=== PATIENT | male | born 1965 | race Caucasian/White ===

== ENCOUNTER 2021-04-30 12:29 | Inpatient (IN) | payer MEDICARE, SELFPAY ==
--- NOTE | 2021-04-30 | DI.ECHO.S_ITS ---
[facility]---------+ [facility] +---------+ : : [address] : [place] : : : : [id number] : : : : Phone: [phone]---------+ Echocardiogram Report + + :Name: JACKLYN BEARD Study Date: 05/01/2021 Height: 73 in : :[facility] ReadingLocation: Weight: 271 lb : : Gender: Male BSA: 2.4 m2 : :: 1965 Age: 55 yrs BP: 168/98 mmHg: :Reason For Study: CVA : : Performed By: James Betancourt : :Referring: DAMIEN LAW : + + Interpretation Summary The patient was in normal sinus rhythm during the exam. The left ventricle is normal in size. The ejection fraction is estimated to be 55-60%. No obvious LV thrombus seen. There appears to be hypokinesis of basal to mid inferior wall. The right ventricle is normal in size and function. No gross significant valvular abnormality seen. The atrial septum is aneurysmal. Injection of contrast documented no interatrial shunt. The IVC is of normal diameter and collapses greater than 50% with a sniff. This suggests a low right atrial pressure of 3 mm Hg. Procedure: A two-dimensional transthoracic echocardiogram with color flow and Doppler was performed. The study quality was technically difficult. There is no prior echocardiogram noted for this patient. The subcostal views were difficult to obtain and are suboptimal in quality. Aquisition of images difficult, patient very confused and unable to follow commands. The patient was in normal sinus rhythm during the exam. The patient had occasional PACs during the exam. Left Ventricle: The left ventricle is normal in size. Proximal septal thickening is noted. The echo findings are consistent with left ventricular outflow obstruction. There is no thrombus. The ejection fraction is estimated to be 55-60%. There appears to be hypokinesis of basal to mid inferior wall. Diastolic parameters suggest a relaxation abnormality of the left ventricle, consistent with probable normal filling pressures. Right Ventricle: The right ventricle is normal in size and function. Atria: Both atria are normal in size. Bubble study slide 57. No obvious shunting. The atrial septum is aneurysmal. Injection of contrast documented no interatrial shunt. The thickening of interatrial septum suggests lipomatous hypertrophy. Mitral Valve: The mitral valve is normal. There is no mitral regurgitation noted. Aortic Valve: The aortic valve is not well visualized. The aortic valve opens well. There is no aortic valve stenosis. No aortic regurgitation is present. Tricuspid Valve: The tricuspid valve is not well visualized, but is grossly normal. Pulmonary artery pressures cannot be estimated because of the lack of a measurable TR jet velocity but the IVC suggests a CVP of around 3 mmHg. There is trace tricuspid regurgitation. Pulmonic Valve: The pulmonic valve is not well visualized. Great Vessels: The aortic root is borderline dilated. The ascending aorta is normal in size. The aortic arch is normal in size. The IVC is of normal diameter and collapses greater than 50% with a sniff. This suggests a low right atrial pressure of 3 mm Hg. Pericardium/ Pleura There is no pericardial effusion. There is an anterior echo-free space consistent with a fat pad. There is no pleural effusion. MMode/2D Measurements & Calculations LVIDd: 4.8 cm LVOT diam: 2.1 cm LVIDs: 3.3 cm Ao root diam: 3.8 cm FS: 31.1 % asc Aorta Diam: 3.5 cm IVSd: 0.86 cm Ao Arch Diam (Prox Trans): 3.2 cm LVPWd: 1.5 cm LV engel. diameter/BSA (cm/m^2): 2.0 LV sys. diameter/BSA (cm/m^2): 1.4 LA A2 area: 23.2 cm2 RA long axis: 5.4 cm LA A4 area: 24.6 cm2 RA area: 16.3 cm2 LA length (vol): 7.2 cm RA vol: 42.1 ml LA vol: 67.1 ml RA : 17.2 ml/m2 LA vol index: 27.4 ml/m2 TAPSE: 2.0 cm Doppler Measurements & Calculations Ao V2 max: 119.5 cm/sec LVOT Max Willian: 81.6 cm/sec Ao V2 mean: 91.4 cm/sec LV V1 max P.7 mmHg Ao max P.7 mmHg LV V1 VTI: 15.8 cm Ao mean P.5 mmHg JENNIFER(I,D): 2.8 cm2 Ao V2 VTI: 19.8 cm JENNIFER(V,D): 2.4 cm2 sev ratio: 0.80 JENNIFER indexed to BSA (cm^2/m^2): 1.1 MV E max willian: 46.3 cm/sec PA V2 max: 79.2 cm/sec MV A max willian: 81.8 cm/sec PA V2 mean: 63.3 cm/sec MV E/A: 0.57 PA mean P.7 mmHg Med Peak E' Willian: 5.3 cm/sec PA pr(Accel): 19.1 mmHg E/E' med: 8.8 Lat Peak E' Willian: 6.5 cm/sec E/E' lat: 7.1 E/e' average: 8.0 MV dec time: 0.36 sec SV(LVOT): 54.8 ml Reading Physician:11:46 AM
[2021-04-30 13:13] VITALS: BP 218/118; PULSE 95; RESP 19; TEMP 36.9; O2SAT 100; BMI 37.1
--- NOTE | 2021-04-30 13:24 | DI.CT.S_ITS ---
PROCEDURE: CT HEAD/BRAIN WO CON INDICATIONS: r/o cva symptoms since Weds. TECHNIQUE: Noncontrast 4.5 mm thick angled axial sections acquired from the foramen magnum to the vertex, with coronal and sagittal reformats. For radiation dose reduction, the following was used: automated exposure control, adjustment of mA and/or kV according to patient size. COMPARISON: None. FINDINGS: Image quality: Excellent. CSF spaces: Basal cisterns are patent. No extra-axial fluid collections. Ventricles are normal in size and shape. Brain: There is a moderate to large hypodensity involving the left temporal lobe and occipital, suspicious for late subacute infarct. No mass effects or midline shift. No intracranial masses or hemorrhage. There is mild cerebral volume loss. Skull and face: Calvarium and visualized facial bones are intact, without suspicious lesions. Sinuses: Visualized sinuses and mastoids are clear. IMPRESSION: Moderate to large-sized hypodensity in the left temporal lobe and occipital, suspicious for late subacute infarct. Recommend MRI for follow-up evaluation. Dictated by: Jeanine Christian M.D. on 04/30/2021 at 13:47 Approved by: Jeanine Christian M.D. on 04/30/2021 at 13:52
--- NOTE | 2021-04-30 14:03 | DI.RAD.S_ITS ---
PROCEDURE: XR CHEST 1V INDICATIONS: Possible stroke TECHNIQUE: One view of the chest was acquired. COMPARISON: None. FINDINGS: Surgical changes and devices: None. Lungs and pleura: Lungs are clear. No pleural effusions or pneumothorax. Poor inspiratory effort does limit evaluation. Mediastinum: Mediastinal contours appear normal. Heart size is normal. Bones and chest wall: No suspicious bony lesions. Overlying soft tissues appear unremarkable. IMPRESSION: Normal chest, noting poor inspiratory effort. Dictated by: Monica Wray M.D. on 04/30/2021 at 14:29 Approved by: Monica Wray M.D. on 04/30/2021 at 14:29
--- NOTE | 2021-04-30 14:36 | DI.MRI.S_ITS ---
PROCEDURE: MR STROKE Pre- and post-contrast brain MRI, non-contrast brain MR angiogram, pre- and postcontrast neck MR angiogram INDICATIONS: stroke speech TECHNIQUE: Brain: Noncontrast axial T1 spin echo, axial T2 fast spin echo, sagittal and axial FLAIR, coronal T2 fast spin echo, axial gradient echo, axial diffusion and ADC through the brain. After the administration of contrast, axial 3D VIBE of the cranial vasculature and brain. Brain MRA: Non-contrast 3-D time of flight MR angiogram, with multiple lmudbzw-gvsyuzsnh-ciflwbyoqw (MIP) reformats performed. Neck MRA: Axial and sagittal TruFISP through the neck. Coronal dynamic MR angiogram during administration of contrast in the arterial and venous phases, with 3-dimenstional oqrhsus-flhqvlaco-wjjiatqimf (MIP) reformats constructed from subtraction images. COMPARISON: [facility], CR, XR CHEST 1V, 04/30/2021, 14:04. [facility], CT, CT HEAD/BRAIN WO CON, 04/30/2021, 13:36. FINDINGS: Image quality: Excellent. BRAIN: CSF spaces: Ventricles are normal in size and shape. Basal cisterns are patent. No extra-axial fluid collections. Brain: There is a moderate to large area of restricted diffusion involving the left temporal lobe including the insula cortex, as well as the left occipital lobe, consistent with acute or subacute infarct. There is cerebral edema. No mass effect. No intracranial bleed. Mild periventricular white matter chronic small vessel ischemic changes are present. Brainstem appears normal. Normal intravascular flow voids are present. No abnormal intracranial enhancement. Skull and face: Calvarial marrow signal is normal. Orbits appear normal. Sinuses: Sinuses and mastoids are clear. BRAIN MR ANGIOGRAM: Anterior circulation: Intracranial internal carotid arteries are normal in size and enhancement. The flow within the paired anterior cerebral arteries is normal and symmetric. There is diffuse irregularity of the M1 segment of the left vertebral artery. There is high-grade stenosis or possible occlusion of the inferior division of M2 of the left middle cerebral artery. A short segment cbuymaix-wz-jqme grade stenosis is seen in the proximal right M2 segment The anterior communicating artery is seen. Posterior circulation: Dominant left vertebral artery. The right terminal vertebral artery is hypoplastic and terminates at PICA. The left vertebral artery continues to a normal appearing basilar artery. origin of posterior cerebral arteries bilaterally. There is aplastic or hypoplasia of posterior communicating arteries bilaterally. The flow within the posterior cerebral arteries is normal and symmetric. No high-grade stenosis, occlusions, or aneurysms. NECK MR ANGIOGRAM: Carotids: Great vessels demonstrate a conventional anatomy as they arise from the aortic arch. The origins of the common carotid arteries appear patent. The calibers and courses of both common carotid arteries are normal. There is mild stenosis at the left carotid bifurcation (less than 20%). Right carotid bifurcation is normal. The internal carotid arteries demonstrate normal course and caliber. Posterior circulation: The origins of the vertebral arteries are suboptimally visualized. More superior portions of both vertebral arteries demonstrate normal course and caliber, and join to form a normal appearing basilar artery. Miscellaneous: Subclavian arteries appear patent. Pre-contrast images through the neck show no soft tissue abnormalities. IMPRESSION: BRAIN MRI: 1. Moderate to large area of acute or subacute infarct involving the left temporoparietal lobe. No mass effect or intracranial bleed. BRAIN MR ANGIOGRAM: 1. 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 There is also diffuse irregularity of the M1 segment of the left renal cerebral artery. 2. Short segment moderate to high-grade stenosis of the right M2 segment. 3. origin of posterior cerebral arteries bilaterally. 4. Dominant left vertebral artery which supplies the basilar artery. The right vertebral artery terminates at PICA. NECK MR ANGIOGRAM: No high-grade stenosis or occlusion in cervical carotid arteries or vertebral arteries. Dictated by: Jeanine Christian M.D. on 04/30/2021 at 15:45 Approved by: Jeanine Christian M.D. on 04/30/2021 at 16:24
--- NOTE | 2021-04-30 14:39 | ED_ITS ---
HPI - Neuro Symptoms/Deficit General Chief Complaint: Neuro Symptoms/Deficit Stated Complaint: Possible Stroke Monday Time Seen by Provider: 04/30/21 14:27 Source: patient and family Mode of arrival: Family Vehicle Limitations: no limitations History of Present Illness HPI Narrative: Patient is a 55-year-old male who presents with speech difficulty ongoing for the last 2 days. His mother noticed it 2 days ago. She did not see him yesterday but his speech continued to be bad today. He is unable to communicate and get the correct words out. He no weakness he does have some right-sided facial droop. No prior history of stroke or TIA. Patient is overall a poor historian because of symptoms. On Anticoagulants: No Related Data Home Medications Medication Instructions Recorded Confirmed No Known Home Medications 04/30/21 04/30/21 Allergies Allergy/AdvReac Type Severity Reaction Status Date / Time No Known Drug Allergies Allergy Verified 04/30/21 13:13 Review of Systems Review of Systems ROS Unobtainable: Unobtainable due to medical condition Hematologic/Lymphatic On Anticoagulants: No Patient History Social History household members: friend(s) Smoking Status: Current every day smoker alcohol intake: current Smoking Status: Current every day smoker tobacco type: cigarettes alcohol intake frequency: 3 or more drinks per day Alcohol type: hard liquor Substance Use Type: does not use Exam Initial Vital Signs Initial Vital Signs: Vital Signs Temperature 98.4 F 04/30/21 13:13 Pulse Rate 95 H 04/30/21 13:13 Respiratory Rate 19 04/30/21 13:13 Blood Pressure 218/118 H 04/30/21 13:13 Pulse Oximetry 100 04/30/21 13:13 GENERAL: Alert 55-year-old maleand in no acute distress. HEENT: Head atraumatic,EOMI, pupils reactive, face symmetric, moist] mucous membranes CARDIOVASCULAR: Regular rate and rhythm without murmurs, rubs or gallops. RESPIRATORY: Breath sounds equal bilaterally, no wheezes rales or rhonchi. ABDOMEN: Soft, nontender. Normoactive bowel sounds all 4 quadrants. No guarding or rebound. EXTREMITIES: Normal range of motion, no clubbing or edema. Neurovascularly intact NEUROLOGICAL: Alert and oriented x1. 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 SKIN: Warm, dry, no laceration, no petechiae, no rashes or lesions. Scores NIH Stroke Scale Level of Conciousness: Alert, keenly responsive Ask month/age: Answers neither question correctly, aphasic, stuporous, coma Open/close eyes, close hand: Performs both tasks correctly Best gaze horizontal: Normal Visual levin: No visual loss Facial palsy: Normal symetrical movement Left arm drift: No drift for full 10 sec Right arm drift: No drift for full 10 sec Left leg drift: No drift for full 5 sec Right leg drift: No drift for full 5 sec Limb ataxia: Absent Sensory on face/arms/legs: Normal, no sensory loss Best language: Severe aphasia, not much is understood, fragmented Dysarthria: Mild to mod,some slurring Extinction or inattention: No abnormality Total NIH Stroke scale score: 5 Course Orders Ordered: ED Orders 04/30/21 13:24 CT head/brain wo con Stat 04/30/21 14:03 XR chest 1V Stat Urine Drug Screen, Rapid Stat 04/30/21 14:36 MR stroke Stat 04/30/21 14:50 COVID19 - ADMIT (CARPET CUTTER swab/PCR) Stat Complete Blood Count AUTO DIFF Stat Comprehensive Metabolic Panel Stat Troponin & CK Cardiac Panel Stat 04/30/21 16:06 EKG-12 Lead Stat Acetaminophen (Acetaminophen 325 Mg Tablet) 650 mg PO Q6HR PRN PRN Reason: Fever/Mild Pain (1-3) Aspirin (Aspirin Ec 81 Mg Tablet) 81 mg PO DAILY ADRYAN Atorvastatin Calcium (Atorvastatin 20 Mg Tablet) 80 mg PO BEDTIME ADRYAN Clopidogrel Bisulfate (Clopidogrel 75 Mg Tablet) 75 mg PO DAILY ADRYAN Enoxaparin Sodium (Enoxaparin 40 Mg/0.4 Ml Syringe) 40 mg SUBCUT DAILY ADRYAN Naloxone HCl (Naloxone 0.4 Mg/Ml Vial) 0.2 mg IV Q2MIN PRN PRN Reason: Opiate Reversal Ondansetron HCl (Ondansetron 4 Mg/2 Ml Inj) 4 mg IV Q8HR PRN PRN Reason: Nausea And Vomiting Discontinued Medications Aspirin (Aspirin 81 Mg Chew Tab) 324 mg PO NOW ONE Stop: 04/30/21 17:31 Last Admin: 04/30/21 17:37 Dose: 324 mg Documented by: KYREE Clopidogrel Bisulfate (Clopidogrel 75 Mg Tablet) 75 mg PO NOW ONE Stop: 04/30/21 17:31 Last Admin: 04/30/21 17:37 Dose: 75 mg Documented by: YKREE Vital Signs Vital signs: Vital Signs - 8 hr 04/30/21 13:13 04/30/21 14:43 04/30/21 17:41 Temperature 98.4 F 98.7 F Pulse Rate 95 H 87 70 Respiratory Rate 19 16 Blood Pressure 218/118 H 184/105 H 167/105 H Pulse Oximetry 100 98 99 MDM - Neuro Symptoms/Deficit Lab Data Result diagrams: 04/30/21 14:50 04/30/21 14:50 Labs: Lab Results 04/30/21 04/30/21 04/30/21 Range/Units 14:50 14:50 14:50 WBC 10.2 (4.5-11.0) X10^3/uL RBC 4.90 (4.5-5.9) X10^6/uL Hgb 15.5 (13.5-17.5) g/dL Hct 44.3 (41-53) % MCV 90.6 (80-100) fL MCH 31.6 (26-34) PG MCHC 34.9 (30-36) % RDW 13.3 (11.6-14.8) % Plt Count 230 (150-400) X10^3/uL Neut % (Auto) 74.4 (50-75) % Lymph % (Auto) 17.6 L (25-40) % Bland % (Auto) 6.3 (3-14) % Eos % (Auto) 0.8 L (2-4) % Baso % (Auto) 0.9 (0-2) % Neut # (Auto) 7600 H (5384-2828) /uL Lymph # (Auto) 1800 (6467-6719) /uL Bland # (Auto) 600 (0-900) /uL Eos # (Auto) 100 (0-450) /uL Baso # (Auto) 100 (0-100) /uL Sodium 134 L (137-145) mmol/L Potassium 4.1 (3.4-5.1) mmol/L Chloride 99 (98-107) mmol/L Carbon Dioxide 22 (22-32) mmol/L BUN 15 (9-20) mg/dL Creatinine 0.70 (0.66-1.25) mg/dL Estimated GFR > 60.0 (>60) mL/min BUN/Creatinine Ratio 21.4 (6-22) Glucose 265 H (70-100) mg/dL Hemoglobin A1c (4.0-6.0) % Calcium 9.9 (8.4-10.2) mg/dL Total Bilirubin 0.9 (0.2-1.3) mg/dL AST 32 (17-59) IU/L ALT 35 (<50) IU/L Alkaline Phosphatase 79 (38-126) U/L Total Creatine Kinase 56 (55-170) U/L CK-MB (CK-2) TNP CK-MB (CK-2) Rel Index TNP Troponin I < 0.012 (0.01-0.034) ng/mL Total Protein 8.1 (6.3-8.2) g/dL Albumin 4.7 (3.5-5.0) g/dL Globulin 3.4 (1.7-4.1) g/dL Albumin/Globulin Ratio 1.4 (1.0-2.8) SARS-CoV-2 (PCR) Negative (Negative) 04/30/21 Range/Units 14:50 WBC (4.5-11.0) X10^3/uL RBC (4.5-5.9) X10^6/uL Hgb (13.5-17.5) g/dL Hct (41-53) % MCV (80-100) fL MCH (26-34) PG MCHC (30-36) % RDW (11.6-14.8) % Plt Count (150-400) X10^3/uL Neut % (Auto) (50-75) % Lymph % (Auto) (25-40) % Bland % (Auto) (3-14) % Eos % (Auto) (2-4) % Baso % (Auto) (0-2) % Neut # (Auto) (1687-0884) /uL Lymph # (Auto) (6806-6285) /uL Bland # (Auto) (0-900) /uL Eos # (Auto) (0-450) /uL Baso # (Auto) (0-100) /uL Sodium (137-145) mmol/L Potassium (3.4-5.1) mmol/L Chloride (98-107) mmol/L Carbon Dioxide (22-32) mmol/L BUN (9-20) mg/dL Creatinine (0.66-1.25) mg/dL Estimated GFR (>60) mL/min BUN/Creatinine Ratio (6-22) Glucose (70-100) mg/dL Hemoglobin A1c 10.4 H (4.0-6.0) % Calcium (8.4-10.2) mg/dL Total Bilirubin (0.2-1.3) mg/dL AST (17-59) IU/L ALT (<50) IU/L Alkaline Phosphatase (38-126) U/L Total Creatine Kinase (55-170) U/L CK-MB (CK-2) CK-MB (CK-2) Rel Index Troponin I (0.01-0.034) ng/mL Total Protein (6.3-8.2) g/dL Albumin (3.5-5.0) g/dL Globulin (1.7-4.1) g/dL Albumin/Globulin Ratio (1.0-2.8) SARS-CoV-2 (PCR) (Negative) Imaging Data CT scan - head: Radiologist's Impression: PROCEDURE:? CT HEAD/BRAIN WO CON ? INDICATIONS:? r/o cva symptoms since . ? TECHNIQUE:? Noncontrast 4.5 mm thick angled axial sections acquired from the foramen magnum to the vertex, with coronal and sagittal reformats.? For radiation dose reduction, the following was used:? automated exposure control, adjustment of mA and/or kV according to patient size.? ? COMPARISON:? None. ? FINDINGS:? Image quality:? Excellent.? ? CSF spaces:? Basal cisterns are patent.? No extra-axial fluid collections.? Vent ricles are normal in size and shape.? ? Brain:? There is a moderate to large hypodensity involving the left temporal lobe and occipital, suspicious for late subacute infarct.? No mass effects or midline shift.? No intracranial masses or hemorrhage.? There is mild cerebral volume loss.? ? Skull and face:? Calvarium and visualized facial bones are intact, without suspicious lesions.? ? Sinuses:? Visualized sinuses and mastoids are clear.? ? IMPRESSION:? Moderate to large-sized hypodensity in the left temporal lobe and occipital, suspicious for late subacute infarct.? Recommend MRI for follow-up evaluation. ? ? Dictated by: Jeanine Christian M.D. on 04/30/2021 at 13:47 ? ? Approved by: Jeanine Christian M.D. on 04/30/2021 at 13:52 MR brain: Radiologist's Impression: PROCEDURE:? MR STROKE Pre- and post-contrast brain MRI, non-contrast brain MR angiogram, pre- and postcontrast neck MR angiogram ? INDICATIONS:? stroke speech ? TECHNIQUE:? Brain:? Noncontrast axial T1 spin echo, axial T2 fast spin echo, sagittal and axial FLAIR, coronal T2 fast spin echo, axial gradient echo, axial diffusion and ADC through the brain.? After the administration of contrast, axial 3D VIBE of the cranial vasculature and brain.? Brain MRA:? Non-contrast 3-D time of flight MR angiogram, with multiple twpzzaq-egomczbzb-dfesinotia (MIP) reformats performed.? Neck MRA:? Axial and sagittal TruFISP through the neck.? Coronal dynamic MR angiogram during administration of contrast in the arterial and venous phases, with 3- dimenstional suzetzy-auwwjnprx-bbkvuibfvh (MIP) reformats constructed from subtraction images.? ? COMPARISON:? [facility], CR, XR CHEST 1V, 04/30/2021, 14:04.? [facility], CT, CT HEAD/BRAIN WO CON, 04/30/2021, 13:36. ? FINDINGS:? Image quality:? Excellent.? ? BRAIN:? CSF spaces:? Ventricles are normal in size and shape.? Basal cisterns are patent.? No extra-axial fluid collections.? Brain:? There is a moderate to large area of restricted diffusion involving the left temporal lobe including the insula cortex, as well as the left occipital lobe, consistent with acute or subacute infarct.? There is cerebral edema.? No mass effect.? No intracranial bleed.? Mild periventricular white matter chronic small vessel ischemic changes are present.? Brainstem appears normal.? Normal intravascular flow voids are present.? No abnormal intracranial enhancement.? Skull and face:? Calvarial marrow signal is normal.? Orbits appear normal.? Sinuses:? Sinuses and mastoids are clear.? ? BRAIN MR ANGIOGRAM:? Anterior circulation:? Intracranial internal carotid arteries are normal in size and enhancement.? The flow within the paired anterior cerebral arteries is normal and symmetric.? There is diffuse irregularity of the M1 segment of the left vertebral artery. ?There is high-grade stenosis or possible occlusion of the inferior division of M2 of the left middle cerebral artery.? A short segment brhdmopb-uf-kpff grade stenosis is seen in the proximal right M2 segment The anterior communicating artery is seen.? Posterior circulation:? Dominant left vertebral artery.? The right terminal vertebral artery is hypoplastic and terminates at PICA.? The left vertebral artery continues to a normal appearing basilar artery.? origin of posterior cerebral arteries bilaterally.? There is aplastic or hypoplasia of posterior communicating arteries bilaterally.? The flow within the posterior cerebral arteries is normal and sy mmetric.? No high-grade stenosis, occlusions, or aneurysms.? ? NECK MR ANGIOGRAM:? Carotids:? Great vessels demonstrate a conventional anatomy as they arise from the aortic arch.? The origins of the common carotid arteries appear patent.? The calibers and courses of both common carotid arteries are normal.? There is mild stenosis at the left carotid bifurcation (less than 20%).? Right carotid bifurcation is normal.? The internal carotid arteries demonstrate normal course and caliber.? Posterior circulation:? The origins of the vertebral arteries are suboptimally visualized.? More superior portions of both vertebral arteries demonstrate normal course and caliber, and join to form a normal appearing basilar artery.? Miscellaneous:? Subclavian arteries appear patent.? Pre-contrast images through the neck show no soft tissue abnormalities.? ? IMPRESSION:? ? BRAIN MRI:? ? 1. Moderate to large area of acute or subacute infarct involving the left temporoparietal lobe.? No mass effect or intracranial bleed.? ? BRAIN MR ANGIOGRAM:? ? 1. High-grade stenosis/occlusion of the inferior division of M2 segment of the left middle cerebral artery.? There is also diffuse irregularity of the M1 segment of the left renal cerebral artery. ? 2. Short segment moderate to high-grade stenosis of the right M2 segment.? ? 3. origin of posterior cerebral arteries bilaterally. ? 4. Dominant left vertebral artery which supplies the basilar artery.? The right vertebral artery terminates at PICA.? ? NECK MR ANGIOGRAM:? ? No high-grade stenosis or occlusion in cervical carotid arteries or vertebral a rteries. ? ? Dictated by: Jeanine Christian M.D. on 04/30/2021 at 15:45 ? ? Approved by: Jeanine Christian M.D. on 04/30/2021 at 16:24 ? ECG Data Interpretation: Normal sinus rhythm rate 86 [place] interval 142 QRS [address] changes T-wave inversion noted in lead 2 only spots of artifact appreciated MDM Narrative Medical decision making narrative: The patient's last known well was 2 days prior he is having obvious word finding issue both CT and MRI confirm large to moderate acute to subacute stroke. He is found to have high-grade stenosis of his him to. I discussed case with tele stroke recommend maximum medical therapy with aspirin 81 mg and Plavix 75 mg along with Lipitor 80 daily and to control all other chronic ongoing health issues. Discussed case with Dr. chapman who happily patient Discharge Plan Departure Patient Disposition: Admitted As Inpatient Clinical Impression: Cerebrovascular accident Admit Date/Time: 04/30/21 17:58 Admit Provider: Tiana Chapman
[2021-04-30 14:43] VITALS: BP 184/105; PULSE 87; TEMP 37.1; O2SAT 98
[2021-04-30 14:56] LABS: Add Manual Diff / Slide Review NO; Basophils Absolute Auto 100 /uL (0-100); Basophils Percent Auto 0.9 % (0-2); Eosinophils Absolute Auto 100 /uL (0-450); Eosinophils Percent Auto 0.8 % (2-4); Hematocrit 44.3 % (41-53); Hemoglobin 15.5 g/dL (13.5-17.5); Lymphocytes Absolute Auto 1800 /uL (1100-4500); Lymphocytes Percent Auto 17.6 % (25-40); Mean Corpuscular HGB Conc 34.9 % (30-36); Mean Corpuscular Hemoglobin 31.6 PG (26-34); Mean Corpuscular Volume 90.6 fL (80-100); Monocytes Absolute Auto 600 /uL (0-900); Monocytes Percent Auto 6.3 % (3-14); Neutrophils Absolute Auto 7600 /uL (1500-7000); Neutrophils Percent Auto 74.4 % (50-75); Platelet Count 230 X10^3/uL (150-400); Red Cell Distribution Width 13.3 % (11.6-14.8); White Blood Cell Count 10.2 X10^3/uL (4.5-11.0)
[2021-04-30 15:13] LABS: Alanine Aminotransferase 35 IU/L (<50); Albumin 4.7 g/dL (3.5-5.0); Albumin Globulin Ratio 1.4 (1.0-2.8); Alkaline Phosphatase 79 U/L (38-126); Aspartate Aminotransferase 32 IU/L (17-59); BUN Creatinine Ratio 21.4 (6-22); Bilirubin Total 0.9 mg/dL (0.2-1.3); Blood Urea Nitrogen 15 mg/dL (9-20); Calcium 9.9 mg/dL (8.4-10.2); Carbon Dioxide 22 mmol/L (22-32); Chloride 99 mmol/L (98-107); Creatine Kinase 56 U/L (55-170); Estimated Glomerular Filt Rate > 60.0 mL/min (>60); Globulin 3.4 g/dL (1.7-4.1); Glucose 265 mg/dL (70-100); HEMOLYSIS 17 (0-50); Potassium 4.1 mmol/L (3.4-5.1); Sodium 134 mmol/L (137-145); Total Protein 8.1 g/dL (6.3-8.2)
[2021-04-30 15:23] LABS: Troponin I < 0.012 ng/mL (0.01-0.034)
[2021-04-30 15:49] LABS: COVID19 - ADMIT (NP swab/PCR) Negative (Negative)
[2021-04-30] MEDS: CLOPIDOGREL 75 MG TABLET PO (17:37)
[2021-04-30] MEDS: ASPIRIN 81 MG CHEW TAB 324 MG PO (17:37)
[2021-04-30 17:41] VITALS: BP 167/105; PULSE 70; RESP 16; O2SAT 99
[2021-04-30 18:48] VITALS: BMI 35.7
[2021-04-30 19:03] VITALS: BP 168/98; PULSE 73; RESP 16; TEMP 37; O2SAT 100
--- NOTE | 2021-04-30 19:03 | PC.ADMIT ---
[id number] [facility] Admission Note: The patient,Alexander Sterling,55 y/o, was given written information regarding hospital policies, unit procedures and contact persons. Patient's smoking status: Current every day smoker. Pt arrvied from ED via w/c. Ambulated to bed. Difficulty finding words. Mom at bedside helping with admission assessment questions. VSS. RA. Denies pain. Noted Left eye erythema. Bed alarm on. C Vital Signs - 8 hr 04/30/21 13:13 04/30/21 14:43 04/30/21 17:41 Temperature 98.4 F 98.7 F Pulse Rate 95 H 87 70 Respiratory Rate 19 16 Blood Pressure 218/118 H 184/105 H 167/105 H Pulse Oximetry 100 98 99 04/30/21 19:03 Temperature 98.6 F Pulse Rate 73 Respiratory Rate 16 Blood Pressure 168/98 H Pulse Oximetry 100
[2021-04-30 20:06] LABS: Hemoglobin A1C% w Est Avg Glu 10.4 % (4.0-6.0)
[2021-04-30 20:51] LABS: Thyroid Stimulating Hormone 1.56 uIU/mL (0.47-4.68)
[2021-04-30] MEDS: chlordiazePOXIDE 10 MG CAPSULE PO (21:54)
[2021-04-30] MEDS: ATORVASTATIN 20 MG TABLET 80 MG PO (21:54)
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
[2021-05-01 00:17] VITALS: BP 162/68; PULSE 67; RESP 16; TEMP 36.3; O2SAT 98
[2021-05-01 04:54] VITALS: BP 137/93; PULSE 65; RESP 18; TEMP 37.1; O2SAT 100
[2021-05-01 06:07] LABS: UR Morphine/Opiate cutoff 300 Negative (Negative); Ur Creatinine 20 (Normal); Ur Specific Gravity 1.025 (Normal); Urine Amphetamines Negative (Negative); Urine Barbiturates Negative (Negative); Urine Benzodiazepines Negative (Negative); Urine Cocaine Negative (Negative); Urine MDMA Negative (Negative); Urine Methadone Negative (Negative); Urine Methamphetamines Negative (Negative); Urine Oxycodone Negative (Negative); Urine Phencyclidine Negative (Negative); Urine Tetrahydrocannabinol Negative (Negative); Urine Tricyclic Antidepressant Negative (Negative); Urine pH 5 (Normal)
[2021-05-01 07:20] LABS: Add Manual Diff / Slide Review NO; Basophils Absolute Auto 100 /uL (0-100); Basophils Percent Auto 0.9 % (0-2); Eosinophils Absolute Auto 200 /uL (0-450); Eosinophils Percent Auto 2.4 % (2-4); Hematocrit 41.8 % (41-53); Hemoglobin 14.9 g/dL (13.5-17.5); Lymphocytes Absolute Auto 2100 /uL (1100-4500); Lymphocytes Percent Auto 26.4 % (25-40); Mean Corpuscular HGB Conc 35.5 % (30-36); Monocytes Absolute Auto 700 /uL (0-900); Monocytes Percent Auto 8.5 % (3-14); Neutrophils Absolute Auto 4900 /uL (1500-7000); Neutrophils Percent Auto 61.8 % (50-75); Platelet Count 194 X10^3/uL (150-400); Red Blood Cell Count 4.65 X10^6/uL (4.5-5.9); Red Cell Distribution Width 13.7 % (11.6-14.8); White Blood Cell Count 7.9 X10^3/uL (4.5-11.0)
[2021-05-01 07:33] LABS: Cholesterol 212 mg/dL (140-199); HDL Cholesterol 41 mg/dL (40-60); LDL Cholesterol Calculated 126 mg/dL (<100); Triglycerides 223 mg/dL (35-150)
[2021-05-01 07:34] LABS: Alanine Aminotransferase 32 IU/L (<50); Albumin Globulin Ratio 1.3 (1.0-2.8); Alkaline Phosphatase 65 U/L (38-126); Aspartate Aminotransferase 31 IU/L (17-59); BUN Creatinine Ratio 21.2 (6-22); Bilirubin Total 0.9 mg/dL (0.2-1.3); Bilirubin Unconjugated 0.9 mg/dL (0.0-1.1); Blood Urea Nitrogen 14 mg/dL (9-20); Calcium 9.2 mg/dL (8.4-10.2); Carbon Dioxide 27 mmol/L (22-32); Chloride 101 mmol/L (98-107); Estimated Glomerular Filt Rate > 60.0 mL/min (>60); Glucose 249 mg/dL (70-100); HEMOLYSIS < 15 (0-50); Magnesium 1.9 mg/dL (1.6-2.3); Potassium 3.7 mmol/L (3.4-5.1); Sodium 136 mmol/L (137-145)
--- NOTE | 2021-05-01 08:00 | P.PN_ITS ---
Subjective Subjective Interval history: Patient having difficulty with word-finding and articulation this morning. This has understandably made him feel frustrated, and he was tearful during our conversation. However, he endorses having a good attitude about working with PT/OT, speech therapy, and his overall prognosis. Exam Vital Signs (past 8 hours): - 05/02/21 06:06 Temperature 97.1 F L Pulse Rate 76 Respiratory Rate 18 Blood Pressure 155/86 H Pulse Oximetry 97 Oxygen Delivery Method Room Air Oxygen Flow Rate 0 Const Other: Patient sitting up in bed comfortably upon my entering the room, eating breakfast, and in no apparent acute distress Eyes Other: No scleral icterus appreciated. Neck Other: No carotid bruits appreciated. Resp Other: Clear to auscultation bilaterally. Cardio Other: Regular rate and rhythm. S1 and S2 heart sounds auscultated, with no extra heart sounds or murmurs appreciated. GI Other: Soft, non-distended, non-tender, bowel sounds present. Neuro Other: CN II-XII intact, with no focal motor neurological deficits appreciated. Expressive aphasia appreciated. Objective Labs Result Diagrams: 05/02/21 05:55 05/02/21 05:55 Labs: Laboratory Results - last 24 hr 05/01/21 05/02/21 05/02/21 16:04 05:55 05:55 WBC 7.6 RBC 4.45 L Hgb 14.2 Hct 40.1 L MCV 90.1 MCH 32.0 MCHC 35.5 RDW 13.5 Plt Count 191 Neut % (Auto) 55.0 Lymph % (Auto) 31.7 Sebastian % (Auto) 9.9 Eos % (Auto) 2.9 Baso % (Auto) 0.5 Neut # (Auto) 4200 Lymph # (Auto) 2400 Sebastian # (Auto) 800 Eos # (Auto) 200 Baso # (Auto) 0 Sodium 138 Potassium 3.8 Chloride 102 Carbon Dioxide 30 BUN 11 Creatinine 0.66 Estimated GFR > 60.0 BUN/Creatinine Ratio 16.7 Glucose 196 H Calcium 9.4 Magnesium 2.1 Total Bilirubin 0.8 Conjugated Bilirubin 0.0 Unconjugated Bilirubin 0.7 AST 30 ALT 33 Alkaline Phosphatase 58 Total Protein 7.0 Albumin 3.9 Globulin 3.1 Albumin/Globulin Ratio 1.3 Urine Color Yellow Urine Appearance Clear Urine pH 6.5 Ur Specific [place] 1.010 Urine Protein Negative Urine Glucose (UA) 1+ H Urine Ketones 1+ H Urine Occult Blood Negative Urine Nitrate Negative Urine Bilirubin Negative Urine Urobilinogen 0.2 Ur Leukocyte Esterase Negative Urine RBC 1-5/hpf Urine WBC 0-1/hpf Urine Bacteria None seen Ur Culture Indicated? Cult not indicated [facility] Medical History (Updated 05/01/21 @ 00:01 by HAILY Love) Diabetes type 2, uncontrolled Surgical History (Updated 05/01/21 @ 00:01 by HAILY Love) No history of previous surgery Social History household members: friend(s) Smoking Status: Current every day smoker alcohol intake: current Assessment & Plan Assessment & Plan narrative: Alexander Sterling is admitted for an acute/subacute left parietal/temporal CVA. 1. Acute/subacute left parietal/temporal CVA * Cardiac telemetry * NIH score greater than 5 no. NIH scoring and neuro checks q 6 hours * Dual antiplatelet therapy:? Yes, initiate dual antiplatelet therapy with clopidogrel 75 mg p.o. daily and aspirin 81 mg p.o. daily * Complete Echo with bubble study? * PT/OT/ST evaluation 2. Hypertension, acute with an admission bp of 208/118, present on admission * Allow for permissive hypertension of 220/110 HR 60 to allow for brain per fusion * Allow for permissive hypertension for brain profusion of a systolic of 220 and a diastolic of 105 * IV labetolol if his systolic exceeds 220 or diastolic greater than 105 * Will start lisinopril 20 mg daily today 3. History of polysubstance abuse and alcohol dependence * [facility] protocol * Start oral thiamine, folic acid and a multivitamin * He is started on po librium * Seizure precautions 4. Diabetes type 2, uncontrolled and present on admission * A1c is greater than 10 * Glargine subQ 15 mg at bedtime and low dose correctional scale 5. Coronary artery diseaae * Atorvastatin 80 mg po at bedtime 6. Tobacco dependence * He is written for a Nicoderm patch 14 mcg daily VTE Prophylaxis: Enoxaparin 40 mg once daily Time Spent With Patient Critical Care time: I spent a total of [] minutes of critical care time on this patient's care today; this time is exclusive of procedural time. Quality Stroke Contraindication Not Initiating IV-Tpa: Contraindicated (Outside of window) Onset of Symptoms Date: 05/05/21 Symptom Onset Unknown: Yes Rehab Services Assessed: Stroke rehabilitation
[2021-05-01 08:14] VITALS: BP 160/79; PULSE 70; RESP 16; TEMP 36.8; O2SAT 99
[2021-05-01] MEDS: ENOXAPARIN 40 MG/0.4 ML SYRINGE SUBCUT (08:32)
[2021-05-01] MEDS: MULTIVITAMIN 1 TABLET 1 TAB PO (08:32)
[2021-05-01] MEDS: ASPIRIN EC 81 MG TABLET PO (08:32)
[2021-05-01] MEDS: NICOTINE 14 PATCH 14 MG TOP (08:32)
[2021-05-01] MEDS: chlordiazePOXIDE 10 MG CAPSULE PO ×3 (08:32→20:52)
[2021-05-01] MEDS: FOLIC ACID 1 MG TABLET PO (08:32)
[2021-05-01] MEDS: THIAMINE 100 MG TABLET PO (08:40)
[2021-05-01] MEDS: INSULIN LISPRO 100 UNIT/ML 3ML VIAL SUBCUT ×4 (09:25→20:53)
--- NOTE | 2021-05-01 11:25 | OT.IP.EVAL ---
Current Diagnoses Cerebral infarction, unspecified (04/30/21) Past Medical History (Last Updated 05/01/21 @ 00:01 by HAILY Love) Diabetes type 2, uncontrolled No history of previous surgery Surgical History (Last Updated 05/01/21 @ 00:01 by HAILY Love) No history of previous surgery Occupational Therapy Inpatient Evaluation/Re-Eval M2 OT-IP Current Condition Start: 05/01/21 12:21 Freq: Status: Active Protocol: Document 05/01/21 12:23 [facility] (Rec: 05/01/21 12:36 [facility] [id number]) Occupational Therapy Current Condition Current Condition Evaluation Date 05/01/21 Treatment Diagnosis Left parietal/temporal CVA Diagnosis Onset Date 04/30/21 M3 OT- IP Subjective and Pain Start: 05/01/21 12:21 Freq: Status: Active Protocol: Document 05/01/21 12:23 [facility] (Rec: 05/01/21 12:36 [facility] [id number]) OT- Subjective Occupational Therapy Visit Type Type Initial Evaluation Visit Start Time 10:25 Visit Stop Time 11:25 Total Visit Minutes 60 Occupational Therapy Visit Comments Patient Comments Pt agreed to work with OT. Patient/Caregiver Goals Pt not able to state due to severe expressive aphasia at this time. M4 OT- IP ADL's Start: 05/01/21 12:21 Freq: Status: Active Protocol: Document 05/01/21 12:23 [facility] (Rec: 05/01/21 12:36 [facility] [id number]) OT ADL-Grooming General Evaluation Grooming Ability Standby Assistance Areas Needing Assistance Retrieving/Set-up of Grooming Items Comments OT Grooming Comments Pt able to stand at sink for grooming needs. OT ADL-Oral Care General Eval Oral Care Ability Independent OT ADL-Dressing General Eval Lower Body Dressing Ability Independent OT ADL-Toileting Comments OT Toileting Comments Pt did not have to use the toilet at the time. OT ADL-Bathing Comments OT Bathing Comments NOt performed. M5 OT- IP IADL's Start: 05/01/21 12:21 Freq: Status: Active Protocol: Document 05/01/21 12:23 [facility] (Rec: 05/01/21 12:36 [facility] [id number]) OT-Instrumental Activities of Daily Living Home Safety Awareness Home Safety Comments Due to expressive >>receptive aphasia pt not able to get the words out to answer questions and would perseverate on words at times, ...turn, turn , w,w,w,w, etc... M6 OT- IP Functional Cognition Start: 05/01/21 12:21 Freq: Status: Active Protocol: Document 05/01/21 12:23 [facility] (Rec: 05/01/21 12:36 [facility] [id number]) Cognitive Factors Limiting Selfcare Function Cognitive Ability Level of Alertness Alert Ability to Follow Commands Able to Follow One Step Commands Cognitive Comments Cognitive Assessment Comments Hard to fully assess. Pt able to follow commands for ADL needs. Pt able to follow multiple directions with cues for [place] Making part B and scored 7 minutes with ZULAY vc which implies severe impairment for visual attention, task switching, speed of processing, mental flexibility and executive functioning. When suggested pt not drive at this time pt understood and got tearful. At times pt able to automatically get the words out, turn off the light, doctor. Pt not able to spell or read the alphabet. Pt able to read the word doctor. Pt given communication pictures to use to help him try to communicate his needs. OT- Vision and Hearing OT- Vision Assessment Vision Assessment Comments Pt able to scan numbers and letter on the paper, but hard to fully assess due to pt's expressive aphasia. M7 OT- IP Mobility and Balance Start: 05/01/21 12:21 Freq: Status: Active Protocol: Document 05/01/21 12:23 [facility] (Rec: 05/01/21 12:36 [facility] [id number]) OT- Bed Mobility Assessment Rolling Level of Assistance Independent Supine to Sit Supine to Sit Assist Independent Sit to Supine Sit to Supine Assist Independent Scooting Scooting to Edge of Bed Independent,Minimal Assistance OT-Transfer Assessment Sit to and From Stand Sit to and from Stand Independent Transfers Transfer Ability Independent Technique Transfer Destination Bed,Chair Devices Transfer Assistive Devices Gait Belt Comments Mobility Comments Pt able to independently walk in the room on his own with good safety. OT- Balance Assessment Sitting Balance and Reactions Static Sitting Balance Ability Normal Dynamic Sitting Balance Ability Normal Standing Balance and Reactions Static Standing Balance Ability Normal Dynamic Standing Balance Ability Good M8 OT- IP Objective Assessments Start: 05/01/21 12:21 Freq: Status: Active Protocol: Document 05/01/21 12:23 [facility] (Rec: 05/01/21 12:36 [facility] [id number]) OT Gross Range of Motion Upper Extremity Range of Motion Assessment Within Functional Limits OT Strength Upper Extremity Strength Assessment Within Functional Limits OT- Coordination Assessment Upper Extremity Finger to Nose Test Within Functional Limits Comments Coordination Comments TO further assess. OT-Muscle Tone Assessment Muscle Tone WNL Yes OT Sensation Assessment Comments Summary Comments Intact for light touch. M9 OT- IP Assessment and Plan Start: 05/01/21 12:21 Freq: Status: Active Protocol: Document 05/01/21 12:23 [facility] (Rec: 05/01/21 12:36 [facility] [id number]) OT Summary Assessment and Plan Potential Rehabilitation Potential Good Analytic Complexity at Evaluation Moderate Summary OT Impairments Coordination,Functional Cognition,Bathing Progress Towards Goals Slow Progress due to Cognition Assessment Summary Pt MOD complexity and main barrier is his expressive aphasia and impairment for executive functioning and problem solving skills. Pt would benefit from outpt [facility] and OT at this time. Goals Dressing Goal Independent Toileting Goal Independent Bathing Goal Independent Toilet Transfer Goal Independent Shower Transfer Goal Independent Days to Meet Goals 5 Frequency of Treatment Frequency Of Treatment Once a Day Treatment Plan OT Treatment Plan ADL Training,Functional Cognition Training,Patient/ Family Education,Discharge Planning Other Treatment Recommendations and Next shower Treatment Focus Discharge Recommendations OT Discharge Recommendations Home with 24/ Assist Available Other Discharge Recommendations outpt [facility]/OT Transportation Needs at Discharge Private Vehicle
--- NOTE | 2021-05-01 11:25 | PT.IIE ---
Current Diagnoses Cerebral infarction, unspecified (04/30/21) Medical History (Last Updated 05/01/21 @ 00:01 by HAILY Love) Diabetes type 2, uncontrolled Physical Therapy Inpatient Evaluation/Re-Eval M1 PT/OT-IP Prior Functional Status Start: 05/01/21 12:26 Freq: NEEDED Status: Active Protocol: Document 05/01/21 11:25 AB (Rec: 05/01/21 12:36 AB [id number]) Medical Review Prior Functional Status Medical History Reviewed Yes Communication pt with difficulty comprehending and with word finding but able to follow instructions Mobility and Gait per nurse: pt lives with a roommate and is independent with mobility Social History Household Members friend(s) Living Arrangements House Additional Social History Comment unable to obtain home set up with pt due to comprehension and expressive issues M2 PT-IP Current Condition Start: 05/01/21 12:26 Freq: NEEDED Status: Active Protocol: Document 05/01/21 11:25 AB (Rec: 05/01/21 12:36 AB [id number]) Physical Therapy Current Condition Current Condition Evaluation Date 05/01/21 Treatment Diagnosis L CVA; difficulty in walking Onset Date 04/30/21 M3 PT-IP Subjective Start: 05/01/21 12:26 Freq: NEEDED Status: Active Protocol: Document 05/01/21 11:25 AB (Rec: 05/01/21 12:36 AB [id number]) Subjective Physical Therapy Visit Type Type Initial Evaluation Visit Start Time 11:25 Visit Stop Time 12:00 Total Visit Minutes 35 Number of ADDRESSOGRAPH OPERATOR Visits 0 M4 PT-IP Mobility and Gait Start: 05/01/21 12:26 Freq: NEEDED Status: Active Protocol: Document 05/01/21 11:25 AB (Rec: 05/01/21 12:36 AB [id number]) PT-Bed Mobility Assessment Supine to Sit Supine to Sit Independent Sit to Supine Sit to Supine Independent PT-Transfer Assessment Sit to and From Stand Sit to and from Stand Independent Equipment Transfer Assistive Device None,Gait Belt Orthotic/Prosthetic Devices or Brace: No Transfers Transfer Destination Bed,Chair Transfer Technique Stand Step Pivot Transfer Ability Level of Assist Independent Comments Mobility Comments attempted to obtain PLOF and home set up but pt unable to comprehend questions despite strategies applied. pt agreed to move with PT. ambulated in room without AD SBA. antalgi gait but without LOB. completed bed mobility independent. pt agreed to walk in the hallway and completed ~ 150 ft without AD SBA. completed up/down stairs using B rails SBA and then repeated again without rails SBA. pt ambulated back to his room SBA without AD. sat on chair. positioned. call light and table placed within reach. Gait Assessment Gait Gait Assistance Required: Standby Assistance Distance (Feet) 250 Able to Maintain Weight Bearing Status Yes During Gait Assistive Devices Assistive Device None,Gait Belt Orthotic/Prosthetic Devices or Brace: No Gait Deviations General Gait Pattern Antalgic Stair Climbing Assessment Evaluation Level of Assist On Stairs Standby Assistance Devices Stair Climbing Assistive Devices None,Left Railing,Right Railing Technique/Endurance Stair Climbing Direction Ascend and Descend Stair Climbing Technique Step to Step Number of Steps Climbed 3 Query Text: Stair Climbing Set # Repetitions (reps) 1 Comments Stair Climbing Comments pls refer to mobility section for details PT-Balance Assessment Sitting Balance and Reactions Static Sitting Balance Ability Normal Dynamic Sitting Balance Ability Normal Standing Balance and Reactions Static Standing Balance Ability Good Dynamic Standing Balance Ability Good Device Used without AD M5 PT-IP Objective Assessments Start: 05/01/21 12:26 Freq: NEEDED Status: Active Protocol: Document 05/01/21 11:25 AB (Rec: 05/01/21 12:36 AB [id number]) Orientation Orientation/Cognition Level of Alertness Alert Orientation Name Language Function Ability Expressive Aphasia,Receptive Aphasia,Word Finding Difficulties Gross Range of Motion Lower Extremity ROM Assessment Within Functional Limits Strength Lower Extremity Strength Assessment Within Functional Limits Coordination Assessment Gross Coordination Gross Coordination WNL Sensation Assessment Sensation Gross Sensation WNL Muscle Tone Muscle Tone WNL Yes M6 PT-IP Treatment Start: 05/01/21 12:26 Freq: NEEDED Status: Active Protocol: Document 05/01/21 11:25 AB (Rec: 05/01/21 12:36 AB [id number]) Physical Therapy Treatment Education Education Provided Safety M7 PT-IP Assessment and Plan Start: 05/01/21 12:26 Freq: NEEDED Status: Active Protocol: Document 05/01/21 11:25 AB (Rec: 05/01/21 12:36 AB [id number]) PT Summary Assessment and Plan Potential Rehabilitation Potential Good Status of Condition at Evaluation Stable Summary Impairments Pain,ROM,Strength,Balance, Coordination,Sensation,Tone, Cognition,Bed Mobility, Transfers,Gait,Activity Tolerance Assessment Summary PT eval completed. Pt is independent with bed mobility, SBA for transfers, ambulation and stair climbing without AD for safety . No further PT interventions indicated at this time. Pt has difficulty with comprehending and expressing words and will OT and MAKE UP OPERATOR to address issues. informed nurse that no further PT needs indicated at this time. Frequency of Treatment Frequency Of Treatment Discharge Recommendations To Nursing Amount of Assist Needed Standby Assistance Discharge Recommendations PT Discharge Recommendations Home with Assistance Transportation Needs at Discharge Private Vehicle
--- NOTE | 2021-05-01 11:43 | CM.DANOTE ---
Addendum entered by Yoko Carpenter R.N. 05/01/21 15:54: All disciplines completed with therapy, P.T, O.T, and Speech (who highly recommends inpatient rehab). Went ahead and faxed over to [facility], as well as Inpatient rehab at [facility]. Addendum entered by Yoko Carpenter R.N. 05/01/21 14:53: Spoke to patient, and mother, Helen was in the room. Speech Therapy is recommending inpatient acute rehab secondary to his cognition, and aphasia. Will be sending over [facility] and [facility] all of the therapy notes. Patient's mother has POA paperwork that she will be filling out with patient, but will need to get this notarized. Patient's mother indicated, he can't stay by himself, his friends work. Asked her if she can stay with patient, and she did not state that she could. Let her and patient know that other alternative is fdc, and patient's mother indicated, I won't let him go there, they'll just keep him. Attempted to explain to her that this would just be for rehab. Encouraged mother to come up with an alternative plan, should inpatient rehabs not accept patient, and if she does not want patient to go to a fdc facility, for explained that once patient is medically stable, he does not meet the criteria to stay in the hospital. Also, mentioned that patient will need transportation to [facility], for family is not allowed to transport. Patient's mother indicated, we don't have the money for that. [facility] does allow family members to transport. Will send information to Nirmala at [facility] as well as [facility] as well, as soon as speech notes are in. Original Note: DCP: Case received, EMR reviewed and met with patient. Introduced self and role. With patient's permission, was also able to obtain further information from his mother, Helen Aldana, regarding his baseline health and activity level prior to hospitalization. DCP assessment completed with information currently available. Patient is a 55 year old male who admitted yesterday afternoon to the care of the hospitalist team. PCP: Dr. Cuevas. Payer: confirmed: [facility] Medicare. Patient came to the hospital via private vehicle secondary to having difficulty speaking, and communicating. According to notes, symptoms had started Monday, and patient's mother, Helen, had encouraged patient to come to the hospital. Patient holds current diagnosis of large acute CVA. Met with patient in his room. He was sitting up in bed eating breakfast. He was able to answer some questions, briefly. This master planner had to ask questions a couple of times for patient to understand. He did give permission to contact his mother with further questions. Patient lives in [place] with room mates, and he is independent at his baseline. He does consume alcohol, according to notes, a few drinks a night, and is a smoker. He is on CIWA protocol. Discussed patient in team rounds, and hospitalist agrees that patient may benefit with acute inpatient rehab. He has not yet worked with the therapy team. [facility] Shar[facility], and she confirmed that they do have beds available, but want referral sent after all therapy notes are in. Let her know that [facility], so auth would need to be obtained. Will also send to [facility] as well. Spoke to Shant at [facility], and he indicated, they will have beds by Monday. Their fax number is: [phone]. As soon as therapy notes are in, will fax. P: DCP to continue to work on getting patient into inpatient rehab, [facility] and [facility], as soon as therapy notes. Yoko Carpenter RN/Sap Ppm Consultant Discharge Planning/Care Management CM Discharge Assessment Start: 05/01/21 11:41 Freq: Status: Active Protocol: Document 05/01/21 11:42 (Rec: 05/01/21 11:43 [id number]) Discharge Planning Assessment Assigned Carousel Operator Yoko Carpenter RN/Sap Ppm Consultant Advance Directives? No History Provided By Patient,Family Member,Medical Record Prior Living Arrangements House Household Members friend(s) Type of transporation used prior to Drives own vehicle admit Independent with ADL's Yes Is patient alert and oriented? Yes Caregiver for Another No Discharge Plan [facility] Facility Transportation Arrangement It depends upon if patient goes to skilled versus inpatient rehab. Referrals Initiated Other Additional Comment Will initiate [facility] and [facility] as soon as therapy notes are in. Whiteboard Updated in Patient Room with Yes name and ext. # of Carousel Operator Review Status In Process Next Review Type Continued Stay Review
[2021-05-01 12:00] VITALS: BP 142/82; PULSE 89; RESP 16; TEMP 36.6; O2SAT 99
--- NOTE | 2021-05-01 15:34 | ST.IPIE ---
Visit Care Team Role Provider Type Blayne Cuevas MD Primary Care Provider Non-Staff Specialty: Internal Medicine Address: [address] [place] [address], [id number] Email: Jessica Harrison DO Emergency Provider Physician Referring Provider Specialty: Emergency Medicine Address: [address] [place] [address], [address] Email: [email or web address] Duque MD Admit Provider Physician Attending Provider Specialty: Internal Medicine Address: [address] [place] [address], [address] Email: [email or web address] Current Diagnoses Cerebral infarction, unspecified (04/30/21) Past Medical History (Last Updated 05/01/21 @ 00:01 by HAILY Love) Diabetes type 2, uncontrolled (Medical) No history of previous surgery (Medical) ST IP Initial Evaluation Report MARKET RESEARCH COORDINATOR Adult Cognitive Linguistic Eval Start: 05/01/21 14:46 Freq: Status: Active Protocol: Document 05/01/21 14:47 LNK (Rec: 05/01/21 15:33 LNK [id number]) Adult Cognitive Linguistic Evaluation Session Time Visit Start Time 13:30 Visit Stop Time 14:30 Total Visit Minutes 60 Visit Information Visit Number [address] Bermeo Reason for Referral CVA Setting Assessment Location Acute Care Visit Type Note Type Initial evaluation Next Note Type Next Note Type Re-Evaluation Patient Information Identification Type Name,ID Card Medical History PER H&P: Alexander Sterling is a 55- year-old male who presented to the emergency department with his mother, Betty Joshi. Patient is unable to give me history due to having significant speech impairments . In the emergency department he was found to have a large left-sided parietal CVA. Per his mother she notice that he was not acting his normal self and did not seem to be making sense while speaking. The patient's mother has had a series of TIAs and was aware of what to look for in a person with a possible stroke. Head CT ordered in the emergency department indicated a moderate to large size hypodensity in the left temporal lobe and occipital lobe suspicious for late subacute infarct. MRI/MRA indicated moderate to large area of acute or subacute infarct involving the left temporoparietal lobe. Did not indicate any evidence of a bleed. 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 Pt smokes regularly and is reported to have 3-4 alcoholic drinks per day. Hearing Auditory History Pt appeared to hear within WFL in a quiet room Subjective Mental Status Alert,Responsive,Cooperative Assessment Oral Motor Examination Completed Yes Results Informal assessment indicated speech production WFL. No s/sx of dysarthria or apraxia. Pt is missing teeth. Mild asymmetry of the facial features observed on the left side with an eye droop. Informal Assessment Receptive Language Normal No: Inconsistent. Appears to understand, but unknown for sure Receptive Language Impairment(s) Following 1-step commands, Following 2-step commands, Reading comprehension Expressive Language Normal No Expressive Language Impairment(s) Imitation,Sentence closure/ completion,Confrontation naming,Divergent naming, Expression of basic wants/ needs,Expression of complex thoughts/ideas,Written expression Pragmatic Language Normal Yes Speech Normal Yes: speech sound production WNL Cognition Normal Unknown Findings/Results Language Function Moderately-severely impaired Cognitive Function Mildly impaired Findings Pt presented with moderate to severe receptive-expressive aphasia. Pt produced a fluent jargon speech pattern with perseveration of words and phrases unrelated to task/ activity. Intonation was appropriate. Pt unable to follow single step directives with verbal cues, but could imitate visual actions (i.e., clapping hands, touching nose) . He was unable to name items in the room or items in pictures. He could not describe pictures (Cookie Theft Picture). Pt was unable to verbally imitate words or phrases and was unable to answer yes/no questions. However, he appeared to follow a conversation between this MARKET RESEARCH COORDINATOR and his mother. He was able to look at an item and identify it by pointing to the correct written word out of a choice of 3 words @ 5/5x. At one point he was able to converse with this MARKET RESEARCH COORDINATOR in a relatively normal conversation , albeit with some circumlocution and paraphasias , for 3-4 minutes. His communicative intent was clear . He demonstrated awareness of his difficulty and would get upset and frustrated. He could identify his errors (that's not right), but he was unable to repair the errors. Cognitive Communication Deficits Self-awareness of Cognitive- Situational awareness ( Communication Deficits recognition of problem in context;in real time) Impact on Functioning Activity Limits/Particip.Rest. Mild: General Tasks and Demands Household Tasks Sev: Interpersonal Interactions Community Safety Risks Mod: Being Left Alone at Home Managing Medication Sev: Reacting to Emergency Traveling Alone in Community Prognosis Prognosis Good Based on Cognitive status,Family support,Time since onset Plan of Care Speech-Language Treatment Yes Frequency 1-2x/day while inpatient Patient/Caregiver Education Described results of evaluation,Patient expressed understanding of evaluation, Patient expressed agreement with goals and treatment plans ,Family/caregivers expressed understanding of evaluation, Family/caregivers expressed agreement with goals and treatment plan Short Term Goals Pt will be able to state his name and age 2/3 opportunites Pt will identify and name 3 common objects in his room Pt and family education re: communication after a stroke Discharge Recommendations half-way facility, Inpatient rehab facility,Home with Home Health,Outpatient therapy
[2021-05-01 17:37] LABS: Appearance Urine UA CLEAR; Bilirubin Urine UA NEGATIVE (NEGATIVE); Color Urine UA YELLOW; Glucose Urine UA 1+ g/dL (Negative); Ketones Urine UA 1+ (NEGATIVE); Leukocyte Esterase Urine UA NEGATIVE (NEGATIVE); Nitrite Urine UA NEGATIVE (Negative); Occult Blood Urine UA NEGATIVE (Negative); Protein Urine UA NEGATIVE (Negative); Urobilinogen Urine UA 0.2 E.U./dL (0.2); pH Urine UA 6.5 (4.5-8.0)
[2021-05-01 17:50] LABS: Bacteria Urine None Seen; Culture Indicated Urine Cult Not Indicated; RBC Urine 1-5/HPF (0-5/HPF); WBC Urine 0-1/HPF (0-5/HPF)
[2021-05-01 20:38] VITALS: BP 180/97; PULSE 75; RESP 18; TEMP 36.3; O2SAT 100
[2021-05-01] MEDS: ATORVASTATIN 20 MG TABLET 80 MG PO (20:52)
[2021-05-01] MEDS: INSULIN GLARGINE 100 UNIT/ML 3ML PEN 15 UNIT SUBCUT (20:53)
[2021-05-01 23:50] VITALS: BP 174/95; PULSE 81; RESP 17; TEMP 36.2; O2SAT 100
--- NOTE | 2021-05-02 05:33 | PC.NURSE ---
Pt has been in and out of bed multiple times tonight. He even slept in the recliner for like 1 hour. NIH of 10, pt still having word salad and incoherent speech. Not answering questions appropriately. pt does follow command. Bed alarm in place for safety precautions. [place] 1 and seizure precautions maintained.
[2021-05-02 06:06] VITALS: BP 155/86; PULSE 76; RESP 18; TEMP 36.2; O2SAT 97
[2021-05-02 06:29] LABS: Add Manual Diff / Slide Review NO; Basophils Absolute Auto 0 /uL (0-100); Basophils Percent Auto 0.5 % (0-2); Eosinophils Absolute Auto 200 /uL (0-450); Eosinophils Percent Auto 2.9 % (2-4); Hematocrit 40.1 % (41-53); Hemoglobin 14.2 g/dL (13.5-17.5); Lymphocytes Absolute Auto 2400 /uL (1100-4500); Lymphocytes Percent Auto 31.7 % (25-40); Mean Corpuscular HGB Conc 35.5 % (30-36); Mean Corpuscular Volume 90.1 fL (80-100); Monocytes Absolute Auto 800 /uL (0-900); Monocytes Percent Auto 9.9 % (3-14); Neutrophils Absolute Auto 4200 /uL (1500-7000); Platelet Count 191 X10^3/uL (150-400); Red Blood Cell Count 4.45 X10^6/uL (4.5-5.9); Red Cell Distribution Width 13.5 % (11.6-14.8); White Blood Cell Count 7.6 X10^3/uL (4.5-11.0)
[2021-05-02 06:32] LABS: Alanine Aminotransferase 33 IU/L (<50); Albumin 3.9 g/dL (3.5-5.0); Albumin Globulin Ratio 1.3 (1.0-2.8); Alkaline Phosphatase 58 U/L (38-126); Aspartate Aminotransferase 30 IU/L (17-59); BUN Creatinine Ratio 16.7 (6-22); Bilirubin Total 0.8 mg/dL (0.2-1.3); Bilirubin Unconjugated 0.7 mg/dL (0.0-1.1); Blood Urea Nitrogen 11 mg/dL (9-20); Calcium 9.4 mg/dL (8.4-10.2); Carbon Dioxide 30 mmol/L (22-32); Chloride 102 mmol/L (98-107); Estimated Glomerular Filt Rate > 60.0 mL/min (>60); Globulin 3.1 g/dL (1.7-4.1); Glucose 196 mg/dL (70-100); HEMOLYSIS < 15 (0-50); Magnesium 2.1 mg/dL (1.6-2.3); Potassium 3.8 mmol/L (3.4-5.1); Sodium 138 mmol/L (137-145)
[2021-05-02] MEDS: INSULIN LISPRO 100 UNIT/ML 3ML VIAL SUBCUT ×4 (07:54→20:26)
[2021-05-02] MEDS: ENOXAPARIN 40 MG/0.4 ML SYRINGE SUBCUT (08:00)
[2021-05-02] MEDS: chlordiazePOXIDE 10 MG CAPSULE PO ×3 (08:00→20:29)
[2021-05-02] MEDS: ASPIRIN EC 81 MG TABLET PO (08:00)
[2021-05-02] MEDS: NICOTINE 14 PATCH 14 MG TOP (08:01)
[2021-05-02] MEDS: THIAMINE 100 MG TABLET PO (08:01)
[2021-05-02] MEDS: FOLIC ACID 1 MG TABLET PO (08:01)
[2021-05-02] MEDS: MULTIVITAMIN 1 TABLET 1 TAB PO (08:01)
--- NOTE | 2021-05-02 08:07 | P.PN_ITS ---
Subjective Subjective Interval history: Patient reports feeling well this morning. He denies acute complaints. He states that he worked well with PT/OT and speech yesterday. Exam Vital Signs (past 8 hours): - 05/02/21 06:06 Temperature 97.1 F L Pulse Rate 76 Respiratory Rate 18 Blood Pressure 155/86 H Pulse Oximetry 97 Oxygen Delivery Method Room Air Oxygen Flow Rate 0 Narrative Exam Narrative: Const Other: Patient sitting up in bed comfortably upon my entering the room, eating breakfast, and in no apparent acute distress Eyes Other: No scleral icterus appreciated. Neck Other: No carotid bruits appreciated. Resp Other: Clear to auscultation bilaterally. Cardio Other: Regular rate and rhythm. S1 and S2 heart sounds auscultated, with no extra heart sounds or murmurs appreciated. GI Other: Soft, non-distended, non-tender, bowel sounds present. Neuro Other: CN II-XII intact, with no focal motor neurological deficits appreciated. Expressive aphasia appreciated. Objective Labs Result Diagrams: 05/02/21 05:55 05/02/21 05:55 Labs: Laboratory Results - last 24 hr 05/01/21 05/02/21 05/02/21 16:04 05:55 05:55 WBC 7.6 RBC 4.45 L Hgb 14.2 Hct 40.1 L MCV 90.1 MCH 32.0 MCHC 35.5 RDW 13.5 Plt Count 191 Neut % (Auto) 55.0 Lymph % (Auto) 31.7 [place] % (Auto) 9.9 Eos % (Auto) 2.9 Baso % (Auto) 0.5 Neut # (Auto) 4200 Lymph # (Auto) 2400 [place] # (Auto) 800 Eos # (Auto) 200 Baso # (Auto) 0 Sodium 138 Potassium 3.8 Chloride 102 Carbon Dioxide 30 BUN 11 Creatinine 0.66 Estimated GFR > 60.0 BUN/Creatinine Ratio 16.7 Glucose 196 H Calcium 9.4 Magnesium 2.1 Total Bilirubin 0.8 Conjugated Bilirubin 0.0 Unconjugated Bilirubin 0.7 AST 30 ALT 33 Alkaline Phosphatase 58 Total Protein 7.0 Albumin 3.9 Globulin 3.1 Albumin/Globulin Ratio 1.3 Urine Color Yellow Urine Appearance Clear Urine pH 6.5 Ur Specific [place] 1.010 Urine Protein Negative Urine Glucose (UA) 1+ H Urine Ketones 1+ H Urine Occult Blood Negative Urine Nitrate Negative Urine Bilirubin Negative Urine Urobilinogen 0.2 Ur Leukocyte Esterase Negative Urine RBC 1-5/hpf Urine WBC 0-1/hpf Urine Bacteria None seen Ur Culture Indicated? Cult not indicated [facility] Medical History (Updated 05/01/21 @ 00:01 by HAILY Love) Diabetes type 2, uncontrolled Surgical History (Updated 05/01/21 @ 00:01 by HAILY Love) No history of previous surgery Social History household members: friend(s) Smoking Status: Current every day smoker alcohol intake: current Assessment & Plan Assessment & Plan narrative: Alexander Sterling is admitted for an acute/subacute left parietal/temporal CVA. 1. Acute/subacute left parietal/temporal CVA * Cardiac telemetry * NIH score greater than 5 no. NIH scoring and neuro checks q 6 hours * Will start dual antiplatelet therapy with clopidogrel 75 mg p.o. daily and aspirin 81 mg p.o. daily * Complete Echo with bubble study? * PT/OT/ST evaluation, and recommend inpatient rehab 2. Hypertension, acute with an admission bp of 208/118, present on admission * Allow for permissive hypertension of 220/110 HR 60 to allow for brain perfu wale * Allow for permissive hypertension for brain profusion of a systolic of 220 and a diastolic of 105 * IV labetolol if his systolic exceeds 220 or diastolic greater than 105 * Will start lisinopril 20 mg daily today 3. History of polysubstance abuse and alcohol dependence * [facility] protocol * Start oral thiamine, folic acid and a multivitamin * He is started on po librium * Seizure precautions 4. Diabetes type 2, uncontrolled and present on admission * A1c is greater than 10 * Glargine subQ 15 mg at bedtime and low dose correctional scale 5. Coronary artery diseaae * Atorvastatin 80 mg po at bedtime 6. Tobacco dependence * He is written for a Nicoderm patch 14 mcg daily VTE Prophylaxis: Enoxaparin 40 mg once daily Time Spent With Patient Critical Care time: I spent a total of [] minutes of critical care time on this patient's care today; this time is exclusive of procedural time. Quality Stroke Contraindication Not Initiating IV-Tpa: Contraindicated (Outside of window) Onset of Symptoms Date: 05/05/21 Symptom Onset Unknown: Yes Rehab Services Assessed: Stroke rehabilitation
--- NOTE | 2021-05-02 09:29 | CM.DPC ---
Addendum entered by Yoko Carpenter R.N. 05/02/21 12:14: [facility] and stated, they don't think they can accept patient, does not have enough therapy needs. She indicated in the message, not sure if the insurance would auth him. [facility] is reviewing, and will need to follow up with Mj in the am. If not accepted, patient will most likely need to go home with either home health or outpatient therapy. According to hospitalist, patient's cognition is improving today. P: D[facility] to [facility] to see if they may be able to accept him. Other option is outpatient speech therapy. Yoko Carpenter RN/[employer] Terrain [employer] Racer Original Note: DCP Cont: Spoke to Nirmala at [facility], and stated that they did receive the paperwork, Dr. Gray is reviewing. She indicated that if they accept, she will work on insurance auth, which may not be until Monday. She will call back with an update. Spoke to Shant at [facility] and he indicated that he did receive the referral, he will be turning it over to Mj tomorrow, and will get in touch with this DC Loft Rigger. P: DCP to continue working on getting patient to Inpatient Rehab. He has an insurance that will need authorization before acceptance. [facility] is considering, as well as [facility]. The issue with [facility], is that family is not able to transport, will need to set up transportation. Yoko Carpenter RN/[employer]
[2021-05-02] MEDS: CLOPIDOGREL 75 MG TABLET PO (09:48)
[2021-05-02] MEDS: lisinopriL 20 MG TABLET PO (09:48)
[2021-05-02 11:08] VITALS: BP 142/86; PULSE 80; RESP 14; TEMP 36.6; O2SAT 99
[2021-05-02 16:46] VITALS: BP 144/82; PULSE 82; RESP 16; TEMP 36; O2SAT 97
[2021-05-02 20:00] VITALS: BP 141/78; PULSE 66; RESP 18; TEMP 36.3; O2SAT 99
[2021-05-02] MEDS: INSULIN GLARGINE 100 UNIT/ML 3ML PEN 26 UNIT SUBCUT (20:25)
[2021-05-02] MEDS: ATORVASTATIN 20 MG TABLET 80 MG PO (20:29)
[2021-05-02 23:29] VITALS: BP 106/64; PULSE 68; RESP 18; TEMP 36.1; O2SAT 96
[2021-05-03 04:30] VITALS: BP 130/67; PULSE 63; RESP 18; TEMP 36.6; O2SAT 97
[2021-05-03 05:03] LABS: Add Manual Diff / Slide Review NO; Basophils Absolute Auto 100 /uL (0-100); Basophils Percent Auto 0.7 % (0-2); Eosinophils Absolute Auto 200 /uL (0-450); Eosinophils Percent Auto 2.6 % (2-4); Hematocrit 40.3 % (41-53); Hemoglobin 14.1 g/dL (13.5-17.5); Lymphocytes Absolute Auto 2900 /uL (1100-4500); Lymphocytes Percent Auto 34.8 % (25-40); Mean Corpuscular HGB Conc 34.9 % (30-36); Mean Corpuscular Hemoglobin 31.7 PG (26-34); Mean Corpuscular Volume 90.7 fL (80-100); Monocytes Absolute Auto 800 /uL (0-900); Monocytes Percent Auto 9.7 % (3-14); Neutrophils Absolute Auto 4300 /uL (1500-7000); Neutrophils Percent Auto 52.2 % (50-75); Platelet Count 192 X10^3/uL (150-400); Red Blood Cell Count 4.44 X10^6/uL (4.5-5.9); Red Cell Distribution Width 13.4 % (11.6-14.8); White Blood Cell Count 8.2 X10^3/uL (4.5-11.0)
[2021-05-03 05:14] LABS: Alanine Aminotransferase 35 IU/L (<50); Albumin 3.9 g/dL (3.5-5.0); Albumin Globulin Ratio 1.3 (1.0-2.8); Alkaline Phosphatase 58 U/L (38-126); Aspartate Aminotransferase 26 IU/L (17-59); BUN Creatinine Ratio 17.6 (6-22); Bilirubin Total 0.8 mg/dL (0.2-1.3); Bilirubin Unconjugated 0.8 mg/dL (0.0-1.1); Blood Urea Nitrogen 13 mg/dL (9-20); Calcium 9.5 mg/dL (8.4-10.2); Carbon Dioxide 30 mmol/L (22-32); Chloride 104 mmol/L (98-107); Estimated Glomerular Filt Rate > 60.0 mL/min (>60); Glucose 173 mg/dL (70-100); HEMOLYSIS < 15 (0-50); Magnesium 2.1 mg/dL (1.6-2.3); Potassium 3.7 mmol/L (3.4-5.1); Sodium 138 mmol/L (137-145); Total Protein 6.9 g/dL (6.3-8.2)
[2021-05-03] MEDS: INSULIN LISPRO 100 UNIT/ML 3ML VIAL SUBCUT ×4 (09:14→22:03)
[2021-05-03] MEDS: CLOPIDOGREL 75 MG TABLET PO (09:22)
[2021-05-03] MEDS: ENOXAPARIN 40 MG/0.4 ML SYRINGE SUBCUT (09:22)
[2021-05-03] MEDS: FOLIC ACID 1 MG TABLET PO (09:22)
[2021-05-03] MEDS: MULTIVITAMIN 1 TABLET 1 TAB PO (09:22)
[2021-05-03] MEDS: ASPIRIN EC 81 MG TABLET PO (09:22)
[2021-05-03] MEDS: NICOTINE 14 PATCH 14 MG TOP (09:23)
[2021-05-03] MEDS: THIAMINE 100 MG TABLET PO (09:23)
[2021-05-03 10:20] VITALS: BP 117/85; PULSE 64; RESP 18; TEMP 36.3; O2SAT 100
[2021-05-03] MEDS: chlordiazePOXIDE 10 MG CAPSULE PO ×3 (10:53→21:58)
[2021-05-03 12:24] VITALS: BP 132/72; PULSE 70; RESP 18; TEMP 36.4; O2SAT 96
--- NOTE | 2021-05-03 12:48 | CM.DPC ---
DCP Discharge Home Per MD, pt medically stable to d/c home today with ongoing need for ST and ST recommendation is outpt ST rather than HH. SW called pt's mother as pt has aphasia and difficult to communicate with due to CVA and mother will be bedside around lunchtime. Per [facility] yesterday and also Prov [facility] admissions [facility] today, pt only meets criteria for one discipline and therefore insurance will not cover and pt does not meet their criteria. Pt also more cognitive/speech/retirement and would not meet criteria for SNF auth through insurance. SW met bedside with pt and mother and had lengthy discussion with them regarding medically stable to d/c today and not meeting criteria for SNF or inpt rehab. mother acknowledges understanding and discussed plan of mother to assist and roommate available at night for assist and outpt ST. SW provided local outpt ST options and also provided [employer] and [facility] for their TSOA program and contact to see if other resources available to assist pt in the community. Mother appreciative. PAULA updated MD and RN. Plan: Patient to d/c home today via mother POV and outpt ST resources and [employer] packet. CRISTINA Mera
--- NOTE | 2021-05-03 13:14 | ST.IPTN ---
Visit Care Team Role Provider Type Blayne Cuevas MD Primary Care Provider Non-Staff Address: [address] [place] [address], [address] Jessica Harrison DO Emergency Provider Physician Referring Provider Address: [address] [place] [address], [address] Tiana Duque MD Admit Provider Physician Attending Provider Address: [address] [place] [address], [id number] REGRINDER Treatment Note REGRINDER Treatment Note Start: 05/01/21 14:46 Freq: Status: Active Protocol: Document 05/03/21 12:45 LNK (Rec: 05/03/21 13:08 LNK [id number]) Speech Pathology Treatment Note Session Time Visit Start Time 09:00 Visit Stop Time 09:25 Total Visit Minutes 25 Setting Treatment Setting Acute Care Visit Type Note Type Treatment Note General Information General Information PER H&P: Alexander Sterling is a 55- year-old male who presented to the emergency department with his mother, Betty Joshi. Patient is unable to give me history due to having significant speech impairments . In the emergency department he was found to have a large left-sided parietal CVA. Per his mother she notice that he was not acting his normal self and did not seem to be making sense while speaking. The patient's mother has had a series of TIAs and was aware of what to look for in a person with a possible stroke. Head CT ordered in the emergency department indicated a moderate to large size hypodensity in the left temporal lobe and occipital lobe suspicious for late subacute infarct. MRI/MRA indicated moderate to large area of acute or subacute infarct involving the left temporoparietal lobe. Did not indicate any evidence of a bleed. 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 Pt smokes regularly and is reported to have 3-4 alcoholic drinks per day. [ E Subjective Identification Type Name,ID Wristband Observations/Patient Presentation Pt was up in bedside chair eating breakfast. Chief Complaint(s) Speech,Language,Cognitive Patient Knowledge/Awareness of REGRINDER Role Fair in Treatment Parent/Caretake Knowledge/Awareness of Good REGRINDER Role in Treatment Objective Short Term Goals Pt will be able to state his name and age 2/3 opportunites Pt will identify and name 3 common objects in his room Pt and family education re: communication after a stroke Pt will follow 1 -2 step commands without gesture or eye point cues. Treatment Activities Pt agreed to therapy. Pt appears to have some automatic speech (i.e., Hi, I dont't know, How are you?, etc) These are well-established sentences in the pt's motor memory and with common phrases, etc. Trial direction -following with verbal cues ( no gesture or eye point) to point up, or touch your nose . Pt was unable to comply (0 /4 attempts. Added gesture cues and the pt was able to follow directions at at 4/4. Question pt's receptive language in that when he is spoken to, he responds with jargon language in question intonation, followed by Is that right? (automatic speech )as if asking me did you say that?. Pt unable to locate the clock, locate his phone or the tv. He was unable to expressively produce his name, count 1-5 name items in the room. Expressively he uses jargon language with appropriate intonation. He perseverates the same phrase or words when attempting to communicate. He is unable to identify pictures of common items. Assessment Patient Response to Treatment Poor Rehab Potential Good Impairments Identified Cognitive-Linguistic Skills, Expressive Language,Receptive Language Additional Impairments Identified Question pre-event cognition secondary to alcohol abuse. Patient/Caregiver Understanding Poor Plan Comment 1-2x/day while inpatient Therapy Recommendations Continue with Current Program
[2021-05-03 17:12] VITALS: BP 133/77; PULSE 62; RESP 18; TEMP 36.4; O2SAT 96
--- NOTE | 2021-05-03 17:37 | P.PN_ITS ---
Subjective Subjective Interval history: Patient continues to have difficulty with receptive and expressive aphasia. He does not appear to have any motor deficits, ambulating freely, with no difficulty in fine motor tasks either. Unfortunately, patient is not qualified for inpatient rehab given that he has no physical debility. Case management is working with the patient's mother to arrange for outpatient speech rehab. The patient's mother is also asking if home health aides can be arranged. Exam Vital Signs (past 8 hours): - 05/03/21 10:20 05/03/21 12:24 05/03/21 17:12 Temperature 97.3 F L 97.5 F L 97.5 F L Pulse Rate 64 70 62 Respiratory Rate 18 18 18 Blood Pressure 117/85 132/72 133/77 Pulse Oximetry 100 96 96 Oxygen Delivery Method Room Air Oxygen Flow Rate 0 Narrative Exam Narrative: Const Other: Patient sitting up in bed comfortably upon my entering the room, eating breakfast, and in no apparent acute distress Eyes Other: No scleral icterus appreciated. Neck Other: No carotid bruits appreciated. Resp Other: Clear to auscultation bilaterally. Cardio Other: Regular rate and rhythm. S1 and S2 heart sounds auscultated, with no extra heart sounds or murmurs appreciated. GI Other: Soft, non-distended, non-tender, bowel sounds present. Neuro Other: No focal motor neurological deficits appreciated. Expressive and receptive aphasia appreciated. Objective Labs Result Diagrams: 05/03/21 04:25 05/03/21 04:25 Labs: Laboratory Results - last 24 hr 05/03/21 05/03/21 04:25 04:25 WBC 8.2 RBC 4.44 L Hgb 14.1 Hct 40.3 L MCV 90.7 MCH 31.7 MCHC 34.9 RDW 13.4 Plt Count 192 Neut % (Auto) 52.2 Lymph % (Auto) 34.8 [place] % (Auto) 9.7 Eos % (Auto) 2.6 Baso % (Auto) 0.7 Neut # (Auto) 4300 Lymph # (Auto) 2900 [place] # (Auto) 800 Eos # (Auto) 200 Baso # (Auto) 100 Sodium 138 Potassium 3.7 Chloride 104 Carbon Dioxide 30 BUN 13 Creatinine 0.74 Estimated GFR > 60.0 BUN/Creatinine Ratio 17.6 Glucose 173 H Calcium 9.5 Magnesium 2.1 Total Bilirubin 0.8 Conjugated Bilirubin 0.0 Unconjugated Bilirubin 0.8 AST 26 ALT 35 Alkaline Phosphatase 58 Total Protein 6.9 Albumin 3.9 Globulin 3.0 Albumin/Globulin Ratio 1.3 [facility] Medical History (Updated 05/01/21 @ 00:01 by HAILY Love) Diabetes type 2, uncontrolled Surgical History (Updated 05/01/21 @ 00:01 by HAILY Love) No history of previous surgery Social History household members: friend(s) Smoking Status: Current every day smoker alcohol intake: current Assessment & Plan Assessment & Plan narrative: Alexander Sterling is admitted for an acute/subacute left parietal/temporal CVA. 1. Acute/subacute left parietal/temporal CVA * Cardiac telemetry * NIH score greater than 5 no. NIH scoring and neuro checks q 6 hours * Will start dual antiplatelet therapy with clopidogrel 75 mg p.o. daily and aspirin 81 mg p.o. daily * Complete Echo with bubble study unremarkable * PT/OT/ST evaluation, and recommend inpatient rehab, but patient unfortunately denied due to lack of physical impairment * Case management is attempting to secure outpatient speech therapy options with the patient's mother 2. Hypertension, acute with an admission bp of 208/118, present on admission * Allow for permissive hypertension of 220/110 HR 60 to allow for brain perfusion * Allow for permissive hypertension for brain profusion of a systolic of 220 and a diastolic of 105 * IV labetolol if his systolic exceeds 220 or diastolic greater than 105 * Will start lisinopril 20 mg daily and uptitrate as necessary 3. History of polysubstance abuse and alcohol dependence * [facility] protocol * Start oral thiamine, folic acid and a multivitamin * He is started on po librium * Seizure precautions 4. Diabetes type 2, uncontrolled and present on admission * A1c is greater than 10 * Glargine subQ 15 mg at bedtime and low dose correctional scale 5. Coronary artery diseaae * Atorvastatin 80 mg po at bedtime 6. Tobacco dependence * He is written for a Nicoderm patch 14 mcg daily VTE Prophylaxis: Enoxaparin 40 mg once daily Time Spent With Patient Critical Care time: I spent a total of [] minutes of critical care time on this patient's care today; this time is exclusive of procedural time. Quality Stroke Contraindication Not Initiating IV-Tpa: Contraindicated (Outside of window) Onset of Symptoms Date: 05/05/21 Symptom Onset Unknown: Yes Rehab Services Assessed: Stroke rehabilitation
[2021-05-03 21:50] VITALS: BP 140/74; PULSE 105; RESP 12; TEMP 36.8; O2SAT 100
[2021-05-03] MEDS: ATORVASTATIN 20 MG TABLET 80 MG PO (21:58)
[2021-05-03] MEDS: INSULIN GLARGINE 100 UNIT/ML 3ML PEN 26 UNIT SUBCUT (21:59)
[2021-05-04 05:15] VITALS: BP 126/63; PULSE 62; RESP 16; TEMP 36.3; O2SAT 97
[2021-05-04 08:00] VITALS: BP 126/79; PULSE 63; RESP 16; TEMP 36.2; O2SAT 99
[2021-05-04] MEDS: INSULIN LISPRO 100 UNIT/ML 3ML VIAL SUBCUT ×2 (08:22→12:23)
[2021-05-04 08:31] VITALS: BP 126/79
[2021-05-04] MEDS: lisinopriL 20 MG TABLET PO (08:31)
[2021-05-04] MEDS: chlordiazePOXIDE 10 MG CAPSULE PO (08:31)
[2021-05-04] MEDS: ASPIRIN EC 81 MG TABLET PO (08:31)
[2021-05-04] MEDS: MULTIVITAMIN 1 TABLET 1 TAB PO (08:31)
[2021-05-04] MEDS: CLOPIDOGREL 75 MG TABLET PO (08:31)
[2021-05-04] MEDS: ENOXAPARIN 40 MG/0.4 ML SYRINGE SUBCUT (08:32)
[2021-05-04] MEDS: THIAMINE 100 MG TABLET PO (08:32)
[2021-05-04] MEDS: FOLIC ACID 1 MG TABLET PO (08:32)
[2021-05-04] MEDS: SODIUM CHLORIDE 0.9% FLUSH 10 ML IV (09:00)
--- NOTE | 2021-05-04 10:26 | P.PN_ITS ---
Subjective Subjective Interval history: The patient continues to struggle with receptive/expressive aphasia, making subjective history acquisition difficult. However, he is eating and drinking OK, is ambulating normally to go to the bathroom, shower, etc., and appears to be in good spirits. Case management is working on securing home health care for the patient. Exam Vital Signs (past 8 hours): - 05/04/21 05:15 05/04/21 08:00 05/04/21 08:31 Temperature 97.4 F L 97.2 F L Pulse Rate 62 63 Respiratory Rate 16 16 Blood Pressure 126/63 126/79 126/79 Pulse Oximetry 97 99 Oxygen Delivery Method Room Air Oxygen Flow Rate 0 Narrative Exam Narrative: Const Other: Patient sitting up in bed comfortably upon my entering the room, eating breakfast, and in no apparent acute distress Eyes Other: No scleral icterus appreciated Neck Other: No carotid bruits appreciated Resp Other: Clear to auscultation bilaterally Cardio Other: Regular rate and rhythm. S1 and S2 heart sounds auscultated, with no extra heart sounds or murmurs appreciated GI Other: Soft, non-distended, non-tender, bowel sounds present Neuro Other: No focal motor neurological deficits appreciated, with expressive and receptive aphasia appreciated Objective Labs Result Diagrams: 05/03/21 04:25 05/03/21 04:25 [facility] Medical History (Updated 05/01/21 @ 00:01 by HAILY Love) Diabetes type 2, uncontrolled Surgical History (Updated 05/01/21 @ 00:01 by HAILY Love) No history of previous surgery Social History household members: friend(s) Smoking Status: Current every day smoker alcohol intake: current Assessment & Plan Assessment & Plan narrative: Alexander Sterling is admitted for an acute/subacute left parietal/temporal CVA. 1. Acute/subacute left parietal/temporal CVA * Cardiac telemetry * NIH score greater than 5 no. NIH scoring and neuro checks q 6 hours * Will start dual antiplatelet therapy with clopidogrel 75 mg p.o. daily and aspirin 81 mg p.o. daily * Complete Echo with bubble study unremarkable * PT/OT/ST evaluation, and recommend inpatient rehab, but patient unfortunately denied due to lack of physical impairment * Case management is attempting to secure outpatient speech therapy options with the patient's mother, along with home health aid 2. Hypertension, acute with an admission bp of 208/118, present on admission * IV labetolol if his systolic exceeds 220 or diastolic greater than 105 * Will start lisinopril 20 mg daily and uptitrate as necessary 3. History of polysubstance abuse and alcohol dependence * [facility] protocol * Start oral thiamine, folic acid and a multivitamin * He is started on po librium * Seizure precautions 4. Diabetes type 2, uncontrolled and present on admission * A1c is greater than 10 * Glargine subQ 15 mg at bedtime and low dose correctional scale 5. Coronary artery diseaae * Atorvastatin 80 mg po at bedtime 6. Tobacco dependence * He is written for a Nicoderm patch 14 mcg daily VTE Prophylaxis: Lovenox 40 mg once daily Time Spent With Patient Critical Care time: I spent a total of [] minutes of critical care time on this patient's care today; this time is exclusive of procedural time. Quality Stroke Contraindication Not Initiating IV-Tpa: Contraindicated (Outside of window) Onset of Symptoms Date: 05/05/21 Symptom Onset Unknown: Yes Rehab Services Assessed: Stroke rehabilitation
--- NOTE | 2021-05-04 11:13 | ST.IPTN ---
Visit Care Team Role Provider Type Blayne Cuevas MD Primary Care Provider Non-Staff Address: [address] [place] [address], [id number] Jessica Harrison DO Emergency Provider Physician Referring Provider Address: [address] [place] [address], [id number] Tiana Duque MD Admit Provider Physician Attending Provider Address: [address] [place] [address], [id number] [employer] Treatment Note [employer] Treatment Note Start: 05/01/21 14:46 Freq: Status: Active Protocol: Document 05/04/21 10:31 LNK (Rec: 05/04/21 11:09 [id number]) Speech Pathology Treatment Note Session Time Visit Start Time 09:30 Visit Stop Time 10:00 Total Visit Minutes 30 Setting Treatment Setting Acute Care Visit Type Note Type Re-Evaluation General Information General Information PER H&P: Alexander Sterling is a 55- year-old male who presented to the emergency department with his mother, Betty Joshi. Patient is unable to give me history due to having significant speech impairments . In the emergency department he was found to have a large left-sided parietal CVA. Per his mother she notice that he was not acting his normal self and did not seem to be making sense while speaking. The patient's mother has had a series of TIAs and was aware of what to look for in a person with a possible stroke. Head CT ordered in the emergency department indicated a moderate to large size hypodensity in the left temporal lobe and occipital lobe suspicious for late subacute infarct. MRI/MRA indicated moderate to large area of acute or subacute infarct involving the left temporoparietal lobe. Did not indicate any evidence of a bleed. 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 Pt smokes regularly and is reported to have 3-4 alcoholic drinks per day. [ E Subjective Identification Type Name,ID Wristband Observations/Patient Presentation Pt was up in bedside chair Chief Complaint(s) Speech,Language,Cognitive Patient Knowledge/Awareness of [employer]KER Role Fair in Treatment Parent/Caretake Knowledge/Awareness of Good [employer]KER Role in Treatment Objective Short Term Goals Pt will be able to state his name and age 2/3 opportunities Pt will identify and name 3 common objects in his room Pt and family education re: communication after a stroke Pt will follow 1 -2 step commands without gesture or eye point cues. Treatment Activities Pt greeted this BASS MECHANISM MAKER and another BASS MECHANISM MAKER and we entered the room. Trial with single step directive. Alexander was able to touch his nose x1 with a directive and no gestural cue. When asked to touch his ear, he pointed to his nose. Pt was unable to state his name or recognize it in written form. He was not able to point to 3 common items in his room and could not identify the picture of the toilet or the words yes/no. Added gesture cues and hand over hand assistance, but he was unable to perform task. Throughout the session, Alexander continued to produce perseverative phrases not related to environment or tasks. His language consists of jargon with automatic speech segments. Pt is unable to understand most of what is said to him. He is unable to recognize own errors when speaking. Assessment Patient Response to Treatment Poor Rehab Potential Good Impairments Identified Cognitive-Linguistic Skills, Expressive Language,Receptive Language Additional Impairments Identified Question pre-event cognition secondary to alcohol abuse. Assessment of Improvement There appears to be minimal changes in Alexander's communication skills. Patient/Caregiver Understanding Poor Plan Comment 1-2x/day while inpatient Therapy Recommendations Continue with Current Program
[2021-05-04 12:00] VITALS: BP 121/75; PULSE 68; RESP 17; TEMP 36.4; O2SAT 99
--- NOTE | 2021-05-04 12:00 | OT.IP.TRT ---
Current Diagnoses Cerebral infarction, unspecified (04/30/21) Occupational Therapy Treatment Note M2 OT-IP Current Condition Start: 05/01/21 12:21 Freq: Status: Active Protocol: Document 05/01/21 12:23 [facility] (Rec: 05/01/21 12:36 [facility] [id number]) Occupational Therapy Current Condition Current Condition Evaluation Date 05/01/21 Treatment Diagnosis Left parietal/temporal CVA Diagnosis Onset Date 04/30/21 M3 OT- IP Subjective and Pain Start: 05/01/21 12:21 Freq: Status: Active Protocol: Document 05/04/21 13:59 [facility] (Rec: 05/04/21 14:09 [facility] [id number]) OT- Subjective Occupational Therapy Visit Type Type Treatment Note Visit Start Time 10:15 Visit Stop Time 12:00 Total Visit Minutes 69 Notes Seen for split treatment and able to talk to his mother for the second part. Occupational Therapy Visit Comments Patient Comments Pt able to get some automatic speech out but for the most part unable to get the words out. Patient/Caregiver Goals Pt able to gesture that he wants to go home. OT Pain Assessment Pain When Pain Assessed At Rest Pain Present Pain Present Denied Pain M4 OT- IP ADL's Start: 05/01/21 12:21 Freq: Status: Active Protocol: Document 05/04/21 13:59 [facility] (Rec: 05/04/21 14:09 [facility] [id number]) OT ADL-Grooming General Evaluation Grooming Ability Independent . M6 OT- IP Functional Cognition Start: 05/01/21 12:21 Freq: Status: Active Protocol: Document 05/04/21 13:59 [facility] (Rec: 05/04/21 14:09 [facility] [id number]) Cognitive Factors Limiting Selfcare Function Cognitive Comments Cognitive Assessment Comments Pt scored 10 min and 30 seconds with MODA vc today for [place] making Part b and having more difficulty today . Pt's score continues to imply that pt has severe impairments for visual attention, task switching, speed of processing , mental flexibility and executive functioning. Today when stated in front on his mother, pt should not drive, pt agreed. M7 OT- IP Mobility and Balance Start: 05/01/21 12:21 Freq: Status: Active Protocol: Document 05/04/21 13:59 [facility] (Rec: 05/04/21 14:09 [facility] [id number]) OT-Transfer Assessment Sit to and From Stand Sit to and from Stand Independent Transfers Transfer Ability Independent Comments Mobility Comments Independent for mobility needs . OT- Balance Assessment Sitting Balance and Reactions Static Sitting Balance Ability Normal Dynamic Sitting Balance Ability Normal Standing Balance and Reactions Static Standing Balance Ability Normal Dynamic Standing Balance Ability Good M8 OT- IP Objective Assessments Start: 05/01/21 12:21 Freq: Status: Active Protocol: Document 05/01/21 12:23 [facility] (Rec: 05/01/21 12:36 [facility] [id number]) OT Gross Range of Motion Upper Extremity Range of Motion Assessment Within Functional Limits OT Strength Upper Extremity Strength Assessment Within Functional Limits OT- Coordination Assessment Upper Extremity Finger to Nose Test Within Functional Limits Comments Coordination Comments TO further assess. OT-Muscle Tone Assessment Muscle Tone WNL Yes OT Sensation Assessment Comments Summary Comments Intact for light touch. M9 OT- IP Assessment and Plan Start: 05/01/21 12:21 Freq: Status: Active Protocol: Document 05/04/21 13:59 [facility] (Rec: 05/04/21 14:09 [facility] [id number]) OT Summary Assessment and Plan Potential Rehabilitation Potential Good Analytic Complexity at Evaluation Moderate Summary OT Impairments Coordination,Functional Cognition,Bathing Progress Towards Goals Slow Progress due to Cognition Assessment Summary Pt continues to have receptive and expressive aphasia. Pt trying to use the air freshener on his armpits. After giving pt the anti deodorant, pt did not initially know how to use it and just squeezed it and had to be shown what to do. Pt also having issues in trying to use his phone. Pt would strongly benefit from 24/7 assist and home health to be able to do ADL and IADL needs in the home to see if hr is safe or capable to care for himself in his routine environment. Goals Dressing Goal Independent Toileting Goal Independent Bathing Goal Independent Toilet Transfer Goal Independent Shower Transfer Goal Independent Days to Meet Goals 4 Frequency of Treatment Frequency Of Treatment Once a Day Treatment Plan OT Treatment Plan ADL Training,Functional Cognition Training,Patient/ Family Education,Discharge Planning Discharge Recommendations OT Discharge Recommendations Home with 24/7 Assist Available,Home Health Other Discharge Recommendations home health OT and PHYSICIAN RELATIONS MANAGER Transportation Needs at Discharge Private Vehicle
--- NOTE | 2021-05-04 13:18 | P.DS_ITS ---
History of Present Illness History of Present Illness Chief complaint: Possible Stroke Monday Discharge Providers Provider Date of admission: 04/30/21 17:58 Discharge Date: 05/04/21 Primary care physician: Blayne Cuevas MD Consults: 04/30/21 19:32 Consult to Discharge Planning Routine Comment: Consult to Occupational Therapy Evaluate & Treat Comment: Physician Instructions: Evaluate and treat Consult to Physical Therapy Evaluate & Treat Comment: Physician Instructions: Evaluate and Treat Consult to Speech Therapy Evaluate & Treat Comment: Physician Instructions: Evaluate and treat 05/01/21 10:00 Consult to Dietitian, Adult Routine Comment: Reason For Exam: diabetic dietary teaching Discharge provider: Herlinda Giraldo MD Summary Hospital Course Discharge Diagnosis: 1. Acute/subacute left parietal/temporal CVA 2. Hypertension 3. History of polysubstance abuse and alcohol dependence 4. Diabetes type 2, uncontrolled and present on admission 5. Coronary artery diseaae 6. Tobacco dependence Hospital Course: 55yo male with a hx of extensive EtOH use, uncontrolled insulin-dependent DM II and hypertension that presented with an acute/subactue left temporal/parietal ischemic infarct that was outside of intervention window. Patient was maintained on aspirin, Plavix, atorvastatin, lisinopril and tolerated all medications well. As a result of his CVA, he now has global aphasia as a residual deficit. Due to not having any physical deficits, patient did not qualify for inpatient rehab. T herefore, arrangements were made to have home health visit the patient, to have outpatient speech therapy, etc. The patient's mother is involved in his care, and understands the plan, especially regarding dual antiplatelet therapy duration, and all questions were answered to her apparent satisfaction. Exam Vital Signs (past 8 hours): - 05/04/21 08:00 05/04/21 08:31 05/04/21 12:00 Temperature 97.2 F L 97.6 F Pulse Rate 63 68 Respiratory Rate 16 17 Blood Pressure 126/79 126/79 121/75 Pulse Oximetry 99 99 Oxygen Delivery Method Room Air Oxygen Flow Rate 0 Narrative Exam Narrative: Const Other: Patient sitting up in bed comfortably upon my entering the room, eating breakfast, and in no apparent acute distress Eyes Other: No scleral icterus appreciated Neck Other: No carotid bruits appreciated Resp Other: Clear to auscultation bilaterally Cardio Other: Regular rate and rhythm. S1 and S2 heart sounds auscultated, with no extra heart sounds or murmurs appreciated GI Other: Soft, non-distended, non-tender, bowel sounds present Neuro Other: No focal motor neurological deficits appreciated, with expressive and receptive aphasia appreciated Objective Labs Result Diagrams: 05/03/21 04:25 05/03/21 04:25 [facility] Medical History (Updated 05/01/21 @ 00:01 by HAILY Love) Diabetes type 2, uncontrolled Surgical History (Updated 05/01/21 @ 00:01 by HAILY Love) No history of previous surgery Social History household members: friend(s) Smoking Status: Current every day smoker alcohol intake: current Discharge Assessment & Plan Assessment and Plan Assessment: Alexander Sterling is admitted for an acute/subacute left parietal/temporal ischemic CVA with residual global aphasia 1. Acute/subacute left parietal/temporal CVA * Will start dual antiplatelet therapy with clopidogrel 75 mg p.o. daily and aspirin 81 mg p.o. daily * Patient's mother was informed to continue patient on aspirin 81 mg daily indefinitely, and to stop Plavix 75 mg daily after 86 days (to complete 90 days of dual-antiplatelet therapy) * PT/OT/ST evaluation, and recommend inpatient rehab, but patient unfortunately denied due to lack of physical impairment * Home health aid arrangments being made for patient 2. Hypertension * Will start lisinopril 20 mg daily and uptitrate as necessary 3. History of polysubstance abuse and alcohol dependence * No evidence of EtOH withdrawal inpatient * Counseling provided 4. Diabetes type 2, uncontrolled and present on admission * A1c is greater than 10 * Lantus 26 units at bedtime to continue 5. Coronary artery diseaae * Atorvastatin 80 mg po at bedtime 6. Tobacco dependence * Counseling provided Discharge Plan Discharge Plan Patient Disposition: Home Discharge orders & Medications Prescriptions: New atorvastatin [Lipitor] 20 mg Tablet 80 mg PO BEDTIME 90 Days Qty: 90 4RF lisinopril 20 mg Tablet 20 mg PO DAILY 90 Days Qty: 90 0RF clopidogrel 75 mg Tablet 75 mg PO DAILY 86 Days Qty: 86 0RF Rx Instructions: Dual antiplatelet therapy for only 90 days. After 90 days, can STOP Plavix, and continue ONLY on aspirin 81 mg daily. aspirin 81 mg Tablet,Delayed Release (Dr/Ec) 81 mg PO DAILY 90 Days Qty: 90 4RF Lantus Solostar U-100 Insulin 100 unit/mL (3 mL) Insulin Pen 26 unit SUBCUT 2100 90 Days Qty: 23.4 4RF Follow up/Referrals: Blayne Cuevas MD [Primary Care Provider] - Visit Report/Discharge Packet Instructions: Clopidogrel (Alternative Therapy), Insulin (Alternative Therapy), DI for Stroke-Ischemic, How to Use an Insulin Pen Discharge Data Primary Care Provider: Blayne Cuevas Quality Stroke Contraindication Not Initiating IV-Tpa: Contraindicated (Outside of window) Onset of Symptoms Date: 05/05/21 Symptom Onset Unknown: Yes Rehab Services Assessed: Stroke rehabilitation
--- NOTE | 2021-05-04 14:06 | CM.DPC ---
DCP Cont: Discussed patient during team rounds, as he was not discharged yesterday. Hospitalist had asked if care management was setting up outpatient speech therapy. Let him know that patient's mother was given several resources to his mother, such as senior center, and outpatient speech, but none available in [place]. Due to patient's decreased cognition and not being able to drive, decided to order home health. Had hospitalist sign face to face. Met with patient and his mother, Helen. Went over home health, brought in two brochures, [facility]. Patient and mother have no preferences upon agencies, since he has never had this service before. Patient was noting some frustration while speaking to his mother due to his having difficulty verbalizing with what he is trying to say. Mother lives in subsidized housing in [place]. She stated that she has an extra bed for patient to stay with her, but he wants to stay in his own apartment. Mother is working on POA paperwork. They will need to take to a notary for signature, since one is not available here at the hospital. Mother stated that she can check on patient daily. Terry Mackey.T, was also in the room with some concerns of patient being by himself at times. Patient does have a room mate that gets off work at about 5:30, according to patient's mother. Patient is mobile, can use commode, but has difficulty with speaking, and needs some cueing. It is noted that [facility] is on the calender for this week. Called Sharon at [facility]. Confirmed that she is pretty sure that they take his [facility] insurance. She stated, she may be able to have P.T. out to the home by tomorrow. Gave her a history on patient, and that patient's mother, Helen, will be primary contact, which is on face sheet. Faxed over face sheet, face to face (signed by hospitalist). orders, H&P, P.T, Speech, and O.T. notes, and today's progress note (no DC Summary available as of yet), over to [facility]. Gave patient's mother, Helen, the [facility] Brochure letting her know that [facility] should be contacting her for possible visit tomorrow for patient.She was concerned if insurance covers this, and let her know that home health works on obtaining authorization. P: Patient is discharging home with [facility] services. Ordered P.T., O.T, and speech therapy. Yoko Carpenter RN/Recovery Assistant
--- NOTE | 2021-05-04 14:19 | OT.IPNOTE ---
Able to talk to nursing as pt just left and unable to talk to the pt and his mother. Nursing able to leave a message on his mother's cell phone regarding having pt carry a piece of paper to indicated and let people know that he has had a stroke and has difficulty to communicate at this time.
--- NOTE | 2021-05-04 14:26 | PC.NURSE ---
Patient very eager for discharge. Discharge instructions and home care handouts reviewed with patient and his mother Helen. His mother plans to assist him with his medications and insulin, prescriptions given to his mother. Patient (and patient's mother)instructed to check his blood sugars and monitor for signs of low blood sugar while taking insulin. Patient instructed and encouraged to stop smoking and stop drinking. Attempted to assist patient in scheduling a follow up appointment with his PCP but the office's center receptionist not answering, voicemail left for them to schedule, and patient's mother will follow up. Recommended having patient in this week for follow up. IV dc'd intact, and patient escorted out via wheelchair by [employer] with all his belonings. Prescriptions given to Helen.
== END 2021-05-04 14:05 | disposition home health service (06) | DRG 66 ==
LOC: ED 17:46 → AC 17:58
PROVIDERS: Nurse Practitioner Family; Psychiatry & Neurology Child & Adolescent Psychiatry; Admitting Provider Internal Medicine; Emergency Provider Emergency Medicine; PCP Internal Medicine; Referring Provider Emergency Medicine; Visit Provider Internal Medicine
DX: I63.512 Cerebral infarction due to unspecified occlusion or stenosis of left middle cerebral artery (principal); R47.01 Aphasia; E11.65 Type 2 diabetes mellitus with hyperglycemia; I25.10 Atherosclerotic heart disease of native coronary artery without angina pectoris; I10 Essential (primary) hypertension; F10.21 Alcohol dependence, in remission; F17.210 Nicotine dependence, cigarettes, uncomplicated; R29.705 NIHSS score 5; R29.710 NIHSS score 10; Z20.822 Contact with and (suspected) exposure to COVID-19
CPT/HCPCS: 36415; 70450; 70548; 70553; 71045; 80053; 80061; 80076; 80305; 81001; 82550; 82962; 83036; 83735; 84443; 84484; 85025; 87635; 92507; 93005; 93010; 93306; 96105; 97161; 97166; 97530; 97535; 99285; C9803; A9579; J1650; J1815

== ENCOUNTER 2021-10-05 14:00 | Emergency (ER) | payer MEDICARE, SELFPAY ==
[2021-10-05 14:12] VITALS: BP 112/63; PULSE 98; RESP 17; TEMP 36.6; O2SAT 99; BMI 28.1
--- NOTE | 2021-10-05 15:18 | DI.RAD.S_ITS ---
PROCEDURE: XR TOE RT MIN 2V INDICATIONS: redness/blister popped TECHNIQUE: 2 views of the left 1st toe(s) acquired. COMPARISON: None. FINDINGS: Bones: No fractures or dislocations. No suspicious bony lesions. Soft tissues: There is a soft tissue defect in the medial aspect of the 1st toe IMPRESSION: A soft tissue defect in the medial aspect of the 1st toe. No acute osseous abnormalities. Dictated by: Jeanine Christian M.D. on 10/05/2021 at 15:33 Approved by: Jeanine Christian M.D. on 10/05/2021 at 15:34
[2021-10-05] MEDS: CIPROFLOXACIN 250 MG TABLET 500 MG PO (18:34)
[2021-10-05] MEDS: DOXYCYCLINE HYCLATE 100 MG TABLET PO (18:34)
[2021-10-05 18:38] VITALS: BP 123/81; PULSE 90; RESP 18; O2SAT 99
--- NOTE | 2021-10-05 19:40 | ED.WOUNDLAC ---
HPI - Wound/Laceration <HAILY Crow - Last Filed: 10/05/21 19:46> General Chief Complaint: Wound/Laceration Stated Complaint: Infection in left big toe Time Seen by Provider: 10/05/21 18:12 Source: patient Mode of arrival: Ambulatory History of Present Illness HPI narrative: This is a 55-year-old male who presents to the emergency department with toe wound which patient states has been there for the last 3 days. He states it was a blister, there is no longer a blister, he states there was some purulence material which drain out of his toe. He has been using Epsom salts, he is a insulin-dependent diabetic, history of CVA, hypertension, and denies having a greenhouse or nursery transplanter or ever having 1. Patient has a history of diabetic ulcer on his foot in the past, states it took a long time to heal. Patient denies any fevers, fatigue, weakness, higher blood sugars than usual, nausea, vomiting, chills, or other symptom currently. Related Data Previous Rx's Medication Instructions Recorded aspirin 81 mg tablet,delayed 81 mg PO DAILY 90 Days #90 tab 05/04/21 release atorvastatin 20 mg tablet (Lipitor) 80 mg PO BEDTIME 90 Days #90 tab 05/04/21 insulin glargine 100 unit/mL (3 26 unit (0.26 mL) SUBCUT 2100 90 05/04/21 mL) subcutaneous pen (Lantus Days #23.4 ml Solostar U-100 Insulin) ciprofloxacin HCl 500 mg tablet 500 mg PO BID 7 Days #14 tab 10/05/21 doxycycline hyclate 100 mg capsule 100 mg PO BID 7 Days #14 cap 10/05/21 Allergies Allergy/AdvReac Type Severity Reaction Status Date / Time No Known Drug Allergies Allergy Verified 10/05/21 14:15 Review of Systems <HAILY Crow - Last Filed: 10/05/21 19:46> Review of Systems Narrative: General: denies fever, chills, malaise, sweats, fatigue Head/Neck: denies headache, neck pain, dizziness Eyes: denies visual changes, eye pain Cardio: denies chest pain, palpitations, edema Respiratory: denies dyspnea, cough, orthopnea GI: denies abdominal pain, nausea, vomiting, or diarrhea : denies dysuria, hematuria, urinary retention, frequency or incontinence MSK: denies joint pain, muscle weakness Skin: denies rash, itching, patient's right great toe has a open wound, he states it was a blister, the top covering of the blister is gone, he states is infected and is painful Neuro: denies numbness, tingling Patient History <HAILY Crow - Last Filed: 10/05/21 19:46> Medical History Diabetes type 2, uncontrolled Surgical History No history of previous surgery Social History household members: friend(s) Smoking Status: Current every day smoker alcohol intake: current Smoking Status: Current every day smoker tobacco type: cigarettes alcohol intake frequency: 3 or more drinks per day Alcohol type: hard liquor Substance Use Type: does not use Exam <HAILY Crow - Last Filed: 10/05/21 19:46> Narrative Exam Narrative: Independently reviewed vitals signs and nursing notes. General: cooperative, comfortable, in no acute distress, well developed and well groomed Head: atraumatic, symmetrical facial expressions Neck: supple, atraumatic, without lymphadenopathy. Eyes: pupils equal round and reactive, EOMI, conjunctiva normal Nose: nares patent, no rhinorrhea Mouth/Throat: uvula midline, moist mucus membranes Cardiovascular: regular rate and rhythm, no peripheral edema, warm extremities Respiratory: normal effort, able to speak in complete sentences, no audible wheezing, stridor, or rales. No retractions or tachypnea. GI: abdomen soft, nontender to palpation, nondistended, no masses, no exquisite tenderness with exam, without guarding or rebound. MSK: moves all extremities, ambulatory w/steady gait, neurovascularly intact, no weakness Skin: brisk capillary refill, no rash, right great toe has a 0.5 cm wound which appears like a diabetic ulcer, it is on the medial aspect of his toe, surrounding erythema, no streaking or erythema/edema in his foot, PT and DP pulses and his great foot are 2+, sensation is poor at baseline, he has good sensation along the lateral aspect of his great toe but not much sensation along the medial aspect, wound was cultured Neuro: normal speech and cognition, A&O x3, normal tone Psych: mental status is grossly normal, congruent mood, normal affect, pleasant and cooperative Initial Vital Signs Initial Vital Signs: Vital Signs Temperature 98 F 10/05/21 14:12 Pulse Rate 98 H 10/05/21 14:12 Respiratory Rate 17 10/05/21 14:12 Blood Pressure 112/63 10/05/21 14:12 Pulse Oximetry 99 10/05/21 14:12 <Jessica Harrison DO - Last Filed: 10/06/21 07:23> Initial Vital Signs Initial Vital Signs: Vital Signs Temperature 98 F 10/05/21 14:12 Pulse Rate 98 H 10/05/21 14:12 Respiratory Rate 17 10/05/21 14:12 Blood Pressure 112/63 10/05/21 14:12 Pulse Oximetry 99 10/05/21 14:12 Course <HAILY Crow - Last Filed: 10/05/21 19:46> Orders Ordered: Discontinued Medications Ciprofloxacin (Ciprofloxacin 250 Mg Tablet) 500 mg PO NOW ONE Stop: 10/05/21 18:27 Last Admin: 10/05/21 18:34 Dose: 500 mg Documented by: [email or web address] Doxycycline Hyclate (Doxycycline Hyclate 100 Mg Tablet) 100 mg PO NOW ONE Stop: 10/05/21 18:27 Last Admin: 10/05/21 18:34 Dose: 100 mg Documented by: [email or web address] Trimethoprim/Sulfamethoxazole (Trimeth/Sulfa 160/800 (Ds) Tablet) 1 tab PO NOW ONE Stop: 10/05/21 18:14 Last Admin: 10/05/21 18:31 Dose: Not Given Documented by: [email or web address] Vital Signs Vital signs: Vital Signs - 8 hr 10/05/21 14:12 10/05/21 18:38 Temperature 98 F Pulse Rate 98 H 90 Respiratory Rate 17 18 Blood Pressure 112/63 123/81 Pulse Oximetry 99 99 <Jessica Harrison DO - Last Filed: 10/06/21 07:23> Orders Ordered: Discontinued Medications Ciprofloxacin (Ciprofloxacin 250 Mg Tablet) 500 mg PO NOW ONE Stop: 10/05/21 18:27 Last Admin: 10/05/21 18:34 Dose: 500 mg Documented by: [email or web address] Doxycycline Hyclate (Doxycycline Hyclate 100 Mg Tablet) 100 mg PO NOW ONE Stop: 10/05/21 18:27 Last Admin: 10/05/21 18:34 Dose: 100 mg Documented by: [email or web address] Trimethoprim/Sulfamethoxazole (Trimeth/Sulfa 160/800 (Ds) Tablet) 1 tab PO NOW ONE Stop: 10/05/21 18:14 Last Admin: 10/05/21 18:31 Dose: Not Given Documented by: [email or web address] Vital Signs Vital signs: Vital Signs - 8 hr 10/05/21 14:12 10/05/21 18:38 Temperature 98 F Pulse Rate 98 H 90 Respiratory Rate 17 18 Blood Pressure 112/63 123/81 Pulse Oximetry 99 99 MDM - Wound/Laceration <Alise Gusman, [facility] - Last Filed: 10/05/21 19:46> Imaging Data Extremity x-ray #1: Radiologist's Impression: PROCEDURE:? XR TOE RT MIN 2V ? INDICATIONS:? redness/blister popped ? TECHNIQUE:? 2 views of the left 1st toe(s) acquired.? ? COMPARISON:? None. ? FINDINGS:? ? Bones:? No fractures or dislocations.? No suspicious bony lesions.? ? Soft tissues:? There is a soft tissue defect in the medial aspect of the 1st toe ? IMPRESSION:? A soft tissue defect in the medial aspect of the 1st toe.? No acute osseous abnormalities. ? ? Dictated by: Jeanine Christian M.D. on 10/05/2021 at 15:33 ? ? Approved by: Jeanine Christian M.D. on 10/05/2021 at 15:34 ? [facility] Narrative Medical decision making narrative: This is a 55-year-old insulin diabetic male with history of CVA, hypertension who presents to the emergency department with a diabetic ulcer to his right great toe on the medial aspect approximately 0.5 cm with surrounding erythema. Wound was cultured, this is pending, patient has not seen a greenhouse or nursery transplanter in the past, he states that he had a blister on this toe for approximately 3 days, it popped, purulent drainage came out, it feels better now but is open. Patient was given contact information for Rhianna Santana from Podiatry for follow-up. X-ray shows a soft tissue defect in the medial aspect of his 1st toe of his right foot, no acute osseous abnormalities. He was treated with coverage for MRSA and Pseudomonas with doxycycline and ciprofloxacin x7 days. He is encouraged to follow-up with his greenhouse or nursery transplanter or primary care provider within the next week to evaluate if he needs an extension of these antibiotics. Wound culture is pending, patient was given strict return precautions, encouraged to monitor his to the emergency department for any worsening of his condition. Patient is appropriate and amenable to discharge home. Vital signs are stable on repeat examination is unremarkable. Patient has been informed of results. Patient has been given strict return to ER precautions for any new or worsening symptoms. Patient understands to follow up closely with outpatient providers as instructed. Patient understands plan and agrees to discharge home. All questions and concerns answered at this time. Discharge Plan Departure Patient Disposition: Home Clinical Impression: Open toe wound Qualifiers: Encounter type: initial encounter Qualified Code(s): S91.109A - Unspecified open wound of unspecified toe(s) without damage to nail, initial encounter Diabetic toe ulcer Qualifiers: Diabetes mellitus type: type 2 Laterality: right Non-pressure ulcer stage: limited to breakdown of skin Qualified Code(s): E11.621 - Type 2 diabetes mellitus with foot ulcer Instructions: Diabetic Foot Ulcer Activity Restrictions/Additional Instructions: *You have been diagnosed with a diabetic foot ulcer. Please start taking ciprofloxacin and doxycycline twice a day for the next 7 days. Please take these medications at least 30 minutes apart with food and water to prevent stomach upset. Please take your insulin medications as normal and watch your blood sugars closely. Please call and make an appointment with Dr. Santana for Podiatry. Please follow-up with Dr. Maldonado if you are not able to get in with Dr. Santana. Please make an appointment to have your feet evaluated as soon as possible, please avoid any contact sports or strenuous activity while taking ciprofloxacin for the risk of tendon rupture. Thank you for trusting us with your care, please return for any fever, worsening of your symptoms, extremely high blood sugars, nausea vomiting, or worsening symptom. *What to do: *Please continue to take your regular medications as directed. [X ] New medication prescriptions sent to your pharmacy: [ [facility]] [ ] New medication written as a paper prescription [ ] No new medications given *Please follow up with your primary care provider in 2-3 days, call for an appointment. Let them know you were seen in the Emergency Department and that we asked that you be seen for follow-up. We will electronically transmit a record of today's note if your PCP is in our system *If you do not have a primary care provider please contact [phone] to establish care with one of the [facility] primary care providers. *Return to Emergency Department if you should have any new, worsening or concerning symptoms, such as [fever greater than 101F, chills, worsening pain, persistent vomiting or other bothersome symptoms] Prescriptions: New doxycycline hyclate 100 mg capsule 100 mg PO BID 7 Days Qty: 14 0RF ciprofloxacin HCl 500 mg tablet 500 mg PO BID 7 Days Qty: 14 0RF No Action atorvastatin [Lipitor] 20 mg Tablet 80 mg PO BEDTIME 90 Days Qty: 90 4RF aspirin 81 mg Tablet,Delayed Release (Dr/Ec) 81 mg PO DAILY 90 Days Qty: 90 4RF Lantus Solostar U-100 Insulin 100 unit/mL (3 mL) Insulin Pen 26 unit SUBCUT 2100 90 Days Qty: 23.4 4RF Referrals: Rhianna Santana DPM [Physician] - Casey Maldonado DO [Primary Care Provider] - <Jessica Harrison DO - Last Filed: 10/06/21 07:23> Cosign ED Attending Padmini Attestation: I was immediately available in the department for consultation. Documentation has been reviewed. I agree with assessment and plan.
== END 2021-10-05 18:39 | disposition home or self-care (01) ==
PROVIDERS: Emergency Provider Nurse Practitioner Critical Care Medicine; PCP Family Medicine
DX: S91.101A Unspecified open wound of right great toe without damage to nail, initial encounter (principal); E11.621 Type 2 diabetes mellitus with foot ulcer
CPT/HCPCS: 73660; 87070; 87075; 87077; 87147; 87186; 87205; 99283

== ENCOUNTER → 2021-11-26 10:24 | Outpatient (CLI) | payer MEDICARE, MEDICAID, SELFPAY | PROVIDERS: PCP Family Medicine; Referring Provider Podiatrist; Visit Provider Nurse Practitioner Family | DX: E11.621 Type 2 diabetes mellitus with foot ulcer (principal); L97.522 Non-pressure chronic ulcer of other part of left foot with fat layer exposed; L84 Corns and callosities; L73.9 Follicular disorder, unspecified; E11.40 Type 2 diabetes mellitus with diabetic neuropathy, unspecified; I69.320 Aphasia following cerebral infarction; Z72.0 Tobacco use; Z79.4 Long term (current) use of insulin | CPT/HCPCS: 11042; 99204; 99214 ==

== ENCOUNTER → 2021-12-03 14:09 | Outpatient (CLI) | payer MEDICARE, MEDICAID, SELFPAY | PROVIDERS: PCP Family Medicine; Referring Provider Family Medicine; Visit Provider Family Medicine | DX: E11.621 Type 2 diabetes mellitus with foot ulcer (principal); L97.522 Non-pressure chronic ulcer of other part of left foot with fat layer exposed; L84 Corns and callosities; L73.9 Follicular disorder, unspecified; E11.40 Type 2 diabetes mellitus with diabetic neuropathy, unspecified; I69.320 Aphasia following cerebral infarction | CPT/HCPCS: 97597 ==

== ENCOUNTER → 2021-12-10 13:37 | Outpatient (CLI) | payer MEDICARE, MEDICAID, SELFPAY | PROVIDERS: PCP Family Medicine; Referring Provider Family Medicine; Visit Provider Family Medicine | DX: E11.621 Type 2 diabetes mellitus with foot ulcer (principal); L97.522 Non-pressure chronic ulcer of other part of left foot with fat layer exposed; L84 Corns and callosities | CPT/HCPCS: 99213 ==

== ENCOUNTER → 2021-12-17 13:29 | Outpatient (CLI) | payer MEDICARE, MEDICAID, SELFPAY | PROVIDERS: PCP Family Medicine; Referring Provider Family Medicine; Visit Provider Family Medicine | DX: E11.621 Type 2 diabetes mellitus with foot ulcer (principal); L97.522 Non-pressure chronic ulcer of other part of left foot with fat layer exposed | CPT/HCPCS: 99213 ==

== ENCOUNTER → 2021-12-31 12:06 | Outpatient (CLI) | payer MEDICARE, MEDICAID, SELFPAY | PROVIDERS: PCP Family Medicine; Referring Provider Podiatrist; Visit Provider Family Medicine | DX: E11.621 Type 2 diabetes mellitus with foot ulcer (principal); L97.522 Non-pressure chronic ulcer of other part of left foot with fat layer exposed | CPT/HCPCS: 99213 ==

== ENCOUNTER → 2022-01-07 11:43 | Outpatient (CLI) | payer MEDICARE, MEDICAID, SELFPAY | PROVIDERS: PCP Pediatrics; Referring Provider Pediatrics; Visit Provider Nurse Practitioner Family | DX: E11.621 Type 2 diabetes mellitus with foot ulcer (principal); L97.522 Non-pressure chronic ulcer of other part of left foot with fat layer exposed; E11.40 Type 2 diabetes mellitus with diabetic neuropathy, unspecified; L73.9 Follicular disorder, unspecified | CPT/HCPCS: 11042; 99213 ==

== ENCOUNTER → 2022-01-14 15:03 | Outpatient (CLI) | payer MEDICARE, MEDICAID, SELFPAY | PROVIDERS: PCP Pediatrics; Referring Provider Podiatrist; Visit Provider Family Medicine | DX: L97.522 Non-pressure chronic ulcer of other part of left foot with fat layer exposed (principal); E11.42 Type 2 diabetes mellitus with diabetic polyneuropathy; F80.1 Expressive language disorder; I67.9 Cerebrovascular disease, unspecified | CPT/HCPCS: 11042; 99212 ==

== ENCOUNTER → 2022-01-21 12:43 | Outpatient (CLI) | payer MEDICARE, MEDICAID, SELFPAY | PROVIDERS: PCP Pediatrics; Referring Provider Podiatrist; Visit Provider Family Medicine | DX: E11.621 Type 2 diabetes mellitus with foot ulcer (principal); L97.522 Non-pressure chronic ulcer of other part of left foot with fat layer exposed | CPT/HCPCS: 99213 ==

== ENCOUNTER → 2022-01-28 14:13 | Outpatient (CLI) | payer MEDICARE, MEDICAID, SELFPAY | PROVIDERS: PCP Pediatrics; Referring Provider Pediatrics; Visit Provider Nurse Practitioner Family | DX: E11.621 Type 2 diabetes mellitus with foot ulcer (principal); L97.522 Non-pressure chronic ulcer of other part of left foot with fat layer exposed; E11.42 Type 2 diabetes mellitus with diabetic polyneuropathy; F80.1 Expressive language disorder; Z86.73 Personal history of transient ischemic attack (TIA), and cerebral infarction without residual deficits | CPT/HCPCS: 11042 ==

== ENCOUNTER → 2022-02-11 11:13 | Outpatient (CLI) | payer MEDICARE, MEDICAID, SELFPAY | PROVIDERS: PCP Pediatrics; Referring Provider Pediatrics; Visit Provider Nurse Practitioner Family | DX: E11.621 Type 2 diabetes mellitus with foot ulcer (principal); L97.522 Non-pressure chronic ulcer of other part of left foot with fat layer exposed; E11.40 Type 2 diabetes mellitus with diabetic neuropathy, unspecified | CPT/HCPCS: 11042; 99213 ==

== ENCOUNTER → 2022-02-18 12:59 | Outpatient (CLI) | payer MEDICARE, MEDICAID, SELFPAY | PROVIDERS: PCP Pediatrics; Visit Provider Nurse Practitioner Family | DX: L98.9 Disorder of the skin and subcutaneous tissue, unspecified (principal) | CPT/HCPCS: 87070; 87075; 87205 ==

== ENCOUNTER → 2022-02-25 11:44 | Outpatient (CLI) | payer MEDICARE, MEDICAID, SELFPAY | PROVIDERS: PCP Pediatrics; Referring Provider Pediatrics; Visit Provider Family Medicine | DX: E11.621 Type 2 diabetes mellitus with foot ulcer (principal); L97.522 Non-pressure chronic ulcer of other part of left foot with fat layer exposed; I10 Essential (primary) hypertension; E11.40 Type 2 diabetes mellitus with diabetic neuropathy, unspecified; Z86.73 Personal history of transient ischemic attack (TIA), and cerebral infarction without residual deficits; E11.65 Type 2 diabetes mellitus with hyperglycemia; M79.89 Other specified soft tissue disorders | CPT/HCPCS: 11042; 36415; 73660; 85025; 85651; 86140; 99213 ==

== ENCOUNTER → 2022-02-25 12:41 | Outpatient (CLI) | payer MEDICARE, MEDICAID, SELFPAY ==
--- NOTE | 2022-02-25 12:44 | DI.RAD.S_ITS ---
PROCEDURE: XR TOE LT MIN 2V INDICATIONS: Non-healing wound TECHNIQUE: 3 views of the left great toe(s) acquired. COMPARISON: None. FINDINGS: Bones: No acute fractures or dislocations. No suspicious bony lesions. No osseous erosions identified. No periosteal reaction. Soft tissues: No suspicious soft tissue densities. Soft tissue swelling of the left great toe. No evidence for soft tissue gas. No radiopaque soft tissue foreign bodies. IMPRESSION: Soft tissue swelling the left great toe without underlying osseous abnormalities. If there is clinical concern for osteomyelitis, consider further evaluation with contrast enhanced MRI. Dictated by: Margarito Ulrich M.D. on 02/25/2022 at 17:07 Approved by: Margarito Ulrich M.D. on 02/25/2022 at 17:09
[2022-02-25 14:17] LABS: Add Manual Diff / Slide Review NO; Basophils Absolute Auto 100 /uL (0-100); Basophils Percent Auto 0.6 % (0-2); Eosinophils Absolute Auto 300 /uL (0-450); Eosinophils Percent Auto 2.8 % (2-4); Hematocrit 44.1 % (41-53); Hemoglobin 14.9 g/dL (13.5-17.5); Lymphocytes Absolute Auto 2900 /uL (1100-4500); Lymphocytes Percent Auto 26.4 % (25-40); Mean Corpuscular HGB Conc 33.9 % (30-36); Mean Corpuscular Hemoglobin 30.2 PG (26-34); Monocytes Absolute Auto 800 /uL (0-900); Monocytes Percent Auto 7.1 % (3-14); Neutrophils Absolute Auto 6900 /uL (1500-7000); Neutrophils Percent Auto 63.1 % (50-75); Platelet Count 313 X10^3/uL (150-400); Red Blood Cell Count 4.95 X10^6/uL (4.5-5.9); Red Cell Distribution Width 14.3 % (11.6-14.8); White Blood Cell Count 10.9 X10^3/uL (4.5-11.0)
[2022-02-25 14:46] LABS: C-Reactive Protein Quant 0.7 mg/dL (<1.0)
[2022-02-25 14:55] LABS: Erythrocyte Sedimentation Rate 19 MM/HR (0-15)
== END ==
PROVIDERS: PCP Pediatrics; Referring Provider Nurse Practitioner Family; Visit Provider Nurse Practitioner Family
DX: E11.65 Type 2 diabetes mellitus with hyperglycemia (principal); M79.89 Other specified soft tissue disorders
CPT/HCPCS: 36415; 73660; 85025; 85651; 86140

== ENCOUNTER → 2022-03-04 11:04 | Outpatient (CLI) | payer MEDICARE, MEDICAID, SELFPAY | PROVIDERS: PCP Pediatrics; Referring Provider Podiatrist; Visit Provider Nurse Practitioner Family | DX: E11.621 Type 2 diabetes mellitus with foot ulcer (principal); L97.522 Non-pressure chronic ulcer of other part of left foot with fat layer exposed; E11.42 Type 2 diabetes mellitus with diabetic polyneuropathy; L53.9 Erythematous condition, unspecified; F80.1 Expressive language disorder; I67.9 Cerebrovascular disease, unspecified; I10 Essential (primary) hypertension | CPT/HCPCS: 11042; 99213 ==

== ENCOUNTER → 2022-03-08 14:11 | Outpatient (CLI) | payer MEDICARE, MEDICAID, SELFPAY | PROVIDERS: PCP Pediatrics; Referring Provider Podiatrist; Visit Provider Family Medicine | DX: E11.621 Type 2 diabetes mellitus with foot ulcer (principal); L97.522 Non-pressure chronic ulcer of other part of left foot with fat layer exposed; E11.42 Type 2 diabetes mellitus with diabetic polyneuropathy; E11.40 Type 2 diabetes mellitus with diabetic neuropathy, unspecified; F80.1 Expressive language disorder; I10 Essential (primary) hypertension; Z86.73 Personal history of transient ischemic attack (TIA), and cerebral infarction without residual deficits | CPT/HCPCS: 11042; 99213 ==

== ENCOUNTER → 2022-03-11 11:10 | Outpatient (CLI) | payer MEDICARE, MEDICAID, SELFPAY ==
[2022-03-11 10:23] VITALS: BMI 35.7
== END ==
PROVIDERS: PCP Pediatrics; Referring Provider Pediatrics; Visit Provider Nurse Practitioner Family
DX: E11.621 Type 2 diabetes mellitus with foot ulcer (principal); L97.522 Non-pressure chronic ulcer of other part of left foot with fat layer exposed; E11.42 Type 2 diabetes mellitus with diabetic polyneuropathy; F80.1 Expressive language disorder; I67.9 Cerebrovascular disease, unspecified; I10 Essential (primary) hypertension; Z91.199 Patient's noncompliance with other medical treatment and regimen due to unspecified reason
CPT/HCPCS: 11042

== ENCOUNTER → 2022-03-18 13:09 | Outpatient (CLI) | payer MEDICARE, MEDICAID, SELFPAY ==
[2022-03-11 10:23] VITALS: BMI 35.7
== END ==
PROVIDERS: PCP Pediatrics; Referring Provider Podiatrist; Visit Provider Nurse Practitioner Family
DX: E11.621 Type 2 diabetes mellitus with foot ulcer (principal); L97.522 Non-pressure chronic ulcer of other part of left foot with fat layer exposed; E11.42 Type 2 diabetes mellitus with diabetic polyneuropathy; F80.1 Expressive language disorder; I10 Essential (primary) hypertension
CPT/HCPCS: 97597

== ENCOUNTER → 2022-03-25 11:09 | Outpatient (CLI) | payer MEDICARE, MEDICAID, SELFPAY ==
[2022-03-11 10:23] VITALS: BMI 35.7
== END ==
PROVIDERS: PCP Family Medicine; Referring Provider Family Medicine; Visit Provider Family Medicine
DX: E11.42 Type 2 diabetes mellitus with diabetic polyneuropathy (principal); Z86.31 Personal history of diabetic foot ulcer; I10 Essential (primary) hypertension; F80.1 Expressive language disorder; Z91.199 Patient's noncompliance with other medical treatment and regimen due to unspecified reason; Z86.718 Personal history of other venous thrombosis and embolism
CPT/HCPCS: 99212; 99213

== ENCOUNTER → 2022-06-27 11:53 | Outpatient (CLI) | payer MEDICARE, MEDICAID, SELFPAY ==
[2022-03-11 10:23] VITALS: BMI 35.7
[2022-06-27 12:39] LABS: Add Manual Diff / Slide Review NO; Basophils Absolute Auto 100 /uL (0-100); Basophils Percent Auto 1.1 % (0-2); Eosinophils Absolute Auto 200 /uL (0-450); Eosinophils Percent Auto 2.8 % (2-4); Hematocrit 41.1 % (41-53); Hemoglobin 14.1 g/dL (13.5-17.5); Lymphocytes Absolute Auto 1900 /uL (1100-4500); Lymphocytes Percent Auto 26.2 % (25-40); Mean Corpuscular HGB Conc 34.2 % (30-36); Mean Corpuscular Hemoglobin 30.5 PG (26-34); Mean Corpuscular Volume 89.2 fL (80-100); Monocytes Absolute Auto 600 /uL (0-900); Monocytes Percent Auto 7.7 % (3-14); Neutrophils Absolute Auto 4400 /uL (1500-7000); Neutrophils Percent Auto 62.2 % (50-75); Platelet Count 280 X10^3/uL (150-400); Red Blood Cell Count 4.61 X10^6/uL (4.5-5.9); Red Cell Distribution Width 14.8 % (11.6-14.8); White Blood Cell Count 7.1 X10^3/uL (4.5-11.0)
[2022-06-27 12:59] LABS: Alanine Aminotransferase 23 IU/L (<50); Albumin 4.7 g/dL (3.5-5.0); Albumin Globulin Ratio 1.4 (1.0-2.8); Alkaline Phosphatase 66 U/L (38-126); Aspartate Aminotransferase 20 IU/L (17-59); BUN Creatinine Ratio 17.6 (6-22); Bilirubin Total 0.8 mg/dL (0.2-1.3); Blood Urea Nitrogen 15 mg/dL (9-20); Calcium 9.7 mg/dL (8.4-10.2); Carbon Dioxide 27 mmol/L (22-32); Chloride 102 mmol/L (98-107); Cholesterol 160 mg/dL (140-199); Estimated Glomerular Filt Rate > 60 mL/min (>60); Globulin 3.4 g/dL (1.7-4.1); Glucose 127 mg/dL (70-100); HDL Cholesterol 48 mg/dL (40-60); HEMOLYSIS < 15 (0-50); LDL Cholesterol Calculated 91 mg/dL (<100); Potassium 4.2 mmol/L (3.4-5.1); Sodium 139 mmol/L (137-145); Total Protein 8.1 g/dL (6.3-8.2); Triglycerides 107 mg/dL (35-150)
[2022-06-27 13:02] LABS: Hemoglobin A1C% w Est Avg Glu 7.2 % (4.0-6.0)
[2022-06-27 16:22] LABS: Creatinine Urine Random 140.7 mg/dL
[2022-06-27 16:28] LABS: Microalbumi Creatinin Ratio Ur 21.3 ug/mg CR (<30)
== END ==
PROVIDERS: PCP Family Medicine; Referring Provider Family Medicine; Visit Provider Family Medicine
DX: I10 Essential (primary) hypertension (principal); E11.621 Type 2 diabetes mellitus with foot ulcer; E78.5 Hyperlipidemia, unspecified; I63.9 Cerebral infarction, unspecified; L97.509 Non-pressure chronic ulcer of other part of unspecified foot with unspecified severity; Z79.4 Long term (current) use of insulin
CPT/HCPCS: 36415; 80053; 80061; 82043; 82570; 83036; 85025

== ENCOUNTER → 2022-09-20 15:44 | Outpatient (CLI) | payer MEDICARE, MEDICAID, SELFPAY ==
[2022-03-11 10:23] VITALS: BMI 35.7
[2022-09-21 07:36] LABS: Labcorp Hemoglobin (Hb) A1c 6.4 % (4.8-5.6)
== END ==
PROVIDERS: PCP Family Medicine; Referring Provider Family Medicine; Visit Provider Family Medicine
DX: E11.621 Type 2 diabetes mellitus with foot ulcer (principal)
CPT/HCPCS: 83036

== ENCOUNTER → 2022-09-28 11:15 | Outpatient (CLI) | payer MEDICARE, MEDICAID, SELFPAY ==
[2022-09-28 11:06] VITALS: BMI 35.7
--- NOTE | 2022-09-28 11:16 | DI.RAD.S_ITS ---
PROCEDURE: XR SHOULDER RT MIN 2V INDICATIONS: shoulder pain TECHNIQUE: 3 views of the shoulder were acquired. COMPARISON: None. FINDINGS: Bones: No fractures or dislocations. No suspicious bony lesions. Visualized ribs appear intact. Acromioclavicular joint space narrowing with associated osteophytosis. Soft tissues: Trace calcifications projecting over the expected footplate of the supraspinatus tendon. 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 Dictated by: Alexander Hart M.D. on 09/28/2022 at 13:14 Approved by: Alexander Hart M.D. on 09/28/2022 at 13:15
== END ==
PROVIDERS: PCP Family Medicine; Referring Provider Family Medicine; Visit Provider Family Medicine
DX: M25.511 Pain in right shoulder (principal); M19.011 Primary osteoarthritis, right shoulder
CPT/HCPCS: 73030

== ENCOUNTER → 2022-10-11 13:07 | Outpatient (CLI) | payer MEDICARE, MEDICAID, SELFPAY ==
[2022-09-28 11:06] VITALS: BMI 35.7
== END ==
PROVIDERS: PCP Family Medicine; Visit Provider Physician Assistant
DX: R10.9 Unspecified abdominal pain (principal)
CPT/HCPCS: 87086

== ENCOUNTER → 2022-12-20 12:40 | Outpatient (CLI) | payer OTHER, MEDICAID, SELFPAY ==
[2022-09-28 11:06] VITALS: BMI 35.7
--- NOTE | 2022-12-20 12:43 | DI.MRI.S_ITS ---
PROCEDURE: MR SHOULDER RT WO CON INDICATIONS: pain, decreased ROM TECHNIQUE: Noncontrast oblique coronal T2 fast spin echo with fat saturation, oblique sagittal T1 spin echo and T2 fast spin echo with fat saturation, axial T1 spin echo and T2 fast spin echo with fat saturation through the shoulder. COMPARISON: [facility], CR, XR SHOULDER RT MIN 2V, 09/28/2022, 11:15. FINDINGS: Image quality: Excellent. Rotator cuff: There is full-thickness tearing of the supraspinatus tendon at the distal insertion measuring 8 mm in anterior-posterior dimension with high-grade partial articular sided tearing of the adjacent fibers of the anterior infraspinatus tendon. There is minimal proximal tendon retraction measuring 4 mm. The teres minor tendon is intact. Moderate subscapularis tendinosis with low-grade partial intrasubstance tearing at the distal insertion. No significant rotator cuff muscle atrophy. Bones and bursae: No acute trabecular bone injury or fracture. Chronic traction cystic changes are seen at the posterosuperior humeral head and greater tuberosity near the rotator cuff tendon insertions. Mild degenerative spurring in the glenoid rim. Moderate degenerative changes are seen at the acromioclavicular joint with subchondral cystic changes and marginal osteophyte formation. Small amount of fluid in the subacromial/subdeltoid bursa communicates with the glenohumeral joint space. Capsule and soft tissues: There is nondisplaced tearing of the anterosuperior to superior labrum. Proximal biceps long head tendon is intact. There is effacement of the normal fat signal in the rotator interval. The inferior glenohumeral ligament appears mildly thickened and edematous. No discontinuity of ligament fibers is seen. IMPRESSION: 1. Full-thickness tearing of the supraspinatus tendon at the distal insertion measuring 8 mm in anterior-posterior dimension, with up to 4 mm proximal tendon retraction. High-grade partial articular sided tearing is seen involving the adjacent posterior supraspinatus/anterior infraspinatus tendon. 2. Moderate subscapularis tendinosis with low-grade partial intrasubstance tearing distally. 3. Nondisplaced tearing of the anterosuperior to superior labrum. 4. Moderate acromioclavicular joint osteoarthrosis. 5. Small amount of fluid in the subacromial/subdeltoid bursa communicates with the glenohumeral joint space. 6. Thickening and mild edema within the inferior glenohumeral ligament may be secondary to a prior capsular injury versus adhesive capsulitis despite the presence of small joint effusion. No definite discontinuity of ligament fibers is seen. Approved by: Renan Cerda M.D. on 12/20/2022 at 16:07
== END ==
PROVIDERS: PCP Family Medicine; Referring Provider Family Medicine; Visit Provider Family Medicine
DX: M75.121 Complete rotator cuff tear or rupture of right shoulder, not specified as traumatic (principal); M19.011 Primary osteoarthritis, right shoulder; S43.491A Other sprain of right shoulder joint, initial encounter
CPT/HCPCS: 73221

== ENCOUNTER → 2023-01-16 12:20 | Outpatient (CLI) | payer OTHER, MEDICAID, SELFPAY ==
[2022-09-28 11:06] VITALS: BMI 35.7
[2023-01-16 13:23] LABS: Hemoglobin A1C% w Est Avg Glu 5.9 % (4.0-6.0)
== END ==
PROVIDERS: PCP Family Medicine; Referring Provider Family Medicine; Visit Provider Family Medicine
DX: E11.621 Type 2 diabetes mellitus with foot ulcer (principal); L97.509 Non-pressure chronic ulcer of other part of unspecified foot with unspecified severity; Z79.4 Long term (current) use of insulin
CPT/HCPCS: 36415; 83036

== ENCOUNTER 2023-04-14 12:06 | Emergency (ER) | payer OTHER, MEDICAID, SELFPAY ==
[2022-09-28 11:06] VITALS: BMI 35.7
[2023-04-14 12:13] VITALS: BP 215/112; PULSE 78; RESP 18; TEMP 36.4; O2SAT 100; BMI 32.8
--- NOTE | 2023-04-14 12:40 | ED_ITS ---
HPI - General Adult General Chief complaint: Hypertension Stated complaint: BP High/dr ref Time Seen by Provider: 04/14/23 12:26 Source: patient Mode of arrival: Ambulatory History of Present Illness HPI narrative: Patient is a 57-year-old male. Has a history of high blood pressure and insulin-dependent diabetes. He is also had a history of a stroke with some word-finding issues at baseline because of this. He was over at a preop today for shoulder surgery. He was not supposed to get surgery today with a suggest a preop visit. His blood pressure was taken. He was found to be hypertensive. He was sent to the emergency department. He is currently asymptomatic. He states he does not take his blood pressure at home although his family at bedside and the patient states he is normally ?high? despite the medication. He did not take his blood pressure medicines this morning. Related Data Previous Rx's Medication Instructions Recorded aspirin 81 mg tablet,delayed 81 mg PO DAILY 90 days #90 tabs 01/06/22 release blood-glucose meter,continuous #1 ea 01/06/22 (Dexcom G6 Donor Services Manager) blood-glucose sensor (Dexcom G6 #3 ea 01/06/22 Sensor device) blood-glucose transmitter (Dexcom #1 ea 01/06/22 G6 Transmitter device) insulin glargine 100 unit/mL (3 47 unit (0.47 mL) SUBCUT DAILY #45 01/06/22 mL) subcutaneous pen (Lantus mL Solostar U-100 Insulin) lancets 33 gauge (BD Ultra Fine #100 ea 01/06/22 Lancets) pen needle, diabetic 32 gauge x #100 ea 01/06/22 5/32 (BD Ultra-Fine Jessica Pen Needle) lisinopril 40 mg tablet 40 mg PO DAILY blood pressure #90 06/29/22 tabs Diabetic shoes size 12W no. 38 #1 ea 12/20/22 with diabetic inserts metformin 500 mg tablet,extended 1,000 mg (2 x 500 mg) PO DAILY 01/17/23 release 24hr blood sugars #180 tabs mupirocin 2 % topical ointment 1 applic topical TID #15 grams 02/16/23 blood sugar diagnostic (Blood #100 ea 03/09/23 Glucose Test strips) blood sugar diagnostic (True #100 ea 03/10/23 Metrix Glucose Test Strip) blood-glucose meter (True Metrix #1 ea 03/10/23 Glucose Meter) one touch Delica Plus lancets Fine #1 ea 03/27/23 30g atorvastatin 80 mg tablet See Rx Instructions .Route 04/03/23 .COMPLEX #90 tabs Allergies Allergy/AdvReac Type Severity Reaction Status Date / Time No Known Drug Allergies Allergy Verified 04/14/23 12:18 Review of Systems ENT Comments: Denies headache Cardiovascular Comments: Denies chest pain Respiratory Comments: Denies shortness of breath Gastrointestinal Comments: Denies abdominal pain Neurologic Comments: No neurologic changes from baseline Patient History Medical History Aphasia Tobacco dependence Foot ulcer due to secondary DM Hyperlipidemia Benign essential HTN Type 2 diabetes mellitus with foot ulcer, with long-term current use of insulin Hearing loss Stroke (~04/2021) Acne Cellulitis Surgical History Anesthesia History of tonsillectomy and adenoidectomy (~1969) No history of previous surgery Family History Father Alcohol abuse Sister Heart palpitations Hypertension Grandfather Diabetes mellitus Grandmother No problems noted. Social History household members: friend(s) Smoking Status: Current every day smoker Tobacco: How many years used: 40 alcohol intake: current substance use type: does not use Smoking Status: Current every day smoker tobacco type: cigarettes alcohol intake frequency: 3 or more drinks per day Alcohol type: hard liquor Substance Use Type: does not use Exam Initial Vital Signs Initial Vital Signs: Vital Signs Temperature 97.5 F L 04/14/23 12:13 Pulse Rate 78 04/14/23 12:13 Respiratory Rate 18 04/14/23 12:13 Blood Pressure 215/112 H 04/14/23 12:13 Pulse Oximetry 100 04/14/23 12:13 Oxygen Delivery Method Room Air 04/14/23 12:13 HENMT Head: normal to inspection and atraumatic Resp Effort & Inspection: normal respiratory effort Auscultation: clear to auscultation bilaterally Cardio Rate: regular rate Rhythm: regular rhythm Neuro Gait: normal gait Other: Patient does have expressive aphasia but does follow commands. Extrem General: No edema Course Orders Ordered: ED Orders 04/14/23 12:27 EKG-12 Lead Stat Discontinued Medications Lisinopril (Lisinopril 20 Mg Tablet) 40 mg PO NOW ONE Stop: 04/14/23 12:41 Last Admin: 04/14/23 12:45 Dose: 40 mg Documented By: ANANYA Vital Signs Vital signs: Vital Signs - 8 hr 04/14/23 12:13 04/14/23 12:45 04/14/23 13:30 Temperature 97.5 F L Pulse Rate 78 75 78 Respiratory Rate 18 16 Blood Pressure 215/112 H 221/107 H Pulse Oximetry 100 98 Oxygen Delivery Method Room Air 04/14/23 13:30 Temperature Pulse Rate Respiratory Rate Blood Pressure 200/106 H Pulse Oximetry Oxygen Delivery Method Medical Decision Making ECG Data Attestation: I personally reviewed and interpreted this ECG as follows: Interpretation: Sinus rhythm Ventricular rate is 74 Left axis deviation QRS [address] T wave changes MDM Narrative Medical decision making narrative: Patient is asymptomatic. Review of his medical record shows that he generally runs greater than 150 on his systolic blood pressures. He did not take his blood pressure medications this morning. He is no chest pain, shortness of breath, change in neurologic status, lower extremity swelling. EKG is unremarkable. Patient was given his home medications here in the ER. His blood pressure improved. Patient would like to be discharged home. Discharge Plan Departure Patient Disposition: Home Clinical Impression: Hypertension Instructions: DI for High Blood Pressure Activity Restrictions/Additional Instructions: Recommend that you take all of your medications as directed. Contact your primary doctor for a follow-up. Return to the emergency department for new or worsening symptoms. Prescriptions: No Action (DME) Diabetic shoes size 12W no. 38 with diabetic inserts See Rx Instructions .Route .MEDSUPPLY Qty: 1 0RF Rx Instructions: As directed mupirocin 2 % ointment 1 applic topical TID Qty: 15 11RF (DME) Blood Glucose Test Strip See Rx Instructions .ROUTE .MEDSUPPLY Qty: 100 6RF Rx Instructions: Use to test blood glucose twice daily. (DME) blood-glucose meter [True Metrix Glucose Meter] [facility] See Rx Instructions .Route Qty: 1 0RF Rx Instructions: As directed (DME) True Metrix Glucose Test Strip Strip See Rx Instructions .Route Qty: 100 1RF Rx Instructions: test glucose level twice daily, ss directed (DME) one touch Delica Plus lancets Fine 30g See Rx Instructions .Route .MEDSUPPLY Qty: 1 0RF Rx Instructions: use to test blood glucose two times a day. atorvastatin 80 mg tablet See Rx Instructions .ROUTE .COMPLEX Qty: 90 3RF Dose Instruction: TAKE ONE TABLET BY MOUTH NIGHTLY AT BEDTIME Rx Instructions: TAKE ONE TABLET BY MOUTH NIGHTLY AT BEDTIME metformin 500 mg tablet extended release 24hr 1,000 mg PO DAILY Qty: 180 3RF (DME) lancets [BD Ultra Fine Lancets] 33 gauge misc See Rx Instructions .ROUTE .MEDSUPPLY Qty: 100 6RF Rx Instructions: Use to test blood glucose twice daily (DME) Dexcom G6 Donor Services Manager Misc See Rx Instructions .ROUTE .MEDSUPPLY Qty: 1 0RF Rx Instructions: USE FOR CONTINUOUS BLOOD GLUCOSE MONITORING. REPLACE EVERY YEAR (DME) Dexcom G6 Transmitter Device See Rx Instructions .ROUTE .MEDSUPPLY Qty: 1 3RF Rx Instructions: USE FOR CONTINUOUS BLOOD GLUCOSE MONITORING. REPLACE EVERY 90 DAYS. (DME) Dexcom G6 Sensor Device See Rx Instructions .ROUTE .MEDSUPPLY Qty: 3 12RF Rx Instructions: As directed aspirin 81 mg tablet,delayed release (DR/EC) 81 mg PO DAILY 90 Days Qty: 90 4RF Lantus Solostar U-100 Insulin 100 unit/mL (3 mL) insulin pen 47 unit SUBCUT DAILY Qty: 45 4RF (DME) pen needle, diabetic [BD Ultra-Fine Jessica Pen Needle] 32 gauge x 5/32 needle See Rx Instructions .ROUTE .MEDSUPPLY Qty: 100 8RF Rx Instructions: USE TO ADMINISTER LANTUS ONCE DAILY lisinopril 40 mg tablet 40 mg PO DAILY Qty: 90 3RF Referrals: Enzo Keita DO [Primary Care Provider] - Stand Alone Forms: Patient Portal/API
[2023-04-14 12:45] VITALS: BP 221/107; PULSE 75
[2023-04-14] MEDS: lisinopriL 20 MG TABLET 40 MG PO (12:45)
--- NOTE | 2023-04-14 12:50 | PC.NURSE ---
Pt came to the emergency department today because of high blood pressure at his orthopedic surgeon's office. Pt denies any sx and states that he takes medications at home for diabetes and htn. Denies cp or sob at this time. Pt has hx of diabetes, htn, and stroke. Pt has speech deficits related to past stroke. Mother at bedside and confirms pt medical hx.
[2023-04-14 13:30] VITALS: BP 200/106; PULSE 78; RESP 16; O2SAT 98
[2023-04-14 14:00] LABS: Hemoglobin A1C% w Est Avg Glu 6.8 % (4.0-6.0)
== END 2023-04-14 13:47 | disposition home or self-care (01) ==
PROVIDERS: Emergency Provider Emergency Medicine; Family Provider Family Medicine; PCP Family Medicine
DX: I10 Essential (primary) hypertension (principal); F17.210 Nicotine dependence, cigarettes, uncomplicated
CPT/HCPCS: 36415; 83036; 93005; 93010; 99283

== ENCOUNTER → 2023-04-28 11:57 | Outpatient (CLI) | payer OTHER, MEDICAID, SELFPAY ==
[2022-09-28 11:06] VITALS: BMI 35.7
[2023-04-28 13:11] LABS: Add Manual Diff / Slide Review NO; Basophils Absolute Auto 0 /uL (0-100); Basophils Percent Auto 0.6 % (0-2); Eosinophils Absolute Auto 300 /uL (0-450); Eosinophils Percent Auto 4.7 % (2-4); Hematocrit 41.7 % (41-53); Hemoglobin 14.4 g/dL (13.5-17.5); Lymphocytes Absolute Auto 2000 /uL (1100-4500); Mean Corpuscular HGB Conc 34.6 % (30-36); Mean Corpuscular Volume 92.6 fL (80-100); Monocytes Absolute Auto 700 /uL (0-900); Monocytes Percent Auto 10.4 % (3-14); Neutrophils Absolute Auto 4000 /uL (1500-7000); Neutrophils Percent Auto 56.3 % (50-75); Platelet Count 229 X10^3/uL (150-400); Red Cell Distribution Width 14.7 % (11.6-14.8); White Blood Cell Count 7.1 X10^3/uL (4.5-11.0)
[2023-04-28 13:41] LABS: BUN Creatinine Ratio 21.4 (6-22); Blood Urea Nitrogen 21 mg/dL (9-20); Calcium 10.4 mg/dL (8.4-10.2); Carbon Dioxide 26 mmol/L (22-32); Chloride 103 mmol/L (98-107); Estimated Glomerular Filt Rate > 60 mL/min (>60); Glucose 75 mg/dL (70-100); HEMOLYSIS < 15 (0-50); Potassium 4.8 mmol/L (3.4-5.1); Sodium 138 mmol/L (137-145)
== END ==
PROVIDERS: Family Provider Family Medicine; PCP Family Medicine; Referring Provider Orthopaedic Surgery; Visit Provider Orthopaedic Surgery
DX: Z01.812 Encounter for preprocedural laboratory examination (principal)
CPT/HCPCS: 36415; 80048; 85025

== ENCOUNTER 2023-05-03 13:04 | Day surgery (SDC) | payer OTHER, MEDICAID, SELFPAY ==
[2022-09-28 11:06] VITALS: BMI 35.7
[2023-05-01 12:31] VITALS: BMI 36.6
[2023-05-03] VITALS (12 sets, daily range): BP systolic 133–169; BP diastolic 69–96; PULSE 74–95; RESP 12–18; TEMP 36.4–36.8; O2SAT 91–98; BMI 36.6; BMI 36.2
[2023-05-03] MEDS: LACTATED RINGERS 1,000 ML 42 ML IV ×2 (14:05→15:59)
[2023-05-03] MEDS: ACETAMINOPHEN 325 MG TABLET 975 MG PO (14:05)
--- NOTE | 2023-05-03 14:13 | SUR.PREOP ---
Danny Ayala notified of HX of ETOH use and needing medication when he was admitted for his stroke
--- NOTE | 2023-05-03 14:36 | PM.HP.1 ---
History of Present Illness History of Present Illness Date Patient Seen: 05/03/23 Time Patient Seen: 14:37 Chief complaint: RightRotator cuff tear Narrative: This is a pleasant 57-year-old male with past medical history of right shoulder pain which has not abated with nonoperative measures including anti-inflammatories corticosteroid injections, rest, activity modifications and therapy. We had previously discussed in clinic performing a rotator cuff repair which he would like to go forward with [facility] Medical History (Updated 04/29/23 @ 00:01 by ) Type 2 diabetes mellitus with diabetic polyneuropathy Aphasia Tobacco dependence Foot ulcer due to secondary DM Hyperlipidemia Benign essential HTN Type 2 diabetes mellitus with foot ulcer, with long-term current use of insulin Hearing loss Stroke (~04/2021) Acne Cellulitis Surgical History (Updated 05/01/23 @ 12:34 by Alicia Banks RN) Anesthesia History of tonsillectomy and adenoidectomy (~1970) Family History Father Alcohol abuse Sister Heart palpitations Hypertension Grandfather Diabetes mellitus Grandmother No problems noted. Social History household members: none Smoking Status: Current every day smoker Tobacco: How many years used: 40 alcohol intake: current substance use type: does not use Meds Home Medications and Allergies Home Medications Medication Instructions Recorded Confirmed Type aspirin 81 mg tablet,delayed 81 mg PO DAILY 90 days #90 tabs 01/06/22 04/18/23 Rx release blood-glucose meter,continuous #1 ea 01/06/22 04/18/23 Rx (Dexcom G6 Meal Packer) blood-glucose sensor (Dexcom G6 #3 ea 01/06/22 04/18/23 Rx Sensor device) blood-glucose transmitter (Dexcom #1 ea 01/06/22 04/18/23 Rx G6 Transmitter device) insulin glargine 100 unit/mL (3 47 unit (0.47 mL) SUBCUT DAILY #45 01/06/22 04/18/23 Rx mL) subcutaneous pen (Lantus mL Solostar U-100 Insulin) lancets 33 gauge (BD Ultra Fine #100 ea 01/06/22 04/18/23 Rx Lancets) pen needle, diabetic 32 gauge x #100 ea 01/06/22 04/18/23 Rx 5/32 (BD Ultra-Fine Jessica Pen Needle) lisinopril 40 mg tablet 40 mg PO DAILY blood pressure #90 06/29/22 04/18/23 Rx tabs Diabetic shoes size 12W no. 38 #1 ea 12/20/22 04/18/23 Rx with diabetic inserts metformin 500 mg tablet,extended 1,000 mg (2 x 500 mg) PO DAILY 01/17/23 04/18/23 Rx release 24hr blood sugars #180 tabs mupirocin 2 % topical ointment 1 applic topical TID #15 grams 02/16/23 04/18/23 Rx blood sugar diagnostic (Blood #100 ea 03/09/23 04/18/23 Rx Glucose Test strips) blood sugar diagnostic (True #100 ea 03/10/23 04/18/23 Rx Metrix Glucose Test Strip) blood-glucose meter (True Metrix #1 ea 03/10/23 04/18/23 Rx Glucose Meter) one touch Delica Plus lancets Fine #1 ea 03/27/23 04/18/23 Rx 30g atorvastatin 80 mg tablet See Rx Instructions .Route 04/03/23 04/18/23 Rx .COMPLEX #90 tabs amlodipine 2.5 mg tablet (Norvasc) 2.5 mg PO DAILY blood pressure #90 04/18/23 05/03/23 Rx tabs Allergies Allergy/AdvReac Type Severity Reaction Status Date / Time No Known Drug Allergies Allergy Verified 05/03/23 14:04 Review of Systems Review of Systems ROS: Yes All systems reviewed with the patient and are negative except as otherwise documented Exam Vital Signs (past 8 hours): - 05/03/23 14:15 Temperature 98.0 F Pulse Rate 85 Respiratory Rate 12 Blood Pressure 165/96 H Pulse Oximetry 98 Oxygen Delivery Method Room Air Oxygen Delivery Method Room Air Narrative Exam Narrative: HEENT: Head atraumatic eyes anicteric moist mucous membranes Cardiovascular: Palpable peripheral pulses extremities are warm and well perfused Respiratory: Breathing comfortably on room air Psychiatric: Appropriate mood and affect Neuro: No acute deficits Musculoskeletal: Exam of the right upper extremity demonstrates weakness with empty can test and external rotation resisted Assessment & Plan Assessment & Plan narrative: Assessment: 57-year-old male with right rotator cuff tear Plan: As previously discussed we will be planning on going forward with a rotator cuff repair. His mother is here for the discussion and she is his power of workers compensation defense attorney. Risks and benefits of surgery were discussed again including the risk of infection, damage to internal structures, bleeding, nerve injury, instability, need for revision surgery, blood clots, anesthesia and . No guarantees were made regarding outcomes. Patient and his mother expressed understanding and accepted these risks and wished to go forward with surgery and consent was signed.
[2023-05-03] MEDS: CEFAZOLIN VIAL 3 GM in SODIUM CHLORIDE 0.9% 100 ML IV (14:55)
[2023-05-03] MEDS: TRANEXAMIC ACID 1,000 MG VIAL 1000 MG INJ (14:55)
--- NOTE | 2023-05-03 15:00 | SUR.PREOP ---
Time out 1434. Block start time [1435] . Monitoring initiated and maintained throughout procedure. Oxygen and medications given per anesthesiologist instructions. Patient remained stable throughout procedure, no adverse reactions noted. Block end time [1445 ].
[2023-05-03] MEDS: BUPIVACAINE 0.25% (PF) 30 ML, EPINEPHrine 0.15 MG INJ (15:58)
[2023-05-03] MEDS: SODIUM CHLORIDE IRRIG SOLUTION 3,000 ML, EPINEPHrine 1 MG IRR (16:05)
--- NOTE | 2023-05-03 16:30 | P.OP_ITS ---
Operative Date/Time/Diagnoses Date of procedure: 05/03/23 Time of procedure: 16:30 Pre-op diagnosis: Right rotator cuff tear Post-op diagnosis: same Procedure & Clinicians Procedure: Right rotator cuff repair Same procedure as scheduled: Yes Indications: Indications: Alexander Has a history of right shoulder pain. Has had no response thus far to nonoperative treatment. We discussed at length that surgery for a rotator cuff tear is primarily for pain and no guarantees were made regarding strength and range of motion. Patient was again explained the risks, benefits and alternatives to surgery. All questions were answered. The patient wished to proceed. Surgeon: Bert Ayala Baker Second: Dennys Riggs Click Yes if Unassisted: Yes Anesthesia Type: General Operative Notes Findings: Findings: Glenohumeral joint-mild signs of osteoarthritis with grade 1-2 chondromalacia. There is degenerative changes noted to the labrum anteriorly and posteriorly Biceps tendon: Intact Subscapularis: Intact Inferior capsule: Intact Rotator cuff: The supraspinatus was torn from the insertion on the greater tuberosity Subacromial space: Extensive synovitis Closure Type: primary Specimen(s): none sent Prosthetic devices, grafts, tissues, transplants, or devices: Carroll x4 Estimated Blood Loss (mL): 10 Procedure in detail: The patient was seen preoperatively. Risks and benefits were explained, and my initials were marked on the right shoulder. A block was not performed by anesthesia. The patient was brought to the operating room and placed supine on the operating table and underwent smooth induction of general anesthesia. 2 g of Ancef were given intravenously prior to the start of the operation, and 1 g of TXA was also given. The arm was prepped and draped in the standard sterile fashion using chlorhexidine. Appropriate drying time was observed. Before beginning the procedure, a time-out was performed and again my initials were confirmed the correct side. 15 cc of 0.25% Marcaine with epinephrine were injected into the subacromial space prior to start. A standard posterior portal was then established. On entering the glenohumeral joint there was mild to moderate cartilage pathology. An anterior portal was established outside in. In the glenohumeral joint, the biceps was noted to be intact and the subscapularis was was also intact. The undersurface of the rota tor cuff was torn anterior, just posterior to the biceps. The inferior capsule was noted to be intact. There was some labral degeneration noted both anterior and posterior. Extensive synovitis noted. Excess debridement was performed of the labral tissue, glenoid bone, glenoid cartilage, humeral cartilage, biceps anchor. We then established into the subacromial space and a lateral portal was made. A bursectomy was then performed. The coracoclavicular ligament was minimally released off the anterior acromion and a gentle acromioplasty was performed enough for better visualization and to remove significant spurs. Once bursectomy, and acromioplasty were performed we had full visualization of the rotator cuff. It was noted at this time that the patient had a 7 mm tear of the anterior portion of the supraspinatus. We then freshened up the footprint with a shaver and debrided the cuff tear edges. Two separate preloaded SwiveLock Anchors were placed. These were passed through the cuff anterior and posterior We then tied down from posterior to anterior for a good secure repair. A lateral row trans osseous equivalent anchor was placed x2 crossing the sutures over the top for a speed bridge. Final arthroscopic pictures were obtained demonstrating a secure repair. The wounds were closed with Monocryl and dressed with Xeroform, 4x4s, ABDs and they were placed into a sling. Patient was woken from anesthesia and transported to recovery unit without any complications. Assisting participation: This operation could not have been safely performed (without compromising the technical results or length of the procedure) without the assistance of a skilled surgical oncologist. The surgical oncologist was medically necessary for proper positioning, retraction and manipulation of instruments, proper exposure, graft prep, and manipulation of tissue. Complications: none Post-operative Condition: stable Disposition: Acute Care Plan for aftercare: Postoperatively patient will be nonweightbearing to the operative extremity. Must remain in a sling for 6 weeks with no active range of motion. Okay for dressings to come off in 3 days, take a shower with warm soap and water and then placed Band-Aids over the wounds. After a total of 5 days from surgery all dressings may come off. Keep follow-up appointment in 2 weeks.
[2023-05-03] MEDS: HYDROMORPHONE 1 MG INJ IV ×4 (16:43→17:04)
[2023-05-03] MEDS: OXYCODONE IR 5 MG TABLET PO (16:47)
--- NOTE | 2023-05-03 18:40 | PC.NURSE ---
Day shift: Patient admitted from PACU after rotator cuff surgery. Pt word searching - able to tell me his name, where he is, that he wants a cigarette, but has a hard time coming up with month, year, or day. Unclear if he has trouble finding the words or if he doesn't know. VS WNL. RA. Gauze and tape covering R shoulder incision. Pt denies numbness or tingling on RUE. CMS intact. OOB with SBA from stretcher to bed. Pt denies nausea, SOB or chest pain. BG checked in PACU directly before coming up to the floor. No insulin given. Patient rating pain 3/10 and able to sleep. Oriented patient to room, call light within reach. Will continue to monitor.
[2023-05-03] MEDS: DOCUSATE 100 MG CAPSULE PO (20:26)
[2023-05-03] MEDS: SENNOSIDES 8.6 MG TABLET 17.2 MG PO (20:26)
[2023-05-03] MEDS: ATORVASTATIN 20 MG TABLET PO (20:26)
[2023-05-04] VITALS: BP 119/85; PULSE 76; RESP 18; TEMP 36.4; O2SAT 97
[2023-05-04] MEDS: ACETAMINOPHEN 325 MG TABLET 650 MG PO ×2 (00:33→06:49)
[2023-05-04] MEDS: OXYCODONE IR 5 MG TABLET PO ×3 (00:33→08:41)
[2023-05-04] MEDS: HYDROMORPHONE 0.5 MG INJ IV ×2 (03:57→06:49)
[2023-05-04] MEDS: IBUPROFEN 600 MG TABLET PO ×2 (03:59→09:49)
[2023-05-04 04:00] VITALS: PULSE 71; RESP 19; TEMP 36.4; O2SAT 98
[2023-05-04 04:59] LABS: Hematocrit 36.5 % (41-53); Hemoglobin 12.5 g/dL (13.5-17.5); Mean Corpuscular HGB Conc 34.3 % (30-36); Mean Corpuscular Hemoglobin 31.8 PG (26-34); Mean Corpuscular Volume 92.7 fL (80-100); Platelet Count 209 X10^3/uL (150-400); Red Blood Cell Count 3.93 X10^6/uL (4.5-5.9); Red Cell Distribution Width 14.8 % (11.6-14.8); White Blood Cell Count 11.1 X10^3/uL (4.5-11.0)
--- NOTE | 2023-05-04 07:45 | PM.DS.1 ---
History of Present Illness History of Present Illness Date Patient Seen: 05/04/23 Time Patient Seen: 07:45 Chief complaint: RightRotator cuff tear Narrative: Operative Date/Time/Diagnoses Date of procedure: 05/03/23 Time of procedure: 16:30 Pre-op diagnosis: Right rotator cuff tear Post-op diagnosis: same Procedure & Clinicians Procedure: Right rotator cuff repair Same procedure as scheduled: Yes Indications: Indications: Alexander Has a history of right shoulder pain. Has had no response thus far to nonoperative treatment. We discussed at length that surgery for a rotator cuff tear is primarily for pain and no guarantees were made regarding strength and range of motion. Patient was again explained the risks, benefits and alternatives to surgery. All questions were answered. The patient wished to proceed. Surgeon: Bert Ayala Hi Teacher: Dennys Riggs Click Yes if Unassisted: Yes Anesthesia Type: General Operative Notes Findings: Findings: Glenohumeral joint-mild signs of osteoarthritis with grade 1-2 chondromalacia. There is degenerative changes noted to the labrum anteriorly and posteriorly Biceps tendon: Intact Subscapularis: Intact Inferior capsule: Intact Rotator cuff: The supraspinatus was torn from the insertion on the greater tuberosity Subacromial space: Extensive synovitis Closure Type: primary Specimen(s): none sent Prosthetic devices, grafts, tissues, transplants, or devices: SwiveLock x4 Estimated Blood Loss (mL): 10 Discharge Providers Provider Discharge Date: 05/04/23 Primary care physician: Enzo Keita DO Consults: 05/03/23 08:20 Consult to Anesthesiology Routine Comment: Consulting Provider: Anesthesiologist Reason for consultation: Post operative pain managment Has provider been notified: No 05/03/23 14:50 Consult to Discharge Planning Routine Comment: Consult to Physical Therapy Evaluate & Treat Comment: Physician Instructions: Evaluate and Treat Discharge provider: Zabrina Carr PA-C Exam Vital Signs (past 8 hours): - 05/04/23 00:00 05/04/23 04:00 Temperature 97.5 F L 97.5 F L Pulse Rate 76 71 Respiratory Rate 18 19 Blood Pressure 119/85 Pulse Oximetry 97 98 Oxygen Flow Rate 0 0 Oxygen Delivery Method Room Air Oxygen Flow Rate 0 Narrative Exam Narrative: 5/5 ribbon weaver strength. Pt has strong reaction to even light touch anywhere on the RUE. Dressing placed intraoperatively CDI, sling in good position. Objective Labs 05/04/23 04:19 Labs: Laboratory Results - last 24 hr 05/04/23 04:19 WBC 11.1 H RBC 3.93 L Hgb 12.5 L Hct 36.5 L MCV 92.7 MCH 31.8 MCHC 34.3 RDW 14.8 Plt Count 209 PFSH Medical History (Updated 04/29/23 @ 00:01 by ) Type 2 diabetes mellitus with diabetic polyneuropathy Aphasia Tobacco dependence Foot ulcer due to secondary DM Hyperlipidemia Benign essential HTN Type 2 diabetes mellitus with foot ulcer, with long-term current use of insulin Hearing loss Stroke (~04/2021) Acne Cellulitis Surgical History (Updated 05/01/23 @ 12:34 by Alicia Banks RN) Anesthesia History of tonsillectomy and adenoidectomy (~1969) Family History Father Alcohol abuse Sister Heart palpitations Hypertension Grandfather Diabetes mellitus Grandmother No problems noted. Social History household members: none Smoking Status: Current every day smoker Tobacco: How many years used: 40 alcohol intake: current substance use type: does not use Discharge Assessment & Plan Assessment and Plan Assessment: Right rotator cuff tear, s/p arthroscopic rotator cuff repair. Plan of Treatment: Discharge home, multimodal pain control, NWB to right hand w/ sling in place x 6 weeks, f/u in office in 2 weeks. Discharge Plan Discharge Plan Patient Disposition: Home Discharge orders & Medications Discharge Orders: Discharge (Order); Ordered 05/04/23 Ordered By: Zabrina Carr Prescriptions: New hydrocodone-acetaminophen 5-325 mg tablet 1 tab PO Q6H PRN (Reason: pain) Qty: 20 0RF ondansetron HCl 4 mg tablet 4 mg PO Q8H PRN (Reason: nausea and vomiting) Qty: 10 0RF ibuprofen 600 mg tablet 600 mg PO Q6H PRN (Reason: pain) Qty: 60 0RF Continued (DME) Diabetic shoes size 12W no. 38 with diabetic inserts See Rx Instructions .Route .MEDSUPPLY Qty: 1 0RF Rx Instructions: As directed mupirocin 2 % ointment 1 applic topical TID Qty: 15 11RF (DME) Blood Glucose Test Strip See Rx Instructions .ROUTE .MEDSUPPLY Qty: 100 6RF Rx Instructions: Use to test blood glucose twice daily. [place] [place] [True Metrix Glucose Meter] Misc See Rx Instructions .Route Qty: 1 0RF Rx Instructions: As directed [place] [place] True Metrix Glucose Test Strip Strip See Rx Instructions .Route Qty: 100 1RF Rx Instructions: test glucose level twice daily, ss directed (DME) one touch Delica Plus lancets Fine 30g See Rx Instructions .Route .MEDSUPPLY Qty: 1 0RF Rx Instructions: use to test blood glucose two times a day. atorvastatin 80 mg tablet See Rx Instructions .ROUTE .COMPLEX Qty: 90 3RF Dose Instruction: TAKE ONE TABLET BY MOUTH NIGHTLY AT BEDTIME Rx Instructions: TAKE ONE TABLET BY MOUTH NIGHTLY AT BEDTIME metformin 500 mg tablet extended release 24hr 1,000 mg PO DAILY Qty: 180 3RF amlodipine [Norvasc] 2.5 mg tablet 2.5 mg PO DAILY Qty: 90 3RF [place] [place] lancets [BD Ultra Fine Lancets] 33 gauge misc See Rx Instructions .ROUTE .MEDSUPPLY Qty: 100 6RF Rx Instructions: Use to test blood glucose twice daily [place] [place] Dexcom G6 Core Sucker Misc See Rx Instructions .ROUTE .MEDSUPPLY Qty: 1 0RF Rx Instructions: USE FOR CONTINUOUS BLOOD GLUCOSE MONITORING. REPLACE EVERY YEAR [place] [place] Dexcom G6 Transmitter Device See Rx Instructions .ROUTE .MEDSUPPLY Qty: 1 3RF Rx Instructions: USE FOR CONTINUOUS BLOOD GLUCOSE MONITORING. REPLACE EVERY 90 DAYS. [place] [place] Dexcom G6 Sensor Device See Rx Instructions .ROUTE .MEDSUPPLY Qty: 3 12RF Rx Instructions: As directed aspirin 81 mg tablet,delayed release (DR/EC) 81 mg PO DAILY 90 Days Qty: 90 4RF Lantus Solostar U-100 Insulin 100 unit/mL (3 mL) insulin pen 47 unit SUBCUT DAILY Qty: 45 4RF (DME) pen needle, diabetic [BD Ultra-Fine Jessica Pen Needle] 32 gauge x 5/32 needle See Rx Instructions .ROUTE .MEDSUPPLY Qty: 100 8RF Rx Instructions: USE TO ADMINISTER LANTUS ONCE DAILY lisinopril 40 mg tablet 40 mg PO DAILY Qty: 90 3RF Jardiance 10 mg tablet 10 mg PO DAILY Follow up/Referrals: Bert Ayala MD [Physician] - 05/19/23 1:00 pm (Appt:05/19 @ 1:00 with Alena Carr pa-c @ [id number] [place] for wound check.) Enzo Keita DO [Primary Care Provider] - Diet/Activity/Treatments Diet: Diet as Tolerated Activity: Nonweightbearing to the operative extremity. Must remain in a sling for 6 weeks with no active range of motion. Okay for dressings to come off in 3 days, take a shower with warm soap and water and then placed Band-Aids over the wounds. After a total of 5 days from surgery all dressings may come off. Visit Report/Discharge Packet Instructions: DI for Rotator Cuff Repair, DI for Prescription Opioid Use Stand Alone Forms: Patient Portal/API, Surgery Discharge Discharge Data Primary Care Provider: Enzo Keita Attending Provider: Bert Ayala Quality VTE Deep Vein Thrombosis/Pulmonary Embolism Present on Admission: No
[2023-05-04 08:40] VITALS: BP 145/85
[2023-05-04] MEDS: lisinopriL 20 MG TABLET 40 MG PO (08:40)
[2023-05-04] MEDS: AMLODIPINE 5 MG TABLET 2.5 MG PO (08:40)
[2023-05-04] MEDS: DOCUSATE 100 MG CAPSULE PO (08:41)
[2023-05-04] MEDS: INSULIN GLARGINE 100 UNIT/ML 3ML PEN 47 UNIT SUBCUT (08:41)
[2023-05-04] MEDS: polyethylene glycoL 3350 17 GM POWD.PACK PO (08:41)
[2023-05-04 09:11] VITALS: BP 145/85; PULSE 71; RESP 22; TEMP 36.1; O2SAT 98
--- NOTE | 2023-05-04 10:48 | PT.IIE ---
Current Diagnoses Other specified joint disorders, right shoulder (05/03/23) Bicipital tendinitis, right shoulder (05/03/23) Unspecified injury of muscle(s) and tendon(s) of the rotator cuff of right shoulder, initial encounter (05/03/23) Surgery Performed Operation Date: 05/03/23 13:45 Actual Procedures p Arthroscopic Rotator Cuff Repair, subacromial decompression, possible biceps tenotomy verus tenodesis(Right) - Bert Ayala MD Surgical History (Last Updated 05/01/23 @ 12:34 by Alicia Banks RN) Anesthesia History of tonsillectomy and adenoidectomy (~1970) Medical History (Last Updated 04/18/23 @ 14:23 by Enzo Keita DO) Acne Aphasia Benign essential HTN Cellulitis Foot ulcer due to secondary DM Hearing loss Hyperlipidemia Stroke (~04/2021) Tobacco dependence Type 2 diabetes mellitus with diabetic polyneuropathy Type 2 diabetes mellitus with foot ulcer, with long-term current use of insulin Physical Therapy Inpatient Evaluation/Re-Eval M1 PT/OT-IP Prior Functional Status Start: 05/04/23 09:29 Freq: NEEDED Status: Active Protocol: Document 05/04/23 10:20 MB (Rec: 05/04/23 10:48 MB [id number]) Medical Review Prior Functional Status Medical History Reviewed Yes Communication Pt with severe aphasia and so unsure baseline diet and communication Mobility and Gait Pt cannot clearly answer any questions, 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 Pt states no when asked about steps but did perform stair training just in case Additional Social History Comment Pt cannot answer any DME/home set-up or other questions. He becomes agitated and communicates he wants to leave and to smoke. He pulls up [employer] on his smart phone M2 PT-IP Current Condition Start: 05/04/23 09:29 Freq: NEEDED Status: Active Protocol: Document 05/04/23 10:20 MB (Rec: 05/04/23 10:48 MB [id number]) Physical Therapy Current Condition Current Condition Evaluation Date 05/04/23 Treatment Diagnosis R RCR, supraspinatus tear M3 PT-IP Subjective Start: 05/04/23 09:29 Freq: NEEDED Status: Active Protocol: Document 05/04/23 10:20 MB (Rec: 05/04/23 10:48 MB [id number]) Subjective Physical Therapy Visit Type Type Initial Evaluation Visit Start Time 10:20 Visit Stop Time 10:32 Total Visit Minutes 12 Number of QUARRY SUPERVISOR [employer]ONE Visits 0 Physical Therapy Visit Comments Patient Comments Pt with aphasia and is only able to clearly communicate that he wants to leave and does not want to wait and wants to smoke Therapy Pain Assessment Pain When Pain Assessed At Rest Pain Present Pain Present Pain Reported Location Right Shoulder Intensity 7 Scale Used [place]-Jerez (Faces) Description Acute Pain Behaviors Calling Out,Facial Grimacing, Guarding,Holding Area, Restlessness Pain Management Techniques Distraction M4 PT-IP Mobility and Gait Start: 05/04/23 09:29 Freq: NEEDED Status: Active Protocol: Document 05/04/23 10:20 MB (Rec: 05/04/23 10:48 MB [id number]) PT-Bed Mobility Assessment Supine to Sit Supine to Sit Independent Sit to Supine Sit to Supine Independent Scooting Scooting to Edge of Bed Independent PT-Transfer Assessment Sit to and From Stand Sit to and from Stand Standby Assistance,1 Person Assistance Equipment Transfer Assistive Device None Orthotic/Prosthetic Devices or Brace: Yes Transfers Transfer Destination Chair Transfer Technique Stand Pivot Transfer Ability Level of Assist Standby Assistance,1 Person Assistance Comments Mobility Comments Pt is somewhat impulsive and agitated and has difficulty communicating d/t aphasia. He requires SBA for all mobility as a result. He wears an abduction sling right arm and does c/o pain in right arm with steps even though arm is immobilized. Gait Assessment Gait Gait Assistance Required: Standby Assistance Distance (Feet) 100 Assistive Devices Assistive Device None Factors Limiting Gait Function Factors Limiting Gait Function Difficulty Following Directions,Pain,Poor Safety Awareness Comments Gait Comments Pt gait trains 100' x2 with SBA and he requires this assistance d/t decreased safety awareness. Pt with agitation and c/o pain with mobility and so PT attempts to minimize imput including gait belt and frequent cues. He has wide HAWK. Stair Climbing Assessment Evaluation Level of Assist On Stairs Standby Assistance,1 Person Assistance Devices Stair Climbing Assistive Devices Left Railing,Right Railing Technique/Endurance Stair Climbing Direction Ascend and Descend Stair Climbing Technique Step Over Step,Step to Step Number of Steps Climbed 3 Query Text: Stair Climbing Set # Repetitions (reps) 3 Comments Stair Climbing Comments Rail with left hand, increased right shoulder pain with stepping PT-Balance Assessment Sitting Balance and Reactions Static Sitting Balance Ability Good Dynamic Sitting Balance Ability Good Standing Balance and Reactions Static Standing Balance Ability Good Dynamic Standing Balance Ability Good M5 PT-IP Objective Assessments Start: 05/04/23 09:29 Freq: NEEDED Status: Active Protocol: Document 05/04/23 10:20 MB (Rec: 05/04/23 10:48 MB [id number]) Orientation Orientation/Cognition Level of Alertness Alert Language Function Ability Expressive Aphasia,Receptive Aphasia Safety Awareness Decreased Safety Awareness Comments It is difficult to comment on orientation d/t pt cannot communicate answers to any questions d/t aphasia Gross Range of Motion Upper Extremity ROM Assessment Right Impaired Impairments Right arm in sling post-op Lower Extremity ROM Assessment Within Functional Limits Strength Upper Extremity Strength Assessment Right Impaired Lower Extremity Strength Assessment Within Functional Limits Comments Strength Comments Cannot MMT right UE Coordination Assessment Gross Coordination Gross Coordination Impaired M7 PT-IP Assessment and Plan Start: 05/04/23 09:29 Freq: NEEDED Status: Active Protocol: Document 05/04/23 10:20 MB (Rec: 05/04/23 10:48 MB [id number]) PT Summary Assessment and Plan Potential Rehabilitation Potential Fair Status of Condition at Evaluation Evolving Summary Impairments Pain,ROM,Strength,Coordination Progress Towards Goals Progressing Toward Goals Assessment Summary Pt is a 57 y/o male presenting with severe aphasia and this makes all communication challenging. He does have more pain in his right shoulder that is in sling with gait and stair training. He has agitation and is able to communicate wanting to leave and to go smoke. He is SBA for transfers and gait including stair training. Nsg reports that his mother is on the way to pick him up. Frequency of Treatment Frequency Of Treatment Discharge Precautions Shoulder Precautions Sling,No External Rotation Other Precautions NWB in sling and no range for 6 weeks Weight Bearing Status Weight Bearing Status Non-Weight Bearing Allowed Weight Bearing Amount (enter % RUE or #) (%) Recommendations To Nursing Amount of Assist Needed 1 Person Assist Discharge Recommendations PT Discharge Recommendations Home with Assistance Other Discharge Recommendations Progress to outpatient PT when ready, may consider having mother go with him to aide with communication Transportation Needs at Discharge Private Vehicle
--- NOTE | 2023-05-04 12:58 | PC.NURSE ---
Day shift: Patient becoming increasingly agitated while waiting for his mother to pick him up this morning. Pacing in the room, asking for cigarettes, using profanity. Reassured patient. Patient's mother arrived and asked for social work for resources as she is tired of taking care of him. She states, he keeps yelling at me on the phone. And I'm done with it. PAULA Del Rio able to provide resources and give support to patient's mother. Discharge instructions gone over with patient and patient's mother. They stated understanding. Patient has all belongings and PIV removed prior to discharge. PCT Haley escorted patient to exit via wheelchair where his mother plans to drive him home.
--- NOTE | 2023-05-04 14:21 | CM.DANOTE ---
Patient is a 57 yo male who was admitted [facility] on 05/03/23 for Right Rotator Cuff Tear and Repair. Pt has [employer] ADV and [employer] for insurance and his PCP is Dr. Enzo Keita. EMR was reviewed. Per Ortho PA, pt tolerated procedure well and to work with PT and then can discharge home. Pt has hx of ETOH use and past CVA with some residual deficits. Per PT, recommending safe d/c home with some family assist and outpt PT and f/u. SW met with pt and mother and then pt somewhat agitated and wanting to go outside to smoke and agreeable to SW meeting with his mother. Mother Helen confirms that pt lives alone in [place] but she and family live nearby and check on him regularly. Pt is mostly independent but has forgetfulness and sometimes unsteady gait and what mother states as lack of motivation and follow through. Pt still drinks alcohol and smokes. Mother has concerns as she states that she herself is getting older and she is 80 years old and feels that pt needs additional assist besides herself. SW provided the Medicaid LTC application as pt is disabled and discussed [facility] vs Adult Family Home/Assisted Living and provided the [employer] contact information for [facility] and encouraged her to meet with [facility] for assist with the application and other possible available resources. Mother agreeable to providing transport home today and following up on LTC options and supports. Plan: Patient to discharge home today via mother POV and outpt f/u and community resources provided and no further SW needs at this time. CRISTINA Mera Discharge Planning/Care Management CM Discharge Assessment Start: 05/04/23 14:19 Freq: Status: Active Protocol: Document 05/04/23 14:19 BF (Rec: 05/04/23 14:21 [id number]) Discharge Planning Assessment Assigned Fitness Technician CRISTINA Del Rio DPOA/Assigned Designee Name informally mother Helen Contact Information [phone] Advance Directives? Yes: General DPOA Advance Directives on File Yes History Provided By Patient,Family Member,Medical Record Has Patient been admitted in last 30 No days? Prior Living Arrangements House Household Members none Comment family lives nearby Type of transporation used prior to Relies on Others admit Independent with ADL's Yes: mostly, hx of ETOH and CVA Is patient alert and oriented? Yes: mostly Needs Assistance With Meal Prep,Home Chores / Shopping Caregiver for Another No Community Services used prior to Physical Therapy admission: Patient/Family Preference OP PT Therapy Barriers to Discharge No Discharge Plan Home Community Services Physical Therapy Referrals Initiated Medicaid Application Additional Comment Provided mother with the LTC/ Disabled Medicaid application towards [facility] vs [facility] Whiteboard Updated in Patient Room with Yes name and ext. # of Fitness Technician Review Status In Process Please Provide Date Initial DC 05/04/23 Assessment Was Performed Next Review Type Continued Stay Review Pre-Anesthesia Assessment Start: 05/01/23 12:31 Freq: Status: Discharge Protocol: Document 05/01/23 12:31 [facility] (Rec: 05/01/23 12:40 [facility] [id number]) Pre-Anesthesia Assessment Patient Information Reviewed Via Chart Review Primary Care Provider Enzo Keita Seen Specialist in Last 12 Months Yes Specialist Seen Emergency,Orthopedist Primary Language Bengali Preferred Language Bengali Height 187.96 cm Weight 129.274 kg Body Mass Index (BMI) 36.6 Hearing Ability Hearing Impaired Barriers to Learning Language Comment Hx of stroke, significant speech loss Anesthesia Review Requested No Fresh Meat Grader No alcohol intake current Smoking Status Current every day smoker Tobacco type cigarettes Substance Use Type does not use Pain Present Pain Reported Musculoskeletal Symptoms Limited Range of Motion Patient is completely paralyzed or No completely immobile Mental Status Oriented to own ability Is patient on oxygen? No Hx Sleep Apnea No Currently Taking a Beta Margot No Anti-Coagulant Therapy No Cardiac Testing No Hx Pacemaker/ICD No Pacemaker Rep Required? No Urinary Catheter Present No Hx Urinary Self Catheterization No Diabetes Yes HgbA1C 6.8 Date 04/14/23 Presence of External or Internal Medical No Devices Received a COVID vaccine? No Marital Status Single Lives With friend(s) Patient Discharge Plan Description Return Home Do You Have Any Spiritual Beliefs That No May Affect Your HC Choices? Do You Have Any Cultural Practices That No May Affect Your HC Choices? Emergency Contact Name Helen Perez Emergency Contact Advance Directives? Yes: General DPOA
--- NOTE | 2023-05-04 14:54 | PC.NURSE ---
After discharge, patient's mom called and asked to speak with this RN. She reported that patient fell in the parking lot. She reported that after he got in her car, he got his cigarettes and then walked across the ER parking lot and up the cement hill on the west side of the lower lot to smoke. When he was finished, she reports he ran down the cement hill. She stated I don't know what possessed him to run down that hill. She stated that he then fell into a parked car and then fell to the ground. She reports he hit his head on the car and both arms on the ground. She reports his left arm is bleeding and that he fell on both arms and she is worried about his right shoulder. I told her that she should take him to the ER and/or call his doctor right away. I told her he should see a doctor to make sure his head and R shoulder are ok. She stated that he is resting in his apartment now and does not want to go to the doctor, but that she will try again. Notified special agent in charge Talia and finance and administration manager Cheri of the incident.
== END 2023-05-04 13:01 | disposition home or self-care (01) ==
LOC: OR 14:41 → AC 14:53
PROVIDERS: Family Provider Family Medicine; PCP Family Medicine; Referring Provider Orthopaedic Surgery; Visit Provider Orthopaedic Surgery
PROC: (CPT 29827; principal; 2023-05-03 13:45)
DX: S46.001A Unspecified injury of muscle(s) and tendon(s) of the rotator cuff of right shoulder, initial encounter (principal); M75.21 Bicipital tendinitis, right shoulder; M25.811 Other specified joint disorders, right shoulder; G89.18 Other acute postprocedural pain; M94.211 Chondromalacia, right shoulder; M65.811 Other synovitis and tenosynovitis, right shoulder
CPT/HCPCS: 29823; 29827; 64415; 82962; 85027; 97161; J0171; J0690; J1100; J1170; J2250; J2405; J2704; J3010; J3490

== ENCOUNTER 2023-07-05 11:12 | Emergency (ER) | payer OTHER, MEDICAID, SELFPAY ==
[2023-05-03 18:03] VITALS: BMI 36.2
[2023-07-05 11:18] VITALS: BP 225/111; PULSE 94; RESP 18; TEMP 36.8; O2SAT 99; BMI 35.3
--- NOTE | 2023-07-05 11:22 | DI.RAD.S_ITS ---
PROCEDURE: XR SHOULDER LT MIN 2V INDICATIONS: left shoulder pain TECHNIQUE: 3 views of the shoulder were acquired. COMPARISON: [facility], CR, XR SHOULDER RT MIN 2V, 09/28/2022, 11:15. FINDINGS: Bones: No fractures or dislocations. No suspicious bony lesions. Visualized ribs appear intact. Soft tissues: No suspicious soft tissue calcifications. IMPRESSION: No acute fracture. No osseous lesion. If symptoms and/or clinical suspicion for pathology persist, further assessment with repeat, or advanced imaging (e.g., CT, MRI, or bone scan) may be helpful for further assessment. Dictated by: Rachel Garcia M.D. on 07/05/2023 at 11:44 Approved by: Rachel Garcia M.D. on 07/05/2023 at 11:44
--- NOTE | 2023-07-05 11:38 | ED_ITS ---
HPI - Extremity Injury (Upper) <Esperanza Ferrera PA-C - Last Filed: 07/05/23 16:21> General Chief Complaint: Extremity Injury, Upper Stated Complaint: L/ shoulder pain Time Seen by Provider: 07/05/23 11:25 Source: patient Mode of arrival: Ambulatory History of Present Illness HPI narrative: Is a 57-year-old male whose mother is POA with history of CVA with some deficits, type 2 diabetes, and bilateral shoulder rotator cuff injury with right rotator cuff surgery in the last 2 months patient states that he was doing physical therapy for his right shoulder about 7 days ago and was requested to perform the same activity with his left arm on the left side he said he immediately was having pain in his left shoulder and requested to stop but they encouraged him to continue the activity. Since then he has had persistent constant left shoulder pain which he describes as feeling like it is in the shoulder joint itself and on the front of his shoulder/upper arm. He states the pain does not radiate anywhere and denies chest pain or shortness of breath he does endorse that sometimes the pain is so severe that it does make him feel nauseous. He did see his orthopedic provider on Monday 4 days after the pain began who advised him he should not have any more activity with his left shoulder/arm during physical therapy sessions moving forward; he comes in today with his mother with concern for difficulty sleeping and getting comfortable due to the pain and difficult time finding a good position for his arm 2nd to the pain. Related Data Previous Rx's Medication Instructions Recorded aspirin 81 mg tablet,delayed 81 mg PO DAILY 90 days #90 tabs 01/06/22 release blood-glucose meter,continuous #1 ea 01/06/22 (Dexcom G6 Commission Broker) blood-glucose sensor (Dexcom G6 #3 ea 01/06/22 Sensor device) blood-glucose transmitter (Dexcom #1 ea 01/06/22 G6 Transmitter device) lancets 33 gauge (BD Ultra Fine #100 ea 01/06/22 Lancets) Diabetic shoes size 12W no. 38 #1 ea 12/20/22 with diabetic inserts metformin 500 mg tablet,extended 1,000 mg (2 x 500 mg) PO DAILY 01/17/23 release 24hr blood sugars #180 tabs mupirocin 2 % topical ointment 1 applic topical TID #15 grams 09/21/23 blood sugar diagnostic (Blood #100 ea 03/09/23 Glucose Test strips) blood sugar diagnostic (True #100 ea 03/10/23 Metrix Glucose Test Strip) blood-glucose meter (True Metrix #1 ea 03/10/23 Glucose Meter) one touch Delica Plus lancets Fine #1 ea 03/27/23 30g atorvastatin 80 mg tablet See Rx Instructions .Route 04/03/23 .COMPLEX #90 tabs amlodipine 2.5 mg tablet (Norvasc) 2.5 mg PO DAILY blood pressure #90 04/18/23 tabs hydrocodone 5 mg-acetaminophen 325 1 tab PO Q6H PRN pain #20 tabs 05/03/23 mg tablet ibuprofen 600 mg tablet 600 mg PO Q6H PRN pain #60 tabs 05/03/23 ondansetron HCl 4 mg tablet 4 mg PO Q8H PRN nausea and 05/03/23 vomiting #10 tabs insulin glargine 100 unit/mL (3 47 unit (0.47 mL) SUBCUT DAILY #45 05/08/23 mL) subcutaneous pen (Lantus mL Solostar U-100 Insulin) pen needle, diabetic 32 gauge x #100 ea 05/08/23 5/32 (Droplet Pen Needle) empagliflozin 10 mg tablet 10 mg PO DAILY for diabetes 06/19/23 (Jardiance) mellitus #90 tabs lisinopril 40 mg tablet 40 mg PO DAILY blood pressure #90 06/19/23 tabs hydrocodone 5 mg-acetaminophen 325 1 tab PO Q8H PRN pain #9 tabs 07/05/23 mg tablet lidocaine 5 % topical patch 1 patch topical DAILY 15 days #15 07/05/23 ea Allergies Allergy/AdvReac Type Severity Reaction Status Date / Time No Known Drug Allergies Allergy Verified 05/03/23 14:04 Review of Systems <Esperanza Ferrera PA-C - Last Filed: 07/05/23 16:21> Review of Systems Narrative: See HPI Patient History <Esperanza Ferrera PA-C - Last Filed: 07/05/23 16:21> Medical History Type 2 diabetes mellitus with diabetic polyneuropathy Aphasia Tobacco dependence Foot ulcer due to secondary DM Hyperlipidemia Benign essential HTN Type 2 diabetes mellitus with foot ulcer, with long-term current use of insulin Hearing loss Stroke (~04/2021) Acne Cellulitis Surgical History Anesthesia History of tonsillectomy and adenoidectomy (~1970) Family History Father Alcohol abuse Sister Heart palpitations Hypertension Grandfather Diabetes mellitus Grandmother No problems noted. Social History household members: none Smoking Status: Current every day smoker Tobacco: How many years used: 40 alcohol intake: current substance use type: does not use Smoking Status: Current every day smoker tobacco type: cigarettes alcohol intake frequency: 3 or more drinks per day Alcohol type: hard liquor Substance Use Type: does not use Exam <Esperanza Ferrera PA-C - Last Filed: 07/05/23 16:21> Narrative Exam Narrative: GENERAL: [57] year old patient appears stated age. Well-developed patient, in mild distress; clear speech but some occasional word swapping (saying school instead of sleep), which is baseline for patient since his CVA. HEAD: Atraumatic. Normocephalic. EYES: Pupils equal round and reactive. Extraocular motions intact. No scleral icterus. No injection or drainage. ENT: Nose without bleeding, purulent drainage. Airway patent. NECK: Trachea midline. Non tender CARDIOVASCULAR: Regular rate and rhythm without murmurs, gallops, or rubs. RESPIRATORY: Clear to auscultation. Breath sounds equal bilaterally. No wheezes, rales, or rhonchi. GASTROINTESTINAL: Abdomen soft, non-tender, nondistended. EXTREMITIES: Laboratory Tech strength in the left hand is 4/5, there is tenderness palpation over the biceps tendon in the anterior deltoid. No bruising noted. Patient has mild increased shoulder pain with passive supination pronation, as well as flexion at the elbow. He has significant pain with active flexion at the elbow, and attempts at abduction of his left arm. Negative scarf sign. There is no tenderness over the scapula or the AC junction. No other edema or joint tenderness. BACK: Nontender without deformity or crepitance. No flank tenderness. NEURO: AOx3. Ambulates without difficulty. SKIN: No rash or erythema of visible areas Initial Vital Signs Initial Vital Signs: Vital Signs Temperature 98.3 F 07/05/23 11:18 Pulse Rate 94 H 07/05/23 11:18 Respiratory Rate 18 07/05/23 11:18 Blood Pressure 225/111 H 07/05/23 11:18 Pulse Oximetry 99 07/05/23 11:18 Oxygen Delivery Method Room Air 07/05/23 11:18 <Kay Mccormack MD - Last Filed: 07/05/23 16:25> Initial Vital Signs Initial Vital Signs: Vital Signs Temperature 98.3 F 07/05/23 11:18 Pulse Rate 94 H 07/05/23 11:18 Respiratory Rate 18 07/05/23 11:18 Blood Pressure 225/111 H 07/05/23 11:18 Pulse Oximetry 99 07/05/23 11:18 Oxygen Delivery Method Room Air 07/05/23 11:18 Course <Esperanza Ferrera PA-C - Last Filed: 07/05/23 16:21> Orders Ordered: ED Orders 07/05/23 11:22 XR shoulder LT min 2V Stat Discontinued Medications Amlodipine Besylate (Amlodipine 5 Mg Tablet) 2.5 mg PO NOW ONE Stop: 07/05/23 11:40 Last Admin: 07/05/23 11:50 Dose: 2.5 mg Documented By: RB Ketorolac Tromethamine (Ketorolac 30 Mg/Ml Vial) 30 mg IM NOW ONE Stop: 07/05/23 11:55 Last Admin: 07/05/23 11:59 Dose: 30 mg Documented By: RB Lisinopril (Lisinopril 20 Mg Tablet) 40 mg PO NOW ONE Stop: 07/05/23 11:55 Last Admin: 07/05/23 11:56 Dose: 40 mg Documented By: RB Vital Signs Vital signs: Vital Signs - 8 hr 07/05/23 11:18 07/05/23 11:39 07/05/23 11:56 Temperature 98.3 F Pulse Rate 94 H 92 H Pulse Rate [Left Radial] 88 Respiratory Rate 18 Blood Pressure 225/111 H 215/105 H Pulse Oximetry 99 Oxygen Delivery Method Room Air 07/05/23 12:48 Temperature 98.1 F Pulse Rate 87 Pulse Rate [Left Radial] Respiratory Rate 18 Blood Pressure 158/93 H Pulse Oximetry 100 Oxygen Delivery Method Room Air <Kay Mccormack MD - Last Filed: 07/05/23 16:25> Orders Ordered: ED Orders 07/05/23 11:22 XR shoulder LT min 2V Stat Discontinued Medications Amlodipine Besylate (Amlodipine 5 Mg Tablet) 2.5 mg PO NOW ONE Stop: 07/05/23 11:40 Last Admin: 07/05/23 11:50 Dose: 2.5 mg Documented By: RB Ketorolac Tromethamine (Ketorolac 30 Mg/Ml Vial) 30 mg IM NOW ONE Stop: 07/05/23 11:55 Last Admin: 07/05/23 11:59 Dose: 30 mg Documented By: RB Lisinopril (Lisinopril 20 Mg Tablet) 40 mg PO NOW ONE Stop: 07/05/23 11:55 Last Admin: 07/05/23 11:56 Dose: 40 mg Documented By: RB Vital Signs Vital signs: Vital Signs - 8 hr 07/05/23 11:18 07/05/23 11:39 07/05/23 11:56 Temperature 98.3 F Pulse Rate 94 H 92 H Pulse Rate [Left Radial] 88 Respiratory Rate 18 Blood Pressure 225/111 H 215/105 H Pulse Oximetry 99 Oxygen Delivery Method Room Air 07/05/23 12:48 Temperature 98.1 F Pulse Rate 87 Pulse Rate [Left Radial] Respiratory Rate 18 Blood Pressure 158/93 H Pulse Oximetry 100 Oxygen Delivery Method Room Air MDM - Extremity Injury (Upper) <Esperanza Ferrera PA-C - Last Filed: 07/05/23 16:21> Differential Diagnosis Differential diagnosis: Likely dislocation of shoulder and other (Muscle strain, muscle spasm, rotator cuff injury) Imaging Data Extremity x-ray #1: My Impression: Agree with Radiology interpretation Radiologist's Impression: [address] [address] XRay Report Signed Patient: Alexander Sterling MR#: [id number] : 1965 Acct:[id number] Age/Sex: 57 / M Date of Service: 07/05/23 Loc: ED Accession Number: [id number] Procedure: XR shoulder LT min 2V Ordering Provider: Kay Mccormack MD PROCEDURE: XR SHOULDER LT MIN 2V INDICATIONS: left shoulder pain TECHNIQUE: 3 views of the shoulder were acquired. COMPARISON: [facility], CR, XR SHOULDER RT MIN 2V, 09/28/2022, 11:15. FINDINGS: Bones: No fractures or dislocations. No suspicious bony lesions. Visualized ribs appear intact. Soft tissues: No suspicious soft tissue calcifications. IMPRESSION: No acute fracture. No osseous lesion. If symptoms and/or clinical suspicion for pathology persist, further assessment with repeat, or advanced imaging (e.g., CT, MRI, or bone scan) may be helpful for further assessment. Dictated by: Rachel Garcia M.D. on 07/05/2023 at 11:44 Approved by: Rachel Garcia M.D. on 07/05/2023 at 11:44 [facility] Narrative Medical decision making narrative: This is a 57-year-old male with history of CVA, type 2 diabetes, hypertension with some persistent speech deficits presents with his mother today who is his POA with concern for left shoulder pain that has been present for about a week since it began hurting during physical therapy session. His exam/hx is consistent with musculoskeletal injury and cardiac workup is not pursued. X-ray imaging of the left shoulder shows no acute abnormality. His exam is consistent with muscle strain, he does have tenderness of the left anterior deltoid and biceps tendon region, he also has reduced range of motion and pain consistent with acute on chronic rotator cuff injury. Patient was quite hypertensive on presentation to the emergency department which I suspect is a combination of him not having taken his morning hypertension medications and the fact that he has been in pain. His blood pressure elevation did resolve to a blood pressure systolic of 158 prior to discharge, after we gave him his morning medications and he also received Toradol IM in the emergency department. Prescription today for short course of hydrocodone, lidocaine patch, sling for the left arm as his pain is worse with moving it, and strongly encouraged to follow up closely with his PCP and his orthopedic provider whom he actually saw this week since the pain began. Return precautions provided, follow-up plan discussed, all questions answered. Discharge Plan Departure Patient Disposition: Home Clinical Impression: Strain of left deltoid muscle Qualifiers: Encounter type: initial encounter Qualified Code(s): S46.812A - Strain of other muscles, fascia and tendons at shoulder and upper arm level, left arm, initial encounter Rotator cuff arthropathy Qualifiers: Laterality: left Qualified Code(s): M12.812 - Other specific arthropathies, not elsewhere classified, left shoulder Activity Restrictions/Additional Instructions: *You have been diagnosed with [shoulder strain, rotator cuff arthropathy] *What to do: *Please continue to take your regular medications as directed. [2 ] New medication prescriptions sent to your pharmacy: [Lidocaine patch, hydrocodone] [ ] New medication written as a paper prescription [ ] No new medications given *Please follow up with your primary care provider in 2-3 days, call for an appointment. Let them know you were seen in the Emergency Department and that we ask that you be seen in follow up. We will electronically transmit a record of today's note if your PCP is in our system. You came in today with concern for about a week of left shoulder pain since her physical therapy session last week. Based on your exam I do suspect that you have a strain/sprain of your left shoulder/deltoid muscle possibly biceps tendon. You also have some chronic rotator cuff problems on the left and I suspect that your activity last week exacerbated this. Your pain did improve today with Toradol medication that you got we also gave you your morning dose of your antihypertensive medication as her blood pressure was high and you had not yet taken her medicines today. We placed him in a sling for her left shoulder as I think minimizing use of your left shoulder is going to be helpful for this to heal however I anticipate it may take some time to get better. I strongly recommend you see your primary care provider or orthopedic doctor again for recheck especially if your pain is not improving over the next few days. He should try taking Tylenol and ibuprofen for pain before using the hydrocodone and only use this if needed. *If you do not have a primary care provider please contact the [facility] Resource line at [phone]. They will ask some questions about your medical history and help get you set up with a doctor in the community. *Return to Emergency Department if you should have any new, worsening or concerning symptoms, such as [fever greater than 101 F, shaking chills, worsening pain, persistent vomiting or other bothersome symptoms] Prescriptions: New lidocaine 5 % adhesive patch,medicated 1 patch topical DAILY 15 Days Qty: 15 1RF Rx Instructions: leave on most painful area for up to 12 hrs hydrocodone-acetaminophen 5-325 mg tablet 1 tab PO Q8H PRN (Reason: pain) Qty: 9 0RF No Action (DME) Diabetic shoes size 12W no. 38 with diabetic inserts See Rx Instructions .Route .MEDSUPPLY Qty: 1 0RF Rx Instructions: As directed mupirocin 2 % ointment 1 applic topical TID Qty: 15 11RF (DME) Blood Glucose Test Strip See Rx Instructions .ROUTE .MEDSUPPLY Qty: 100 6RF Rx Instructions: Use to test blood glucose twice daily. (DME) blood-glucose meter [True Metrix Glucose Meter] [facility] See Rx Instructions .Route Qty: 1 0RF Rx Instructions: As directed ([facility]) True Metrix Glucose Test Strip Strip See Rx Instructions .Route Qty: 100 1RF Rx Instructions: test glucose level twice daily, ss directed (DME) one touch Delica Plus lancets Fine 30g See Rx Instructions .Route .MEDSUPPLY Qty: 1 0RF Rx Instructions: use to test blood glucose two times a day. atorvastatin 80 mg tablet See Rx Instructions .ROUTE .COMPLEX Qty: 90 3RF Dose Instruction: TAKE ONE TABLET BY MOUTH NIGHTLY AT BEDTIME Rx Instructions: TAKE ONE TABLET BY MOUTH NIGHTLY AT BEDTIME Lantus Solostar U-100 Insulin 100 unit/mL (3 mL) insulin pen 47 unit SUBCUT DAILY Qty: 45 4RF (DME) pen needle, diabetic [Droplet Pen Needle] 32 gauge x 5/32 needle See Rx Instructions .ROUTE .COMPLEX Qty: 100 8RF Dose Instruction: USE TO ADMINISTER LANTUS ONCE DAILY Rx Instructions: USE TO ADMINISTER LANTUS ONCE DAILY lisinopril 40 mg tablet 40 mg PO DAILY Qty: 90 3RF Jardiance 10 mg tablet 10 mg PO DAILY Qty: 90 0RF metformin 500 mg tablet extended release 24hr 1,000 mg PO DAILY Qty: 180 3RF amlodipine [Norvasc] 2.5 mg tablet 2.5 mg PO DAILY Qty: 90 3RF (DME) lancets [BD Ultra Fine Lancets] 33 gauge misc See Rx Instructions .ROUTE .MEDSUPPLY Qty: 100 6RF Rx Instructions: Use to test blood glucose twice daily (DME) Dexcom G6 Commission Broker Misc See Rx Instructions .ROUTE .MEDSUPPLY Qty: 1 0RF Rx Instructions: USE FOR CONTINUOUS BLOOD GLUCOSE MONITORING. REPLACE EVERY YEAR (DME) Dexcom G6 Transmitter Device See Rx Instructions .ROUTE .MEDSUPPLY Qty: 1 3RF Rx Instructions: USE FOR CONTINUOUS BLOOD GLUCOSE MONITORING. REPLACE EVERY 90 DAYS. (DME) Dexcom G6 Sensor Device See Rx Instructions .ROUTE .MEDSUPPLY Qty: 3 12RF Rx Instructions: As directed aspirin 81 mg tablet,delayed release (DR/EC) 81 mg PO DAILY 90 Days Qty: 90 4RF hydrocodone-acetaminophen 5-325 mg tablet 1 tab PO Q6H PRN (Reason: pain) Qty: 20 0RF ondansetron HCl 4 mg tablet 4 mg PO Q8H PRN (Reason: nausea and vomiting) Qty: 10 0RF ibuprofen 600 mg tablet 600 mg PO Q6H PRN (Reason: pain) Qty: 60 0RF Referrals: Enzo Keita DO [Primary Care Provider] - Stand Alone Forms: Patient Portal/API ED Sign-out <Kay Mccormack MD - Last Filed: 07/05/23 16:25> Cosign ED Attending Cosignature Attestation: I did not see this patient. I was available all times for consultation.
[2023-07-05 11:39] VITALS: PULSE 88
[2023-07-05] MEDS: AMLODIPINE 5 MG TABLET 2.5 MG PO (11:50)
[2023-07-05 11:56] VITALS: BP 215/105; PULSE 92
[2023-07-05] MEDS: lisinopriL 20 MG TABLET 40 MG PO (11:56)
[2023-07-05] MEDS: KETOROLAC 30 MG/ML VIAL IM (11:59)
[2023-07-05 12:48] VITALS: BP 158/93; PULSE 87; RESP 18; TEMP 36.7; O2SAT 100
== END 2023-07-05 12:55 | disposition home or self-care (01) ==
PROVIDERS: Emergency Provider Student in an Organized Health Care Education/Training Program; Family Provider Family Medicine; PCP Family Medicine
DX: S46.812A Strain of other muscles, fascia and tendons at shoulder and upper arm level, left arm, initial encounter (principal); M12.812 Other specific arthropathies, not elsewhere classified, left shoulder
CPT/HCPCS: 73030; 96372; 99283; 99284; J1885

== ENCOUNTER → 2023-07-21 11:01 | Outpatient (CLI) | payer OTHER, MEDICAID, SELFPAY ==
[2023-05-03 18:03] VITALS: BMI 36.2
[2023-07-21 12:42] LABS: Hemoglobin A1C% w Est Avg Glu 5.9 % (4.0-6.0)
== END ==
PROVIDERS: Family Provider Family Medicine; PCP Family Medicine; Referring Provider Family Medicine; Visit Provider Family Medicine
DX: E11.42 Type 2 diabetes mellitus with diabetic polyneuropathy (principal); Z79.4 Long term (current) use of insulin
CPT/HCPCS: 36415; 83036

== ENCOUNTER → 2023-08-01 11:36 | Outpatient (CLI) | payer OTHER, MEDICAID, SELFPAY ==
[2023-05-03 18:03] VITALS: BMI 36.2
--- NOTE | 2023-08-01 11:37 | DI.MRI.S_ITS ---
PROCEDURE: MR SHOULDER LT WO CON INDICATIONS: Rotator cuff tear or rupture of left shoulder TECHNIQUE: Noncontrast oblique coronal T2 fast spin echo with fat saturation, oblique sagittal T1 spin echo and T2 fast spin echo with fat saturation, axial T1 spin echo and T2 fast spin echo with fat saturation through the shoulder. COMPARISON: [facility], CR, XR SHOULDER LT MIN 2V, 07/05/2023, 11:33. FINDINGS: Image quality: Excellent. Rotator cuff: Moderate T2 signal elevation diffusely throughout the supraspinatus and infraspinatus tendons at the humeral insertion sites extending to the musculotendinous junctions. Superimposed full-thickness tearing of the mid and anterior supraspinatus tendon at the humeral insertion site measuring roughly 15 mm anteroposterior. Low-grade intrasubstance tearing of the posterior supraspinatus tendon at the humeral insertion site. Low-grade intrasubstance and articular surface tearing of the anterior and mid infraspinatus tendon at the humeral insertion site. Low-grade intrasubstance and articular surface tearing of the mid and upper subscapularis tendon at the humeral insertion site. There is high-grade intrasubstance and articular surface tearing of the lower subscapularis tendon at the humeral insertion site. Teres minor is intact. No rotator cuff atrophy. Bones and bursae: No bone marrow contusions or fractures. Moderate glenohumeral and acromioclavicular joint degeneration. The acromion demonstrates conventional anatomy, without an os acromiale. No pathologic subacromial-subdeltoid or subcoracoid bursal fluid is present. Capsule and soft tissues: There is diffuse degenerative fraying of the glenoid labrum. The long head of the biceps tendon demonstrates partial-thickness tearing. The rotator interval appears normal, without fibrosis. The coracohumeral ligament is normal in thickness. IMPRESSION: 1. Full-thickness and partial-thickness tearing of the supraspinatus tendon. 2. Partial-thickness tearing of the subscapularis and infraspinatus tendons. 3. Acromioclavicular and glenohumeral joint osteoarthritis. 4. Partial thickness biceps tendon tear. 5. Degenerative fraying of the glenoid labrum. Dictated by: Rachel Garcia M.D. on 08/01/2023 at 15:58 Approved by: Rachel Garcia M.D. on 08/01/2023 at 16:11
== END ==
PROVIDERS: Family Provider Family Medicine; PCP Family Medicine; Referring Provider Orthopaedic Surgery; Visit Provider Orthopaedic Surgery
DX: M75.122 Complete rotator cuff tear or rupture of left shoulder, not specified as traumatic (principal); M19.012 Primary osteoarthritis, left shoulder; S46.112A Strain of muscle, fascia and tendon of long head of biceps, left arm, initial encounter
CPT/HCPCS: 73221

== ENCOUNTER 2023-09-15 08:53 | Day surgery (SDC) | payer MEDICARE, MEDICAID, SELFPAY ==
[2023-05-03 18:03] VITALS: BMI 36.2
[2023-09-05 09:54] VITALS: BMI 34.7
[2023-09-15] VITALS (7 sets, daily range): BP systolic 112–172; BP diastolic 62–97; PULSE 66–74; RESP 11–16; TEMP 36.2–36.9; O2SAT 94–98; BMI 34.7
[2023-09-15] MEDS: ACETAMINOPHEN 325 MG TABLET 975 MG PO (10:05)
[2023-09-15] MEDS: LACTATED RINGERS 1,000 ML 42 ML IV ×2 (10:07→11:47)
--- NOTE | 2023-09-15 10:13 | PM.PREOP ---
Pre-operative Note Interval Note History & Physical reviewed/Exam performed by Physician: Yes Changes to H&P: No
[2023-09-15] MEDS: CEFAZOLIN VIAL 3 GM in SODIUM CHLORIDE 0.9% 100 ML IV (10:45)
[2023-09-15] MEDS: TRANEXAMIC ACID 1,000 MG VIAL 1000 MG INJ (11:17)
[2023-09-15] MEDS: BUPIVACAINE 0.25% (PF) 30 ML, EPINEPHrine 0.15 MG INJ (11:17)
--- NOTE | 2023-09-15 11:23 | SUR.OPER ---
Lateral on padded OR bed with bragg bag positioner, head on pillow, gel axillary roll in place, bottom leg bent with gel pad under knee to foot, upper leg straight and supported with pillows. Operative arm secured in shoulder positioning suspension device. non-operative arm secured on padded arm board. Safety belt at hip, tape over blanket securing lower legs.
--- NOTE | 2023-09-15 12:31 | PM.OP.1 ---
Operative Date/Time/Diagnoses Date of procedure: 09/15/23 Time of procedure: 12:32 Pre-op diagnosis: Left rotator cuff tear Post-op diagnosis: same Procedure & Clinicians Procedure: 1. Left rotator cuff repair 2. Biceps tenodesis 3. Extensive debridement 4. Subacromial decompression and acromioplasty Same procedure as scheduled: Yes Indications: Indications: Alexander Has a history of left shoulder pain. Has had no response thus far to nonoperative treatment. We discussed at length that surgery for a rotator cuff tear is primarily for pain and no guarantees were made regarding strength and range of motion. Patient was again explained the risks, benefits and alternatives to surgery. All questions were answered. The patient wished to proceed. Surgeon: Bert Ayala Operative Notes Findings: Findings: Glenohumeral joint-[mild signs of osteoarthritis with grade 2 chondromalacia. There is degenerative changes noted to the labrum anteriorly and posteriorly] Biceps tendon: [Partial tears with synovitis and erythema throughout] Subscapularis: Intact Inferior capsule: Intact Rotator cuff: The supraspinatus had a complete tear at the footprint anterior Subacromial space: Extensive synovitis, acromial spur noted Closure Type: primary Specimen(s): none sent Prosthetic devices, grafts, tissues, transplants, or devices: Knotless FiberTak x3 Estimated Blood Loss (mL): 10 Blood products transfused: none Procedure in detail: The patient was seen preoperatively. Risks and benefits were explained, and my initials were marked on the left shoulder. A block was performed by anesthesia. The patient was brought to the operating room and placed supine on the operating table and underwent smooth induction of general anesthesia. There were then placed into a lateral decubitus position. 2 g of Ancef were given intravenously prior to the start of the operation, and 1 g of TXA was also given. The arm was prepped and draped in the standard sterile fashion using chlorhexidine. Appropriate drying time was observed. Before beginning the procedure, a time-out was performed and again my initials were confirmed the correct left side. 15 cc of 0.25% Marcaine with epinephrine were injected into the subacromial space prior to start. A standard posterior portal was then established. On entering the glenohumeral joint there was the above-noted cartilage pathology. An anterior portal was established outside in. In the glenohumeral joint, the biceps was noted to be partially torn and erythematous and the subscapularis was intact. The undersurface of the rotator cuff was torn at the footprint and was noted to be communicating. The inferior capsule was noted to be intact. There was some labral degeneration noted both anterior and posterior. Extensive synovitis noted. Biceps long head was noted to be frayed and irritated with partial tears. For this reason, the decision was made to perform a biceps tenodesis. A FiberWire was used to luggage tag the tendon with a separate loop made proximal to the tag for a loop and tack tendon capture.The sutures were then placed into a knotless anchor in the bicipital groove adjacent to the lesser tuberosity for a secure repair. The labral tissue was examined, it was noted to have [id number] degenerative changes with fraying and tearing. There was subsequent expected degenerative changes in synovitis along the anterior articular capsule and a reflection of the capsule onto the glenoid bone. There were synovitic changes at the biceps tendon and its anchor on the supraglenoid tubercle. For these aforementioned reasons, arthroscopic debridement was performed with a 4.0 mm shaver, through the anterior portal, of the labral tissue, the articular capsule, biceps anchor complex, and glenoid bone. We then established into the subacromial space and a lateral portal was made. A bursectomy was then performed. The coracoclavicular ligament was minimally released off the anterior acromion and a gentle acromioplasty was performed enough for better visualization and to remove significant spurs. This was done with a 4.0 mm shaver and transformed the acromion from a type 2 acromion into a type 1 acromion. Once bursectomy, acromioplasty was performed we had full visualization of the rotator cuff. It was noted at this time that the patient had complete 1 cm tear of the anterior margin of the supraspinatus. We then freshened up the footprint with a shaver and debrided the cuff tear edges. Two medial row Anchors were placed. I then passed sequentially from anterior to posterior. I used the knotless mechanism to create a secure medial row single row repair. The wounds were closed with nylon and dressed with Xeroform, 4x4s, ABDs and they were placed into a sling. Patient was woken from anesthesia and transported to recovery unit without any complications. Complications: none Post-operative Condition: stable Disposition: PACU Plan for aftercare: Postoperatively patient will be nonweightbearing to the operative extremity. Must remain in a sling for 6 weeks with no active range of motion. Okay for dressings to come off in 3 days, take a shower with warm soap and water and then placed Band-Aids over the wounds. After a total of 5 days from surgery all dressings may come off. Keep follow-up appointment in 2 weeks.
== END 2023-09-15 13:15 | disposition home or self-care (01) ==
PROVIDERS: Family Provider Family Medicine; PCP Family Medicine; Referring Provider Orthopaedic Surgery; Visit Provider Orthopaedic Surgery
PROC: (CPT 29827; principal; 2023-09-15 10:15)
DX: M75.112 Incomplete rotator cuff tear or rupture of left shoulder, not specified as traumatic (principal); M75.22 Bicipital tendinitis, left shoulder; M75.42 Impingement syndrome of left shoulder; M65.812 Other synovitis and tenosynovitis, left shoulder; M94.212 Chondromalacia, left shoulder; M19.012 Primary osteoarthritis, left shoulder; M77.8 Other enthesopathies, not elsewhere classified; M25.712 Osteophyte, left shoulder; S46.112A Strain of muscle, fascia and tendon of long head of biceps, left arm, initial encounter; G89.18 Other acute postprocedural pain
CPT/HCPCS: 29827; 29828; 29823; 29826; 64415; 82962; J0171; J0330; J0690; J1100; J2405; J2704; J3010

== ENCOUNTER → 2023-10-24 14:05 | Outpatient (CLI) | payer MEDICARE, MEDICAID, SELFPAY ==
[2023-05-03 18:03] VITALS: BMI 36.2
[2023-10-24 15:36] LABS: Hemoglobin A1C% w Est Avg Glu 5.9 % (4.0-6.0)
[2023-10-24 15:52] LABS: BUN Creatinine Ratio 23.5 (6-22); Blood Urea Nitrogen 20 mg/dL (9-20); Carbon Dioxide 27 mmol/L (22-32); Chloride 104 mmol/L (98-107); Estimated Glomerular Filt Rate > 60 mL/min (>60); Glucose 134 mg/dL (70-100); HEMOLYSIS < 15 (0-50); Potassium 4.2 mmol/L (3.4-5.1); Sodium 139 mmol/L (137-145)
[2023-10-24 17:50] LABS: HIV 1 & 2 Ab/Ag 4th Gen Combo NEGATIVE (NEGATIVE); Hep C Virus Ab w/Reflex Quant NEGATIVE s/c (NEGATIVE)
== END ==
PROVIDERS: Family Provider Family Medicine; PCP Family Medicine; Referring Provider Family Medicine; Visit Provider Family Medicine
DX: Z11.4 Encounter for screening for human immunodeficiency virus [HIV] (principal); E11.29 Type 2 diabetes mellitus with other diabetic kidney complication; Z11.59 Encounter for screening for other viral diseases; R80.9 Proteinuria, unspecified; I10 Essential (primary) hypertension; E83.52 Hypercalcemia
CPT/HCPCS: 36415; 80048; 83036; 86803; 87389

== ENCOUNTER 2023-11-14 14:30 | Outpatient (RCR) | payer MEDICARE, OTHER, MEDICAID, SELFPAY ==
[2022-09-28 11:06] VITALS: BMI 35.7
--- NOTE | 2023-02-21 11:31 | ST.OP.ACL ---
Visit Care Team Role Provider Type Enzo Keita DO Attending Provider Physician Family Provider Primary Care Provider Referring Provider Specialty: Family Practice Address: [address] [place] [address], [address], [address] Email: [email or web address] Adult Cognitive Linguistic Evaluation [employer] Adult Cognitive Linguistic Eval Start: 02/16/23 14:38 Freq: Status: Active Protocol: Document 02/16/23 14:39 CG (Rec: 02/16/23 15:11 CG [id number]) Adult Cognitive Linguistic Evaluation Session Time Visit Start Time 13:30 Visit Stop Time 14:30 Total Visit Minutes 60 Visit Information Visit Number 1 Plan of Care Dates 02/20/23-05/22/23 Insurance Information [employer] Referral Referring Provider Enzo Keita DO Reason for Referral aphasia 2/CVA Setting Assessment Location Outpatient Care Visit Type Note Type Initial evaluation Next Note Type Next Note Type Treatment Note Patient Information Identification Type Name Patient History Alexander is a 57-year-old man with a history of stroke in March of 2021, which the pt states he believes was caused by an adverse reaction to the Covid vaccine. 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 He is here today for an evaluation of aphasia. He was accompanied briefly by his mother, who was here to assist with providing history before leaving for remainder of assessment. Alexander was briefly seen by an MOVIE THEATER USHER at [facility] (Haley Knox MA, -[employer]IE THEATER [employer]HER), where various treatment frameworks were introduced, including The Context-Based Approach for Wernicke's Aphasia, Supported Conversation for Adults with Aphasia, and Phonomotor Treatment. The last treatment note for speech-language therapy was from August 2021. Based on [employer]IE THE[employer]HER notes and doctor' s notes, Alexander's comprehension skills have been gradually increasing, though his verbal expression remains largely impacted by phonemic and semantic paraphasias ( predominantly phonemic). Alexander has not completed any speech- language therapy since the spring. He states that he often uses his phone to help communicate (for example, if he is trying to say a specific place name, he will find it on a [employer] matthew rather than trying to say it). He does have an AAC-type matthew that uses predictive text to assist in communication, but the matthew uses all orthographic representations of language, so Alexander states he does not find this matthew helpful. He has not worked with any other type of AAC in the past. Language(s) Spoken in the Home Slovenian Occupation Status Not working Hearing Hearing Level Normal Vision Vision Status Not Impaired Previous Therapy Previous Speech-Language Therapy Yes History of Therapy Completed speech-language therapy with KIRSTY Velásquez at [facility], until Spring 2021. Tx approaches included SCA, PMT, and Context -Based Approach for Wernicke's Aphasia. Pt learned to utilize whiteboard, gestures, etc to assist with communication. Limited documentation is available of previous tx sessions. Subjective Patient Report The pt presents with fluent, jargon-like speech with appropriate intonation. He is unable to independently provide history, so history was provided by his mother. He was alert, apparently oriented, and cooperative. Alexander ambulated to the evaluation room independently and was agreeable and participative with all evaluation activities. Mental Status Alert,Responsive,Cooperative Assessment Oral Motor Examination Completed Yes: During QAB Results OME during QAB demonstrated oral motor structure/function grossly intact and WFL for speech and swallowing. Informal Assessment Receptive Language Normal No Receptive Language Impairment(s) Comprehension of simple yes/no questions,Comprehension of complex yes/no questions, Picture/Object identification, Reading Expressive Language Normal No Expressive Language Impairment(s) Imitation,Sentence closure/ completion,Confrontation naming,Expression of basic wants/needs,Expression of complex thoughts/ideas,Written expression Pragmatic Language Normal Yes Speech Normal Yes Cognition Normal Yes: Difficult to assess 2/ expressive language impairment . Appears WFL Formal Assessment Standardized Test/Screener Type Quick Aphasia Battery (QAB) Administration Complete Results Word comprehension: 8.75/10.00 Sentence comprehension: 0.83/ 10.00 Word findin.00/10.00 Grammatical construction: 5.00 /10.00 Speech motor programmin.00 /10.00 Repetition: 6.67/10.00 Readin.17/10.00 QAB overall: 4.38/10.00 QAB overall scores between 0. 00 and 4.99 are described as Severe aphasia based on correspondence with Western Aphasia Battery (WAB) scores. Findings/Results Language Function Severely impaired Findings ADDITIONAL INFORMAL ASSESSMENT /OBSERVATIONS: In addition to completing the Quick Aphasia Battery, dynamic assessment with written language was conducted in addition to brief assessment with low-tech AAC. During continued dynamic assessment with naming tasks, the pt was able to name 60% of one-syllable CVC words presented, and this increased given whole-word cues. It appeared that rather than sounding out target words, the pt was comprehending the whole-word cue in a gestalt manner to cue correct production. He demonstrated multiple phonemic paraphasias during this dynamic assessment , including pike for bike and ask for gas. He did benefit from MOVIE THEATER USHER models and was able to correctly produce target words after MOVIE THEATER USHER modeled productions, though these were not necessarily reproduced after a delay. He demonstrated good understanding of pictures/ visual cues and expressed interest in using visuals to help communicate. MOVIE THEATER USHER showed the pt a video of [employer] adult AAC device as an example of how a person with aphasia might use AAC to communicate more effectively. The pt appeared very interested in the idea of trialing AAC. [employer]ATER [employer]HER [facility] the evaluation, and MOVIE THEATER USHER will discuss conducting a free trial with the pt at next appt. Pt demonstrates good awareness of deficits, frequently trying to express that he can say a word sometimes after a model, but that it will come out wrong other times. His recognition of his paraphasias in real-time is limited during production, but he appears aware of when he has misproduced a word based on assessing the listener's ability to understand. Cognitive Communication Deficits Self-awareness of Cognitive- Predictive awareness (able to Communication Deficits predict problem; impact of impairments) Impact on Functioning Activity Limits/Particip.Rest. Mod: General Tasks and Demands Household Tasks Sev: Interpersonal Interactions Education Employment Community Safety Risks Mod: Being Left Alone at Home Sev: Reacting to Emergency Managing Medication Traveling Alone in Community Prognosis Prognosis Fair Based on Comorbidities,Time since onset ,Other (comment) Comment Pt not currently treating other health concerns (HTN, DM2) per MD's notes Plan of Care Speech-Language Treatment Yes Frequency 1x/week Duration 6 months Patient/Caregiver Education Described results of evaluation,Patient expressed understanding of evaluation, Patient expressed agreement with goals and treatment plans Short Term Goals 1. Pt will complete trial of AAC device (low tech or high tech) to determine whether he would benefit from dedicated AAC device. 2. Pt will name CVC words with 80% accuracy independently given treatment with phonologically based approach. 3. Pt will benefit from education re total communication approach/SCA approach for aphasia in order to decrease frustration and increase ability to communicate wants/needs. 4. Given visual input (drawing , picture, pointing), pt will answer basic yes/no questions with 100% accuracy. Senior Care Goals Pt will utilize total communication (verbal, gesture , written, AAC) to communicate wants/needs with communication partners without communication breakdowns in order to increase ability to participate with vocational and recreational activities. Discharge Recommendations Home
--- NOTE | 2023-02-21 11:32 | ST.OPPOC ---
Physical, Occupational & Speech Therapy At [facility] Visit Care Team Role Provider Type Enzo Keita DO Attending Provider Physician Family Provider Primary Care Provider Referring Provider Address: [address] [place] [address], [address], [place], [address] Speech Pathology Plan of Care Plan of Care Dates 02/20/23-05/22/23 Referring Provider Enzo Keita DO Patient History Alexander is a 57-year-old man with a history of stroke in March of 2021, which the pt states he believes was caused by an adverse reaction to the Covid vaccine. 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 He is here today for an evaluation of aphasia. He was accompanied briefly by his mother, who was here to assist with providing history before leaving for remainder of assessment. Alexander was briefly seen by an WATER PURIFIER OPERATOR at [facility] (Haley Knox MA, CF-WATER PURIFIER OPERATOR), where various treatment frameworks were introduced, including The Context-Based Approach for Wernicke's Aphasia, Supported Conversation for Adults with Aphasia, and Phonomotor Treatment. The last treatment note for speech-language therapy was from August 2021. Based on WATER PURIFIER OPERATOR notes and doctor's notes, Alexander's comprehension skills have been gradually increasing, though his verbal expression remains largely impacted by phonemic and semantic paraphasias (predominantly phonemic). Alexander has not completed any speech-language therapy since the spring. He states that he often uses his phone to help communicate (for example, if he is trying to say a specific place name, he will find it on a [employer] matthew rather than trying to say it). He does have an AAC-type matthew that uses predictive text to assist in communication, but the matthew uses all orthographic representations of language, so Alexander states he does not find this matthew helpful. He has not worked with any other type of AAC in the past. Self-awareness of Cognitive- Predictive awareness (abl Communication Deficits General Tasks and Demands Moderate Household Tasks Moderate Interpersonal Interactions Severe Education Severe Employment Severe Community Severe Being Left Alone at Home Moderate Reacting to Emergency Severe Managing Medication Severe Traveling Alone in Community Severe Short Term Goals 1. Pt will complete trial of AAC device (low tech or high tech) to determine whether he would benefit from dedicated AAC device. 2. Pt will name CVC words with 80% accuracy independently given treatment with phonologically based approach. 3. Pt will benefit from education re total communication approach/SCA approach for aphasia in order to decrease frustration and increase ability to communicate wants/needs. 4. Given visual input (drawing, picture, pointing), pt will answer basic yes/no questions with 100% accuracy. Correction Goals Pt will utilize total communication (verbal, gesture, written, AAC) to communicate wants/ needs with communication partners without communication breakdowns in order to increase ability to participate with vocational and recreational activities. Comment: Electronically Signed by: KIRSTY Natarajan 02/21/23 2769 If you are in agreement with this Plan of Care, please return a signed and dated copy. I have reviewed this Plan of Care and certify that the skilled therapy services above are required to meet the patient?s needs. Physician Signature Date Printed Name and Credentials Clinical Instructor Signature Printed Name and Credentials
--- NOTE | 2023-02-21 11:32 | ST-OP ANOTE ---
Physical, Occupational & Speech Therapy At [facility] Speech Therapy Note POC (dated 02/20/23-05/22/23) was sent via [employer] to referring doctor, Enzo Keita DO, requesting signature on 02/21/23 at 11:33am.
--- NOTE | 2023-02-22 16:16 | ST.OPTN ---
Visit Care Team Role Provider Type Enzo Keita DO Attending Provider Physician Family Provider Primary Care Provider Referring Provider Address: [address] [place] [address], [address], [place], [address] DAIRY NUTRITIONIST Treatment Note DAIRY NUTRITIONIST Treatment Note Start: 02/22/23 16:12 Freq: Status: Active Protocol: Document 02/22/23 16:12 CG (Rec: 02/22/23 16:16 CG [id number]) Speech Pathology Treatment Note Session Time Visit Start Time 11:45 Visit Stop Time 12:45 Total Visit Minutes 60 Visit Information Plan of Care Dates 02/20/23-05/22/23 Setting Treatment Setting Outpatient Care Next Note Type Next Note Type Treatment Note General Information Patient History Alexander is a 57-year-old man with a history of stroke in March of 2021, which the pt states he believes was caused by an adverse reaction to the Covid vaccine. 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 He is here today for an evaluation of aphasia. He was accompanied briefly by his mother, who was here to assist with providing history before leaving for remainder of assessment. Alexander was briefly seen by an DAIRY NUTRITIONIST at [facility] (Haley Knox MA, CF-DAIRY NUTRITIONIST), where various treatment frameworks were introduced, including The Context-Based Approach for Wernicke's Aphasia, Supported Conversation for Adults with Aphasia, and Phonomotor Treatment. The last treatment note for speech-language therapy was from August 2021. Based on DAIRY NUTRITIONIST notes and doctor' s notes, Alexander's comprehension skills have been gradually increasing, though his verbal expression remains largely impacted by phonemic and semantic paraphasias ( predominantly phonemic). Alexander has not completed any speech- language therapy since the spring. He states that he often uses his phone to help communicate (for example, if he is trying to say a specific place name, he will find it on a maps matthew rather than trying to say it). He does have an AAC-type matthew that uses predictive text to assist in communication, but the matthew uses all orthographic representations of language, so Alexander states he does not find this matthew helpful. He has not worked with any other type of AAC in the past. Subjective Identification Type Name Objective Short Term Goals 1. Pt will complete trial of AAC device (low tech or high tech) to determine whether he would benefit from dedicated AAC device. 2. Pt will name CVC words with 80% accuracy independently given treatment with phonologically based approach. 3. Pt will benefit from education re total communication approach/SCA approach for aphasia in order to decrease frustration and increase ability to communicate wants/needs. 4. Given visual input (drawing , picture, pointing), pt will answer basic yes/no questions with 100% accuracy. Wood Fuel Pelletizer Goals Pt will utilize total communication (verbal, gesture , written, AAC) to communicate wants/needs with communication partners without communication breakdowns in order to increase ability to participate with vocational and recreational activities. Treatment Activities Began introducing low-tech AAC and working with pt to develop communication binder. Discussed trial with Lingraphica device for high- tech, dedicated AAC device. Assessment Patient Response to Treatment Good Rehab Potential Good Impairments Identified Expressive language,Receptive language,Cognitive communication Assessment of Improvement Pt was highly receptive to working with DAIRY NUTRITIONIST to develop vocabulary set for low-tech AAC binder. He and DAIRY NUTRITIONIST worked together with total communication approach to find vocabulary for preferred foods, drinks, activities, TV networks, and TV shows. DAIRY NUTRITIONIST will laminate picture cards to put in communication binder. Additionally, the pt is amenable to trial of Lingraphica. DAIRY NUTRITIONIST to reach out to pt's mother for help with completing insurance benefits check form to initiate Lingraphica device trial process. Reviewed with Patient Goals Plan Amount of Therapy Recommended 6 Months Frequency of Treatment Once a Week Length of Session 45 Minutes Treatment Emphasis Next Session Continue with AAC development Therapeutic Contents AAC,Cognitive-Linguistic Training,Expressive Language Training,Receptive Language Training Provided Patient/Caregiver Instruction Plan of Care
--- NOTE | 2023-03-02 15:00 | ST-OP ANOTE ---
Physical, Occupational & Speech Therapy At [facility] Speech Therapy Note Pt initially showed up for appt, but had to leave from waiting room due to medical issue (eye swelling/redness). Appt cancelled.
--- NOTE | 2023-03-08 13:07 | ST.OPTN ---
Visit Care Team Role Provider Type Enzo Keita DO Attending Provider Physician Family Provider Primary Care Provider Referring Provider Address: [address] [place] [address], [address], [place], [address] ANGLE SHEARER Treatment Note ANGLE SHEARER Treatment Note Start: 02/22/23 16:12 Freq: Status: Active Protocol: Document 03/08/23 12:59 CG (Rec: 03/08/23 13:06 CG [id number]) Speech Pathology Treatment Note Session Time Visit Start Time 11:45 Visit Stop Time 12:45 Total Visit Minutes 60 Visit Information Visit Number 3 Plan of Care Dates 02/20/23-05/22/23 Setting Treatment Setting Outpatient Care Next Note Type Next Note Type Treatment Note General Information Patient History Alexander is a 57-year-old man with a history of stroke in March of 2021, which the pt states he believes was caused by an adverse reaction to the Covid vaccine. 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 He is here today for an evaluation of aphasia. He was accompanied briefly by his mother, who was here to assist with providing history before leaving for remainder of assessment. Alexander was briefly seen by an ANGLE SHEARER at [facility] (Haley Knox MA, CF-ANGLE SHEARER), where various treatment frameworks were introduced, including The Context-Based Approach for Wernicke's Aphasia, Supported Conversation for Adults with Aphasia, and Phonomotor Treatment. The last treatment note for speech-language therapy was from August 2021. Based on ANGLE SHEARER notes and doctor' s notes, Alexander's comprehension skills have been gradually increasing, though his verbal expression remains largely impacted by phonemic and semantic paraphasias ( predominantly phonemic). Alexander has not completed any speech- language therapy since the spring. He states that he often uses his phone to help communicate (for example, if he is trying to say a specific place name, he will find it on a maps matthew rather than trying to say it). He does have an AAC-type matthew that uses predictive text to assist in communication, but the matthew uses all orthographic representations of language, so Alexander states he does not find this matthew helpful. He has not worked with any other type of AAC in the past. Subjective Identification Type Name Objective Short Term Goals 1. Pt will complete trial of AAC device (low tech or high tech) to determine whether he would benefit from dedicated AAC device. 2. Pt will name CVC words with 80% accuracy independently given treatment with phonologically based approach. 3. Pt will benefit from education re total communication approach/SCA approach for aphasia in order to decrease frustration and increase ability to communicate wants/needs. 4. Given visual input (drawing , picture, pointing), pt will answer basic yes/no questions with 100% accuracy. Funeral Home Assistant Goals Pt will utilize total communication (verbal, gesture , written, AAC) to communicate wants/needs with communication partners without communication breakdowns in order to increase ability to participate with vocational and recreational activities. Treatment Activities Continued instruction in low- tech AAC with mock communication scenarios to practice utilizing device in context. Discussed participation-based vs impairment-based approaches to aphasia to explain focus on AAC vs all impairment-level approaches. Assessment Patient Response to Treatment Good Rehab Potential Good Impairments Identified Expressive language,Receptive language,Cognitive communication Assessment of Improvement Pt stated he went home with AAC picture/word list and was practicing reading each of them aloud. He feels that he is able to say them correctly alone but they start to come out wrong as soon as he tries to speak to another person. It is possible this is due to changes in perception of his own speech, characteristic of Wernicke's aphasia, but unclear. ANGLE SHEARER encouraged pt to audio record himself practicing words alone to assess next session. He expressed that he would like to be able to consistently say words correctly if possible, so as not to rely on AAC necessarily. Unclear if solely using verbal communication is a realistic/ attainable goal, but will continue to assess. Pt was able to utilize communication binder to place a mock restaurant order with ANGLE SHEARER during functional scenario. Additionally, the pt remains amenable to trial of Lingraphica. ANGLE SHEARER reached out to pt's mother for help with completing insurance benefits check form to initiate Lingraphica device trial process, but did not yet hear back. Left note with pt to ask his mother whether she received email. Reviewed with Patient Goals Plan Amount of Therapy Recommended 6 Months Frequency of Treatment Once a Week Length of Session 45 Minutes Treatment Emphasis Next Session Continue with AAC development Therapeutic Contents AAC,Cognitive-Linguistic Training,Expressive Language Training,Receptive Language Training Provided Patient/Caregiver Instruction Plan of Care
--- NOTE | 2023-03-20 16:40 | ST.OPTN ---
Visit Care Team Role Provider Type Enzo Keita DO Attending Provider Physician Family Provider Primary Care Provider Referring Provider Address: [address] [place] [address], [address], [place], [address] APPLICATION SERVICES MANAGER Treatment Note APPLICATION SERVICES MANAGER Treatment Note Start: 02/22/23 16:12 Freq: Status: Active Protocol: Document 03/20/23 16:32 CG (Rec: 03/20/23 16:40 CG [id number]) Speech Pathology Treatment Note Session Time Visit Start Time 13:30 Visit Stop Time 14:20 Total Visit Minutes 50 Visit Information Visit Number 4 Plan of Care Dates 02/20/23-05/22/23 Setting Treatment Setting Outpatient Care Next Note Type Next Note Type Treatment Note General Information Patient History Alexander is a 57-year-old man with a history of stroke in March of 2021, which the pt states he believes was caused by an adverse reaction to the Covid vaccine. 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 He is here today for an evaluation of aphasia. He was accompanied briefly by his mother, who was here to assist with providing history before leaving for remainder of assessment. Alexander was briefly seen by an APPLICATION SERVICES MANAGER at [facility] (Haley Knox MA, CF-APPLICATION SERVICES MANAGER), where various treatment frameworks were introduced, including The Context-Based Approach for Wernicke's Aphasia, Supported Conversation for Adults with Aphasia, and Phonomotor Treatment. The last treatment note for speech-language therapy was from August 2021. Based on APPLICATION SERVICES MANAGER notes and doctor' s notes, Alexander's comprehension skills have been gradually increasing, though his verbal expression remains largely impacted by phonemic and semantic paraphasias ( predominantly phonemic). Alexander has not completed any speech- language therapy since the spring. He states that he often uses his phone to help communicate (for example, if he is trying to say a specific place name, he will find it on a maps matthew rather than trying to say it). He does have an AAC-type matthew that uses predictive text to assist in communication, but the matthew uses all orthographic representations of language, so Alexander states he does not find this matthew helpful. He has not worked with any other type of AAC in the past. Subjective Identification Type Name Objective Short Term Goals 1. Pt will complete trial of AAC device (low tech or high tech) to determine whether he would benefit from dedicated AAC device. 2. Pt will name CVC words with 80% accuracy independently given treatment with phonologically based approach. 3. Pt will benefit from education re total communication approach/SCA approach for aphasia in order to decrease frustration and increase ability to communicate wants/needs. 4. Given visual input (drawing , picture, pointing), pt will answer basic yes/no questions with 100% accuracy. Skilled Nursing Goals Pt will utilize total communication (verbal, gesture , written, AAC) to communicate wants/needs with communication partners without communication breakdowns in order to increase ability to participate with vocational and recreational activities. Treatment Activities Continued instruction in low- tech AAC with use of total communication approach to discuss basic activities with novel APPLICATION SERVICES MANAGER present in room ( James Berg). Pt's mother, who is his laboratory animal care veterinarian, came into the beginning of the session to discuss AAC trial with Laurie and discuss needed information to initiate the trial. Treatment with phonological/phonotomotor approach targeting one- syllable CVC words. Assessment Patient Response to Treatment Good Rehab Potential Good Impairments Identified Expressive language,Receptive language,Cognitive communication Assessment of Improvement Alexander states that he still feels that he is able to say many words correctly alone but they start to come out wrong as soon as he tries to speak to another person. It is possible this is due to changes in perception of his own speech. APPLICATION SERVICES MANAGER again encouraged pt to audio record himself practicing words alone to assess next session with the goal of increasing awareness the consistency of verbal errors. Alexander still requires mod prompting to utilize AAC rather than perseverating on producing a word verbally. He continues to utilize auto-fill search on his phone to facilitate word- finding, which is a useful strategy for him. During CVC word trials, pt was able to say CVC with 28% accuracy independently, increasing to 86% accuracy given visual sound cards as well as APPLICATION SERVICES MANAGER model. Reviewed with Patient Goals Plan Amount of Therapy Recommended 6 Months Frequency of Treatment Once a Week Length of Session 45 Minutes Treatment Emphasis Next Session Continue with AAC development, phonomotor tx Therapeutic Contents AAC,Cognitive-Linguistic Training,Expressive Language Training,Receptive Language Training Provided Patient/Caregiver Instruction Plan of Care
--- NOTE | 2023-04-03 16:33 | ST.OPTN ---
Visit Care Team Role Provider Type Enzo Keita DO Attending Provider Physician Family Provider Primary Care Provider Referring Provider Address: [address] [place] [address], [address], [place], [address] FERMENTATION ENGINEER Treatment Note FERMENTATION ENGINEER Treatment Note Start: 02/22/23 16:12 Freq: Status: Active Protocol: Document 04/03/23 15:28 CG (Rec: 04/03/23 16:33 CG [id number]) Speech Pathology Treatment Note Session Time Visit Start Time 13:30 Visit Stop Time 14:27 Total Visit Minutes 57 Visit Information Visit Number 5 Plan of Care Dates 02/20/23-05/22/23 Setting Treatment Setting Outpatient Care Next Note Type Next Note Type Treatment Note General Information Patient History Alexander is a 57-year-old man with a history of stroke in March of 2021, which the pt states he believes was caused by an adverse reaction to the Covid vaccine. 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 He is here today for an evaluation of aphasia. He was accompanied briefly by his mother, who was here to assist with providing history before leaving for remainder of assessment. Alexander was briefly seen by an FERMENTATION ENGINEER at [facility] (Haley Knox MA, CF-FERMENTATION ENGINEER), where various treatment frameworks were introduced, including The Context-Based Approach for Wernicke's Aphasia, Supported Conversation for Adults with Aphasia, and Phonomotor Treatment. The last treatment note for speech-language therapy was from August 2021. Based on FERMENTATION ENGINEER notes and doctor' s notes, Alexander's comprehension skills have been gradually increasing, though his verbal expression remains largely impacted by phonemic and semantic paraphasias ( predominantly phonemic). Alexander has not completed any speech- language therapy since the spring. He states that he often uses his phone to help communicate (for example, if he is trying to say a specific place name, he will find it on a maps matthew rather than trying to say it). He does have an AAC-type matthew that uses predictive text to assist in communication, but the matthew uses all orthographic representations of language, so Alexander states he does not find this matthew helpful. He has not worked with any other type of AAC in the past. Subjective Identification Type Name Objective Short Term Goals 1. Pt will complete trial of AAC device (low tech or high tech) to determine whether he would benefit from dedicated AAC device. 2. Pt will name CVC words with 80% accuracy independently given treatment with phonologically based approach. 3. Pt will benefit from education re total communication approach/SCA approach for aphasia in order to decrease frustration and increase ability to communicate wants/needs. 4. Given visual input (drawing , picture, pointing), pt will answer basic yes/no questions with 100% accuracy. Core Placer Goals Pt will utilize total communication (verbal, gesture , written, AAC) to communicate wants/needs with communication partners without communication breakdowns in order to increase ability to participate with vocational and recreational activities. Treatment Activities Continued instruction in low- tech AAC with use of total communication approach. Continued total communication to discuss new AAC words to add to binder. Treatment with phonological/phonotomotor approach targeting one- syllable CVC words. FERMENTATION ENGINEER to call pt's mother/gericare aide teacher to follow up re insurance information for [employer] device. Assessment Patient Response to Treatment Good Rehab Potential Good Impairments Identified Expressive language,Receptive language,Cognitive communication Assessment of Improvement Alexander did not bring his communication binder this session, but was receptive to new AAC icons introduced. He continues to utilize auto-fill search on his phone to facilitate word-finding and communication with listener, which is a useful strategy for him. He expressed that he wants to talk to a medical malpractice contract attorney because he believes he was given a vaccine (possibly the Covid vaccine) without consent and also believes this caused his stroke and aphasia. He is inquiring whether there are any resources in the community that could help him communicate with an contract attorney. FERMENTATION ENGINEER to research resources and also determine FERMENTATION ENGINEER's most appropriate role in this process. During CVC word trials, pt was able to say CVC with 55% accuracy independently, increasing to 78% accuracy given visual sound cards as well as FERMENTATION ENGINEER model. His speech remains mostly fluent and jargon-like, and his ability to monitor his own productions remains decreased. Total communication/AAC approach will likely be the most beneficial for Alexander. Reviewed with Patient Goals Plan Amount of Therapy Recommended 6 Months Frequency of Treatment Once a Week Length of Session 45 Minutes Treatment Emphasis Next Session Continue with AAC development, phonomotor tx Therapeutic Contents AAC,Cognitive-Linguistic Training,Expressive Language Training,Receptive Language Training Provided Patient/Caregiver Instruction Plan of Care
--- NOTE | 2023-05-11 10:09 | ST-OP ANOTE ---
Physical, Occupational & Speech Therapy At [facility] Speech Therapy Note Pt no-showed appt on 05/11/23 scheduled at 0930 AM. DRAFTER LANDSCAPE called to follow up on the no-show and was able to get in touch with pt's mother/vp care management. She stated she had a surgical procedure within the past couple of days and was therefore unable to drive pt to his appointment. DRAFTER LANDSCAPE explained that we had the pt's trial communication device in and that today was his last scheduled appointment. Explained that we had this device on hand now and that it was very important that the pt get a chance to try it out. Gave her some information about transportation options through their insurance or through the county and encouraged her to arrange for alternative transportation in advance and then call to try to book more appointments. Further explained that pt's account is at risk of being discharged due to no-shows and late cancellations. Will wait to see if pt's mother calls to schedule more appts and follow up by mid-May regarding discharging the account if no contact.
--- NOTE | 2023-05-31 13:51 | ST.OPRE ---
Visit Care Team Role Provider Type Enzo Keita DO Attending Provider Physician Family Provider Primary Care Provider Referring Provider Specialty: Family Practice Address: [address] [place] [address], [address], [address] Email: Speech-Language Pathology Evaluation/Summary RADIO ARTIST Speech Generating Device Start: 05/31/23 11:23 Freq: Status: Active Protocol: Document 05/31/23 11:24 CG (Rec: 05/31/23 11:51 CG [id number]) Speech Generating Device Session Time Visit Start Time 10:35 Visit Stop Time 11:20 Total Visit Minutes 45 Next Note Type Next Note Type Treatment Note History Patient History Alexander is a 57-year-old man with a history of stroke in March of 2021, which the pt states he believes was caused by an adverse reaction to the Covid vaccine. 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 He initially presented to this facility for an evaluation of aphasia on 02/21/23. Prior to starting treatment at this facility, Alexander was briefly seen by an RADIO ARTIST at [facility] (Haley Knox MA, CF-RADIO ARTIST), where various treatment frameworks were introduced, including The Context-Based Approach for Wernicke's Aphasia, Supported Conversation for Adults with Aphasia, and Phonomotor Treatment. The last treatment note for speech-language therapy at that facility was from August 2021. Since evaluation at this facility, the pt has been working with the RADIO ARTIST on total communication, including developing and trialing low- tech AAC (a communication binder with various velcro pictures of relevant locations , foods, interests, etc). Additionally, a phonomotor- based treatment has been trialed to assess whether rehabilitation of spontaneous speech may be attainable. Alexander has had limited carryover between trials of target words with a phonomotor approach. However, a total communication approach, especially with the use of pictures rather than written words, has been successful for Alexander. Subjective Obesrvations/Patient Report The pt presents with fluent, jargon-like speech with appropriate intonation. Observation Mental Status Alert,Cooperative,Confused Informal Assessment Alexander presents with fluent, jargon-like speech with perseverations on Pt demonstrates good awareness of deficits, frequently trying to express that he can say a word sometimes after a model, but that it will come out wrong other times. His recognition of his paraphasias in real-time is limited during production, but he appears aware of when he has misproduced a word based on assessing the listener's ability to understand from nonverbal cues. Functional Assessment Hearing Not Impaired Vision Impaired Physical Status Not Impaired Anticipated Course of Impairment Stable Communication Abilities Motor Speech WFL Cognitive-Communication Unable to accurately assess due to impaired receptive and expressive lang. Spoken Language Comprehension Mildly impaired Spoken Language Expression Severely-profoundly impaired Reading Severely impaired Writing Severely impaired Daily Communication Needs Family/Community Interaction Communicating with bus drivers , ordering food/drinks. Obtain Medical Care/Participate in Stating and medical hx, Medical Decision Making explaining communication needs Other Legal communication - pt wants to pursue lawsuit - Assessment of non-SGD Communication Gesture Simple Communication (Basic Needs) Unable Effective Complex-Communication Unable Level of Assistance Needed Maximum Yemeni Sign Language/Finger Spelling Simple Communication (Basic Needs) Unable Effective Complex-Communication Unable Low Tech Simple Communicaiton (Basic Needs) Able with Assistance Effective Complex-Communication Unable Level of Assistance Needed Moderate - Speech Generating Device Trials Device/System Trialed [employer]ocrata Version 2.13 Patient/Family Response Pt was highly receptive to device. Pt's mother/critical care educator also indicated interest in the device when RADIO ARTIST initially discussed trial with her, though she was not present at today's trial. Alexander independently explored various categorized icons and verbally affirmed interest in using the device. He expressed particular interest in the basic information page, utilizing date icon and stating that would be great because I never wear [say] that right. When asked whether he would be comfortable using this device across communicative contexts, he expressed interest, including the phrases It's more than I can do, and at least I get a start. RADIO ARTIST conducted trials of mock communicative scenarios in which the pt might utilize the device, including communicating that he wants to go to a grocery store or ordering a specific breakfast food. Alexander was able to navigate through the device to find target icons independently in 3/5 opportunities, increasing to 5 /5 opportunities given minimal verbal cues from RADIO ARTIST. RADIO ARTIST highly recommends this communication device for the patient based on his receptiveness and ability to independently navigate through some pages even on this first introduction. This device is appropriate for Alexander because it is picture-based, customizable, and provides access to an expanded vocabulary beyond what would be available with a lower-tech device. This device offers the potential for Alexander's expressive language to more adequately match his receptive understanding and communicate basic needs. Findings Recommended Methods of Communication Speech-Generating Device Recommendations Recommend Treatment Yes
--- NOTE | 2023-06-13 13:23 | ST.OPTN ---
Visit Care Team Role Provider Type Enzo Keita DO Attending Provider Physician Family Provider Primary Care Provider Referring Provider Address: [address] [place] [address], [address], [place], [address] DRIER AND EVAPORATOR OPERATOR Treatment Note DRIER AND EVAPORATOR OPERATOR Treatment Note Start: 02/22/23 16:12 Freq: Status: Active Protocol: Document 06/13/23 12:00 CG (Rec: 06/13/23 12:06 [id number]) Speech Pathology Treatment Note Session Time Visit Start Time 10:30 Visit Stop Time 11:15 Total Visit Minutes 45 Visit Information Visit Number 6 Plan of Care Dates 05/29/23-08/28/23 Setting Treatment Setting Outpatient Care Next Note Type Next Note Type Treatment Note General Information Patient History Alexander is a 57-year-old man with a history of stroke in March of 2021, which the pt states he believes was caused by an adverse reaction to the Covid vaccine. 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 He initially presented to this facility for an evaluation of aphasia on 02/21/23. Prior to starting treatment at this facility, Alexander was briefly seen by an DRIER AND EVAPORATOR OPERATOR at [facility] (Haley Knox MA, CF-DRIER AND EVAPORATOR OPERATOR), where various treatment frameworks were introduced, including The Context-Based Approach for Wernicke's Aphasia, Supported Conversation for Adults with Aphasia, and Phonomotor Treatment. The last treatment note for speech-language therapy at that facility was from August 2021. Since evaluation at this facility, the pt has been working with the DRIER AND EVAPORATOR OPERATOR on total communication, including developing and trialing low- tech AAC (a communication binder with various velcro pictures of relevant locations , foods, interests, etc). Additionally, a phonomotor- based treatment has been trialed to assess whether rehabilitation of spontaneous speech may be attainable. Alexander has had limited carryover between trials of target words with a phonomotor approach. However, a total communication approach, especially with the use of pictures rather than written words, has been successful for Alexander. Subjective Identification Type Name Observations/Patient Presentation Alexander arrived on time to his appointment and ambulated independently to the appointment room. He complained of shoulder pain and fatigue. Chief Complaint(s) Language Objective Short Term Goals 1. Pt will reduce medical risks by communicating medical information and physical symptoms with 80% accuracy independently via total communication (including AAC device). 2. Pt will utilize AAC device to communicate basic needs/ preferences (food, places, etc ) with 80% accuracy independently. 3. Pt and care partners will benefit from education in use and programming of AAC device. Roller Die Cutting Machine Operator Goals Pt will communicate basic wants and needs with 80% accuracy independently using a total communication approach( verbal, gesture, AAC). Treatment Activities DRIER AND EVAPORATOR OPERATOR continued introduction of [facility] AAC device with continued customization of device. Completed necessary paperwork for [facility] to submit device for insurance approval. Practiced finding targets on AAC device including types of clothing, names of restaurants, and types of food. Assessment Patient Response to Treatment Good Rehab Potential Good Impairments Identified Expressive language,Receptive language,Cognitive communication Assessment of Improvement Alexadner brought his low-tech communication binder this session, and DRIER AND EVAPORATOR OPERATOR worked to program custom icons into [facility] device from communication binder, including name of favorite restaurant ([employer]), preferred order, and some preferred food items. Alexander was able to navigate through the device to find target icons with minimal verbal cues from DRIER AND EVAPORATOR OPERATOR. DRIER AND EVAPORATOR OPERATOR to reach out to [facility] to program in more custom icons which were previously present in pt's communication binder. Reviewed with Patient Goals Plan Amount of Therapy Recommended 6 Months Frequency of Treatment Once a Week Length of Session 45 Minutes Treatment Emphasis Next Session Continue with AAC development Therapeutic Contents AAC,Cognitive-Linguistic Training,Expressive Language Training,Receptive Language Training Provided Patient/Caregiver Instruction Plan of Care
--- NOTE | 2023-06-13 13:23 | ST.OPPOC ---
Physical, Occupational & Speech Therapy At [facility] Visit Care Team Role Provider Type Enzo Keita DO Attending Provider Physician Family Provider Primary Care Provider Referring Provider Address: [address] [place] [address], [address], [place], [address] Speech Pathology Plan of Care Plan of Care Dates 05/29/23-08/28/23 Referring Provider Enzo Keita DO Patient History Alexander is a 57-year-old man with a history of stroke in March of 2021, which the pt states he believes was caused by an adverse reaction to the Covid vaccine. 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 He initially presented to this facility for an evaluation of aphasia on . Prior to starting treatment at this facility, Alexander was briefly seen by an FIELD SALES REPRESENTATIVE at [facility] (Haley Knox MA, CF-FIELD SALES REPRESENTATIVE), where various treatment frameworks were introduced, including The Context-Based Approach for Wernicke's Aphasia, Supported Conversation for Adults with Aphasia, and Phonomotor Treatment. The last treatment note for speech-language therapy at that facility was from August 2021. Since evaluation at this facility, the pt has been working with the FIELD SALES REPRESENTATIVE on total communication , including developing and trialing low-tech AAC (a communication binder with various velcro pictures of relevant locations, foods, interests , etc). Additionally, a phonomotor-based treatment has been trialed to assess whether rehabilitation of spontaneous speech may be attainable. Alexander has had limited carryover between trials of target words with a phonomotor approach. However, a total communication approach, especially with the use of pictures rather than written words, has been successful for Alexander. Impairments Identified Expressive language,Receptive language,Cognitive communication Self-awareness of Cognitive- Predictive awareness (abl Communication Deficits General Tasks and Demands Moderate Household Tasks Moderate Interpersonal Interactions Severe Education Severe Employment Severe Community Severe Being Left Alone at Home Moderate Reacting to Emergency Severe Managing Medication Severe Traveling Alone in Community Severe Additional Precautions Legal communication - pt wants to pursue lawsuit Short Term Goals 1. Pt will reduce medical risks by communicating medical information and physical symptoms with 80% accuracy independently via total communication (including AAC device). 2. Pt will utilize AAC device to communicate basic needs/preferences (food, places, etc) with 80% accuracy independently. 3. Pt and care partners will benefit from education in use and programming of AAC device. Custodial Goals Pt will communicate basic wants and needs with 80% accuracy independently using a total communication approach(verbal, gesture, AAC). Comment: Electronically Signed by: KIRSTY Natarajan 06/13/23 [id number] If you are in agreement with this Plan of Care, please return a signed and dated copy. I have reviewed this Plan of Care and certify that the skilled therapy services above are required to meet the patient?s needs. Physician Signature Date Printed Name and Credentials Clinical Instructor Signature Printed Name and Credentials
--- NOTE | 2023-06-20 11:20 | ST.OPTN ---
Visit Care Team Role Provider Type Enzo Keita DO Attending Provider Physician Family Provider Primary Care Provider Referring Provider Address: [address] [place] [address], [address], [place], [address] SUPERVISOR TELEPHONE INFORMATION Treatment Note SUPERVISOR TELEPHONE INFORMATION Treatment Note Start: 02/22/23 16:12 Freq: Status: Active Protocol: Document 06/20/23 11:13 CG (Rec: 06/20/23 11:20 CG [id number]) Speech Pathology Treatment Note Session Time Visit Start Time 10:30 Visit Stop Time 11:15 Total Visit Minutes 45 Visit Information Visit Number 7 Plan of Care Dates 05/29/23-08/28/23 Setting Treatment Setting Outpatient Care Next Note Type Next Note Type Treatment Note General Information Patient History Alexander is a 57-year-old man with a history of stroke in March of 2021, which the pt states he believes was caused by an adverse reaction to the Covid vaccine. 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 He initially presented to this facility for an evaluation of aphasia on 02/21/23. Prior to starting treatment at this facility, Alexander was briefly seen by an SUPERVISOR TELEPHONE INFORMATION at [facility] (Haley Knox MA, CF-SUPERVISOR TELEPHONE INFORMATION), where various treatment frameworks were introduced, including The Context-Based Approach for Wernicke's Aphasia, Supported Conversation for Adults with Aphasia, and Phonomotor Treatment. The last treatment note for speech-language therapy at that facility was from August 2021. Since evaluation at this facility, the pt has been working with the SUPERVISOR TELEPHONE INFORMATION on total communication, including developing and trialing low- tech AAC (a communication binder with various velcro pictures of relevant locations , foods, interests, etc). Additionally, a phonomotor- based treatment has been trialed to assess whether rehabilitation of spontaneous speech may be attainable. Alexander has had limited carryover between trials of target words with a phonomotor approach. However, a total communication approach, especially with the use of pictures rather than written words, has been successful for Alexander. Subjective Identification Type Name Observations/Patient Presentation Alexander arrived on time to his appointment and ambulated independently to the appointment room. He continues to complain of shoulder pain. Chief Complaint(s) Language Objective Short Term Goals 1. Pt will reduce medical risks by communicating medical information and physical symptoms with 80% accuracy independently via total communication (including AAC device). 2. Pt will utilize AAC device to communicate basic needs/ preferences (food, places, etc ) with 80% accuracy independently. 3. Pt and care partners will benefit from education in use and programming of AAC device. [employer]sp Goals Pt will communicate basic wants and needs with 80% accuracy independently using a total communication approach( verbal, gesture, AAC). Treatment Activities SUPERVISOR TELEPHONE INFORMATION continued introduction of [facility] AAC device with continued customization of device. SUPERVISOR TELEPHONE INFORMATION guided discussion to add functional targets related to reminiscing, including discussing previous places the pt has lived and previous jobs. Assessment Patient Response to Treatment Good Rehab Potential Good Impairments Identified Expressive language,Receptive language,Cognitive communication Assessment of Improvement Alexander continues to be receptive to AAC device. Icons added today included name of pt's previous town of residence in [place] and icons to discuss previous jobs. Alexander continues to use a maps matthew on his phone to locate places for which he cannot express the name, such as the name of the city where he previously lived. He was encouraged to use the screenshot feature on his phone to capture a list of any places that he wants to discuss and have added to the AAC device in order to guide further programming. SUPERVISOR TELEPHONE INFORMATION is still in communication with Laurie to work towards dedicated device. SUPERVISOR TELEPHONE INFORMATION to provide physician information in order to move forward with final submission for approval. Plan Amount of Therapy Recommended 6 Months Frequency of Treatment Once a Week Length of Session 45 Minutes Treatment Emphasis Next Session Continue with AAC development Therapeutic Contents AAC,Cognitive-Linguistic Training,Expressive Language Training,Receptive Language Training Provided Patient/Caregiver Instruction Plan of Care
--- NOTE | 2023-06-27 11:40 | ST.OPTN ---
Visit Care Team Role Provider Type Enzo Keita DO Attending Provider Physician Family Provider Primary Care Provider Referring Provider Address: [address] [place] [address], [address], [place], [address] FOOD SAFETY COORDINATOR Treatment Note FOOD SAFETY COORDINATOR Treatment Note Start: 02/22/23 16:12 Freq: Status: Active Protocol: Document 06/27/23 11:32 CG (Rec: 06/27/23 11:40 CG [id number]) Speech Pathology Treatment Note Session Time Visit Start Time 10:30 Visit Stop Time 11:15 Total Visit Minutes 45 Visit Information Visit Number 8 Plan of Care Dates 05/29/23-08/28/23 Setting Treatment Setting Outpatient Care Next Note Type Next Note Type Treatment Note General Information Patient History Alexander is a 57-year-old man with a history of stroke in March of 2021, which the pt states he believes was caused by an adverse reaction to the Covid vaccine. 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 He initially presented to this facility for an evaluation of aphasia on 02/21/23. Prior to starting treatment at this facility, Alexander was briefly seen by an FOOD SAFETY COORDINATOR at [facility] (Haley Knox MA, CF-FOOD SAFETY COORDINATOR), where various treatment frameworks were introduced, including The Context-Based Approach for Wernicke's Aphasia, Supported Conversation for Adults with Aphasia, and Phonomotor Treatment. The last treatment note for speech-language therapy at that facility was from August 2021. Since evaluation at this facility, the pt has been working with the FOOD SAFETY COORDINATOR on total communication, including developing and trialing low- tech AAC (a communication binder with various velcro pictures of relevant locations , foods, interests, etc). Additionally, a phonomotor- based treatment has been trialed to assess whether rehabilitation of spontaneous speech may be attainable. Alexander has had limited carryover between trials of target words with a phonomotor approach. However, a total communication approach, especially with the use of pictures rather than written words, has been successful for Alexander. Subjective Identification Type Name Observations/Patient Presentation Alexander arrived on time to his appointment and ambulated independently to the appointment room. He continues to complain of shoulder pain. Chief Complaint(s) Language Objective Short Term Goals 1. Pt will reduce medical risks by communicating medical information and physical symptoms with 80% accuracy independently via total communication (including AAC device). 2. Pt will utilize AAC device to communicate basic needs/ preferences (food, places, etc ) with 80% accuracy independently. 3. Pt and care partners will benefit from education in use and programming of AAC device. Nursing Home Goals Pt will communicate basic wants and needs with 80% accuracy independently using a total communication approach( verbal, gesture, AAC). Treatment Activities FOOD SAFETY COORDINATOR worked with pt for continued customization of device. Utilizing multimodal total communication and principles of Supported Conversation for Adults with Aphasia (SCAA), FOOD SAFETY COORDINATOR worked with pt to add functional targets related to health concerns and current health providers. Completed role- playing activity in which the pt practiced using his device to communicate at a doctor's office. Assessment Patient Response to Treatment Good Rehab Potential Good Impairments Identified Expressive language,Receptive language,Cognitive communication Assessment of Improvement Icons added today included name and phone number of pt's FOOD SAFETY COORDINATOR (this writer editor) and name/ phone number of his primary care provider. Additionally, added icons to express pt's concerns about shoulder pain and resulting insomnia. During functional role-play activity, Alexander required min- mod cues to access appropriate icons to answer doctor questions in approximately 40% of opportunities, but was approximately 60% independent with the device today. He was visibly excited and relieved today at the prospect of utilizing the device to assist with communication at medical appointments. Pt will continue to benefit from further customization and further practice with the device guided by FOOD SAFETY COORDINATOR. FOOD SAFETY COORDINATOR is still in communication with [employer] processing acquiring Alexander's dedicated device. Physician order forms have been signed and device is pending insurance approval. Plan Amount of Therapy Recommended 6 Months Frequency of Treatment Once a Week Length of Session 45 Minutes Treatment Emphasis Next Session Continue with AAC development Therapeutic Contents AAC,Cognitive-Linguistic Training,Expressive Language Training,Receptive Language Training Provided Patient/Caregiver Instruction Plan of Care
--- NOTE | 2023-07-05 11:13 | ST.OPTN ---
Visit Care Team Role Provider Type Enzo Keita DO Attending Provider Physician Family Provider Primary Care Provider Referring Provider Address: [address] [place] [address], [address], [place], [address] ELASTIC ATTACHER CHAINSTITCH Treatment Note ELASTIC ATTACHER CHAINSTITCH Treatment Note Start: 02/22/23 16:12 Freq: Status: Active Protocol: Document 07/05/23 11:07 CG (Rec: 07/05/23 11:12 CG [id number]) Speech Pathology Treatment Note Session Time Visit Start Time 10:30 Visit Stop Time 11:07 Total Visit Minutes 37 Visit Information Visit Number 9 Plan of Care Dates 05/29/23-08/28/23 Setting Treatment Setting Outpatient Care Next Note Type Next Note Type Treatment Note General Information Patient History Alexander is a 57-year-old man with a history of stroke in March of 2021, which the pt states he believes was caused by an adverse reaction to the Covid vaccine. 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 He initially presented to this facility for an evaluation of aphasia on 02/21/23. Prior to starting treatment at this facility, Alexander was briefly seen by an ELASTIC ATTACHER CHAINSTITCH at [facility] (Haley Knox MA, CF-ELASTIC ATTACHER CHAINSTITCH), where various treatment frameworks were introduced, including The Context-Based Approach for Wernicke's Aphasia, Supported Conversation for Adults with Aphasia, and Phonomotor Treatment. The last treatment note for speech-language therapy at that facility was from August 2021. Since evaluation at this facility, the pt has been working with the ELASTIC ATTACHER CHAINSTITCH on total communication, including developing and trialing low- tech AAC (a communication binder with various velcro pictures of relevant locations , foods, interests, etc). Additionally, a phonomotor- based treatment has been trialed to assess whether rehabilitation of spontaneous speech may be attainable. Alexander has had limited carryover between trials of target words with a phonomotor approach. However, a total communication approach, especially with the use of pictures rather than written words, has been successful for Alexander. Subjective Identification Type Name Observations/Patient Presentation Alexander arrived on time to his appointment with his mother and ambulated independently to the appointment room. He continues to complain of severe shoulder pain which is increasing in intensity. He plans to go to ER or walk in clinic after this appointment. Chief Complaint(s) Language Objective Short Term Goals 1. Pt will reduce medical risks by communicating medical information and physical symptoms with 80% accuracy independently via total communication (including AAC device). 2. Pt will utilize AAC device to communicate basic needs/ preferences (food, places, etc ) with 80% accuracy independently. 3. Pt and care partners will benefit from education in use and programming of AAC device. [place] Goals Pt will communicate basic wants and needs with 80% accuracy independently using a total communication approach( verbal, gesture, AAC). Treatment Activities ELASTIC ATTACHER CHAINSTITCH worked with pt for continued customization of device. Utilizing multimodal total communication and principles of Supported Conversation for Adults with Aphasia (SCAA), ELASTIC ATTACHER CHAINSTITCH worked with pt to add further functional targets related to health concerns and current health providers. Modeled use of device for medical communication. Assessment Patient Response to Treatment Good Rehab Potential Good Impairments Identified Expressive language,Receptive language,Cognitive communication Assessment of Improvement Icons added today included updated patient medications, updated list of providers ( added physical therapy). Practiced utilizing device to describe shoulder pain, and pt was able to navigate device independently in approximately 70% of opportunities. ELASTIC ATTACHER CHAINSTITCH received confirmation this morning that pt's dedicated device has been approved by insurance. Talked with patient's mother re having her come back into a session to learn about the device and how it works so that she can be a elderly caregiver once pt has his own dedicated device. Plan Amount of Therapy Recommended 6 Months Frequency of Treatment Once a Week Length of Session 30 Minutes Treatment Emphasis Next Session Continue with AAC development Therapeutic Contents AAC,Cognitive-Linguistic Training,Expressive Language Training,Receptive Language Training Provided Patient/Caregiver Instruction Plan of Care
--- NOTE | 2023-07-19 12:04 | ST.OPTN ---
Visit Care Team Role Provider Type Enzo Keita DO Attending Provider Physician Family Provider Primary Care Provider Referring Provider Address: [address] [place] [address], [address], [place], [address] ASSOCIATE PROGRAMMER Treatment Note ASSOCIATE PROGRAMMER Treatment Note Start: 02/22/23 16:12 Freq: Status: Active Protocol: Document 07/19/23 12:01 CG (Rec: 07/19/23 12:04 [id number]) Speech Pathology Treatment Note Session Time Visit Start Time 10:30 Visit Stop Time 11:15 Total Visit Minutes 45 Visit Information Visit Number 10 Plan of Care Dates 05/29/23-08/28/23 Setting Treatment Setting Outpatient Care Next Note Type Next Note Type Treatment Note General Information Patient History Alexander is a 57-year-old man with a history of stroke in March of 2021, which the pt states he believes was caused by an adverse reaction to the Covid vaccine. 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 He initially presented to this facility for an evaluation of aphasia on 02/21/23. Prior to starting treatment at this facility, Alexander was briefly seen by an ASSOCIATE PROGRAMMER at [facility] (Haley Knox MA, CF-ASSOCIATE PROGRAMMER), where various treatment frameworks were introduced, including The Context-Based Approach for Wernicke's Aphasia, Supported Conversation for Adults with Aphasia, and Phonomotor Treatment. The last treatment note for speech-language therapy at that facility was from August 2021. Since evaluation at this facility, the pt has been working with the ASSOCIATE PROGRAMMER on total communication, including developing and trialing low- tech AAC (a communication binder with various velcro pictures of relevant locations , foods, interests, etc). Additionally, a phonomotor- based treatment has been trialed to assess whether rehabilitation of spontaneous speech may be attainable. Alexander has had limited carryover between trials of target words with a phonomotor approach. However, a total communication approach, especially with the use of pictures rather than written words, has been successful for Alexander. Subjective Identification Type Name Observations/Patient Presentation Alexander arrived on time to his appointment and ambulated independently to the appointment room. He continues to complain of severe shoulder pain despite ER visit two weeks ago. Chief Complaint(s) Language Objective Short Term Goals 1. Pt will reduce medical risks by communicating medical information and physical symptoms with 80% accuracy independently via total communication (including AAC device). 2. Pt will utilize AAC device to communicate basic needs/ preferences (food, places, etc ) with 80% accuracy independently. 3. Pt and care partners will benefit from education in use and programming of AAC device. Ecommerce Manager Goals Pt will communicate basic wants and needs with 80% accuracy independently using a total communication approach( verbal, gesture, AAC). Treatment Activities ASSOCIATE PROGRAMMER worked with pt for continued customization of device as pt has recently received his own dedicated device. Utilizing multimodal total communication and principles of Supported Conversation for Adults with Aphasia (SCAA), ASSOCIATE PROGRAMMER worked with pt to add further functional targets related to health concerns and current health providers. Modeled use of device for medical communication. Assessment Patient Response to Treatment Good Rehab Potential Good Impairments Identified Expressive language,Receptive language,Cognitive communication Assessment of Improvement Icons added today included updating new dedicated device to reflect previously programmed icons including medications and health history . Also added preferred TV programs to discuss leisure activities. Pt was interactive with device and stated he was planning to use it to communicate with doctors now that it had been further customized. Talked with patient's mother re having her come back into a session to learn about the device and how it works so that she can be a day care teacher now that pt has his own dedicated device. Plan Amount of Therapy Recommended 6 Months Frequency of Treatment Once a Week Length of Session 30 Minutes Treatment Emphasis Next Session Continue with AAC development Therapeutic Contents AAC,Cognitive-Linguistic Training,Expressive Language Training,Receptive Language Training Provided Patient/Caregiver Instruction Plan of Care
--- NOTE | 2023-07-19 12:10 | ST.PROG ---
Visit Care Team Role Provider Type Enzo Keita DO Attending Provider Physician Family Provider Primary Care Provider Referring Provider Address: [address] [place] [address], [address], [place], [address] DAIRY NUTRITION SPECIALIST Progress Note DAIRY NUTRITION SPECIALIST Treatment Note Start: 02/22/23 16:12 Freq: Status: Active Protocol: Document 07/19/23 12:04 CG (Rec: 07/19/23 12:06 CG [id number]) Speech Pathology Treatment Note Session Time Visit Start Time 10:30 Visit Stop Time 11:15 Total Visit Minutes 45 Visit Information Visit Number 10 Plan of Care Dates 05/29/23-08/28/23 Setting Treatment Setting Outpatient Care Visit Type Note Type Progress Note General Information Patient History Alexander is a 57-year-old man with a history of stroke in March of 2021, which the pt states he believes was caused by an adverse reaction to the Covid vaccine. 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 He initially presented to this facility for an evaluation of aphasia on 02/21/23. Prior to starting treatment at this facility, Alexander was briefly seen by an DAIRY NUTRITION SPECIALIST at [facility] (Haley Knox MA, CF-DAIRY NUTRITION SPECIALIST), where various treatment frameworks were introduced, including The Context-Based Approach for Wernicke's Aphasia, Supported Conversation for Adults with Aphasia, and Phonomotor Treatment. The last treatment note for speech-language therapy at that facility was from August 2021. Since evaluation at this facility, the pt has been working with the DAIRY NUTRITION SPECIALIST on total communication, including developing and trialing low- tech AAC (a communication binder with various velcro pictures of relevant locations , foods, interests, etc). Additionally, a phonomotor- based treatment has been trialed to assess whether rehabilitation of spontaneous speech may be attainable. Alexander has had limited carryover between trials of target words with a phonomotor approach. However, a total communication approach, especially with the use of pictures rather than written words, has been successful for Alexander. Tx continued with trials of robust speech-generating AAC device through [employer] Trial was successful and pt has been issued his own dedicated AAC device through insurance as of this week, . Subjective Identification Type Name Observations/Patient Presentation Alexander arrived on time to his appointment and ambulated independently to the appointment room. He continues to complain of severe shoulder pain despite ER visit two weeks ago. Chief Complaint(s) Language Objective Short Term Goals 1. Pt will reduce medical risks by communicating medical information and physical symptoms with 80% accuracy independently via total communication (including AAC device). 07/19/23: Continue goal. Based on last data collection, Alexander was able to communicate medical concerns with approximately 70% accuracy. 2. Pt will utilize AAC device to communicate basic needs/ preferences (food, places, etc ) with 80% accuracy independently. 07/19/23: Continue goal. This goal has not been heavily targeted, with emphasis on training in communicating medical needs. Pt will benefit from continued customization to add preferred foods, drinks, activities, etc. He is showing increased ability to navigate the device independently, but still required mod verbal cues to find certain icons. 3. Pt and care partners will benefit from education in use and programming of AAC device. 07/19/23: Continue goal. Still awaiting pt's mother to join session to learn programming of device now that pt has received dedicated device. Custodial Goals Pt will communicate basic wants and needs with 80% accuracy independently using a total communication approach( verbal, gesture, AAC). 07/19/23: Ongoing goal, continue. Assessment Patient Response to Treatment Good Rehab Potential Good Impairments Identified Expressive language,Receptive language,Cognitive communication Progress Towards Goals Good Progress Assessment of Overall Progress Improving Plan Amount of Therapy Recommended 3 Months Frequency of Treatment Once a Week Length of Session 30 Minutes Treatment Emphasis Next Session Continue with AAC development Therapeutic Contents AAC,Cognitive-Linguistic Training,Expressive Language Training,Receptive Language Training Therapy Recommendations Continue with Current Program
--- NOTE | 2023-08-09 11:49 | ST.OPTN ---
Visit Care Team Role Provider Type Enzo Keita DO Attending Provider Physician Family Provider Primary Care Provider Referring Provider Address: [address] [place] [address], [facility] [address], [place], [address] PIPELINE SUPERINTENDENT DIVISION Treatment Note PIPELINE SUPERINTENDENT DIVISION Treatment Note Start: 02/22/23 16:12 Freq: Status: Active Protocol: Document 08/09/23 11:43 CG (Rec: 08/09/23 11:49 CG [id number]) Speech Pathology Treatment Note Session Time Visit Start Time 10:30 Visit Stop Time 11:25 Total Visit Minutes 55 Visit Information Visit Number 11 Plan of Care Dates 05/29/23-08/28/23 Setting Treatment Setting Outpatient Care Visit Type Note Type Progress Note Next Note Type Next Note Type Treatment Note General Information Patient History Alexander is a 57-year-old man with a history of stroke in March of 2021, which the pt states he believes was caused by an adverse reaction to the Covid vaccine. 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 He initially presented to this facility for an evaluation of aphasia on 02/21/23. Prior to starting treatment at this facility, Alexander was briefly seen by an PIPELINE SUPERINTENDENT DIVISION at [facility] (Haley Knox MA, CF-PIPELINE SUPERINTENDENT DIVISION), where various treatment frameworks were introduced, including The Context-Based Approach for Wernicke's Aphasia, Supported Conversation for Adults with Aphasia, and Phonomotor Treatment. The last treatment note for speech-language therapy at that facility was from August 2021. Since evaluation at this facility, the pt has been working with the PIPELINE SUPERINTENDENT DIVISION on total communication, including developing and trialing low- tech AAC (a communication binder with various velcro pictures of relevant locations , foods, interests, etc). Additionally, a phonomotor- based treatment has been trialed to assess whether rehabilitation of spontaneous speech may be attainable. Alexander has had limited carryover between trials of target words with a phonomotor approach. However, a total communication approach, especially with the use of pictures rather than written words, has been successful for Alexander. Tx continued with trials of robust speech-generating AAC device through [employer]. Trial was successful and pt has been issued his own dedicated AAC device through insurance as of this week, . Subjective Identification Type Name Observations/Patient Presentation Alexander arrived on time to his appointment and ambulated independently to the appointment room. He continues to complain of severe shoulder pain despite ER visit two weeks ago. Chief Complaint(s) Language Objective Short Term Goals 1. Pt will reduce medical risks by communicating medical information and physical symptoms with 80% accuracy independently via total communication (including AAC device). 07/19/23: Continue goal. Based on last data collection, Alexander was able to communicate medical concerns with approximately 70% accuracy. 2. Pt will utilize AAC device to communicate basic needs/ preferences (food, places, etc ) with 80% accuracy independently. 07/19/23: Continue goal. This goal has not been heavily targeted, with emphasis on training in communicating medical needs. Pt will benefit from continued customization to add preferred foods, drinks, activities, etc. He is showing increased ability to navigate the device independently, but still required mod verbal cues to find certain icons. 3. Pt and care partners will benefit from education in use and programming of AAC device. 07/19/23: Continue goal. Still awaiting pt's mother to join session to learn programming of device now that pt has received dedicated device. Care Home Goals Pt will communicate basic wants and needs with 80% accuracy independently using a total communication approach( verbal, gesture, AAC). 07/19/23: Ongoing goal, continue. Treatment Activities PIPELINE SUPERINTENDENT DIVISION worked with pt for continued customization of device as pt has recently received his own dedicated device. Utilizing multimodal total communication and principles of Supported Conversation for Adults with Aphasia (SCAA), PIPELINE SUPERINTENDENT DIVISION worked with pt to add further functional targets related to preferred TV shows. Discussed pt's progress at home with device, which has been slow due to pt reporting experiencing a period of depression/apathy. Assessment Patient Response to Treatment Good Rehab Potential Good Impairments Identified Expressive language,Receptive language,Cognitive communication Progress Towards Goals Good Progress Assessment of Overall Progress Improving Assessment of Improvement Alexander has had slowed implementation of his communication device at home. He reports that he has felt depressed, apathetic, and not wanting to do anything. When discussing this, he became slightly teary and emotional. Pt did not seem interested in talking to his doctor about depressive episodes. After discussing barriers to implementing device, PIPELINE SUPERINTENDENT DIVISION and pt redirected to further customizing the device to increase communicative quality of life. Pt reported that he had been meaning to write a list of his preferred shows, as he wants to be able to talk about shows that he likes. With total communication approach, PIPELINE SUPERINTENDENT DIVISION and pt created list of preferred shows. PIPELINE SUPERINTENDENT DIVISION programmed about 10 different shows, sorted by network. Completed trials for pt to figure out how to navigate back to these shows. He was able to do so with min verbal cues from PIPELINE SUPERINTENDENT DIVISION. Pt agreeable to continuing to make a list of preferred shows/activities to be programmed into device. PIPELINE SUPERINTENDENT DIVISION advised taking pictures of shows as they play on TV rather than writing a list, due to pt difficulty with written language. Reviewed with Patient Home Exercise Program Plan Amount of Therapy Recommended 3 Months Frequency of Treatment Once a Week Length of Session 30 Minutes Treatment Emphasis Next Session Continue with AAC development Therapeutic Contents AAC,Cognitive-Linguistic Training,Expressive Language Training,Receptive Language Training Therapy Recommendations Continue with Current Program
--- NOTE | 2023-08-16 11:45 | ST.OPTN ---
Visit Care Team Role Provider Type Enzo Keita DO Attending Provider Physician Family Provider Primary Care Provider Referring Provider Address: [address] [place] [address], [address], [place], [address] BOOT TURNER Treatment Note BOOT TURNER Treatment Note Start: 02/22/23 16:12 Freq: Status: Active Protocol: Document 08/16/23 11:35 CG (Rec: 08/16/23 11:45 CG [id number]) Speech Pathology Treatment Note Session Time Visit Start Time 10:30 Visit Stop Time 11:25 Total Visit Minutes 55 Visit Information Visit Number 12 Plan of Care Dates 05/29/23-08/28/23 Setting Treatment Setting Outpatient Care Visit Type Note Type Progress Note Next Note Type Next Note Type Treatment Note General Information Patient History Alexander is a 57-year-old man with a history of stroke in March of 2021, which the pt states he believes was caused by an adverse reaction to the Covid vaccine. 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 He initially presented to this facility for an evaluation of aphasia on 02/21/23. Prior to starting treatment at this facility, Alexander was briefly seen by an BOOT TURNER at [facility] (Haley Knox MA, CF-BOOT TURNER), where various treatment frameworks were introduced, including The Context-Based Approach for Wernicke's Aphasia, Supported Conversation for Adults with Aphasia, and Phonomotor Treatment. The last treatment note for speech-language therapy at that facility was from August 2021. Since evaluation at this facility, the pt has been working with the BOOT TURNER on total communication, including developing and trialing low- tech AAC (a communication binder with various velcro pictures of relevant locations , foods, interests, etc). Additionally, a phonomotor- based treatment has been trialed to assess whether rehabilitation of spontaneous speech may be attainable. Alexander has had limited carryover between trials of target words with a phonomotor approach. However, a total communication approach, especially with the use of pictures rather than written words, has been successful for Alexander. Tx continued with trials of robust speech-generating AAC device through [employer]. Trial was successful and pt has been issued his own dedicated AAC device through insurance. Subjective Identification Type Name Observations/Patient Presentation Alexander arrived on time to his appointment with his mother and ambulated independently to the appointment room. He continues to complain of severe shoulder pain despite ER visit two weeks ago. His mother joined for part of the session in order to discuss scheduling and learn the basics of the pt's AAC device. Chief Complaint(s) Language Objective Short Term Goals 1. Pt will reduce medical risks by communicating medical information and physical symptoms with 80% accuracy independently via total communication (including AAC device). 07/19/23: Continue goal. Based on last data collection, Alexander was able to communicate medical concerns with approximately 70% accuracy. 2. Pt will utilize AAC device to communicate basic needs/ preferences (food, places, etc ) with 80% accuracy independently. 07/19/23: Continue goal. This goal has not been heavily targeted, with emphasis on training in communicating medical needs. Pt will benefit from continued customization to add preferred foods, drinks, activities, etc. He is showing increased ability to navigate the device independently, but still required mod verbal cues to find certain icons. 3. Pt and care partners will benefit from education in use and programming of AAC device. 07/19/23: Continue goal. Still awaiting pt's mother to join session to learn programming of device now that pt has received dedicated device. Nursing Home Goals Pt will communicate basic wants and needs with 80% accuracy independently using a total communication approach( verbal, gesture, AAC). 07/19/23: Ongoing goal, continue. Treatment Activities BOOT TURNER worked with pt for continued customization of device to increase ability to communicate wants/needs, medical information, and discuss interests to increase socialization and reduce isolation. Utilizing multimodal total communication and principles of Supported Conversation for Adults with Aphasia (SCAA), BOOT TURNER worked with pt to add further functional targets related to preferred music/bands. Intermittently trialed pt navigation through device. Assessment Patient Response to Treatment Good Rehab Potential Good Impairments Identified Expressive language,Receptive language,Cognitive communication Progress Towards Goals Good Progress Assessment of Overall Progress Improving Assessment of Improvement Alexander presented as much more bright and motivated today compared to last session. With total communication approach, BOOT TURNER was able to acquire list of preferred bands/genres. Programmed in icons for words such as concert, music festival, genre, country music, classic rock, metal. Also programmed in bands names ( Lynyrd Amandaynmena, Led Zepplin, [employer]). Completed trials for pt to figure out how to navigate back to these band names. Pt was able to navigate to band list with min verbal cues from BOOT TURNER. Also, when describing where a certain artist was from, pt was able to independently navigate to states page and state that the artist was from [place], without BOOT TURNER assistance. He remains highly motivated by the device. Pt's mother expressed understanding of the plan for use of the device. She may require more training to assist with programming buttons into the device. Given Alexander's interest in communicating about a variety of topics, plan to extend POC for further assistance with customization using SCAA approach to choose icons/words . Further implementation of the device has the potential to significantly improve pt QOL. Reviewed with Patient Home Exercise Program Plan Amount of Therapy Recommended 3 Months Frequency of Treatment Once a Week Length of Session 45 Minutes Treatment Emphasis Next Session Continue with AAC development Therapeutic Contents AAC,Cognitive-Linguistic Training,Expressive Language Training,Receptive Language Training Therapy Recommendations Continue with Current Program
--- NOTE | 2023-09-06 13:16 | ST.OPTN ---
Visit Care Team Role Provider Type Enzo Keita DO Attending Provider Physician Family Provider Primary Care Provider Referring Provider Address: [address] [place] [address], [address], [place], [address] NURSING UNIT COORDINATOR Treatment Note NURSING UNIT COORDINATOR Treatment Note Start: 02/22/23 16:12 Freq: Status: Active Protocol: Document 09/06/23 13:00 CG (Rec: 09/06/23 13:15 CG [id number]) Speech Pathology Treatment Note Session Time Visit Start Time 12:00 Visit Stop Time 12:50 Total Visit Minutes 50 Visit Information Visit Number 14 Plan of Care Dates 09/06/23-12/06/23 Setting Treatment Setting Outpatient Care Visit Type Note Type Progress Note Next Note Type Next Note Type Treatment Note General Information Patient History Alexander is a 57-year-old man with a history of stroke in March of 2021, which the pt states he believes was caused by an adverse reaction to the Covid vaccine. 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 He initially presented to this facility for an evaluation of aphasia on 02/21/23. Prior to starting treatment at this facility, Alexander was briefly seen by an NURSING UNIT COORDINATOR at [facility] (Haley Knox MA, CF-NURSING UNIT COORDINATOR), where various treatment frameworks were introduced, including The Context-Based Approach for Wernicke's Aphasia, Supported Conversation for Adults with Aphasia, and Phonomotor Treatment. The last treatment note for speech-language therapy at that facility was from August 2021. Since evaluation at this facility, the pt has been working with the NURSING UNIT COORDINATOR on total communication, including developing and trialing low- tech AAC (a communication binder with various velcro pictures of relevant locations , foods, interests, etc). Additionally, a phonomotor- based treatment has been trialed to assess whether rehabilitation of spontaneous speech may be attainable. Alexander has had limited carryover between trials of target words with a phonomotor approach. However, a total communication approach, especially with the use of pictures rather than written words, has been successful for Alexander. Tx continued with trials of robust speech-generating AAC device through [employer]. Trial was successful and pt has been issued his own dedicated AAC device through insurance. Subjective Identification Type Name Observations/Patient Presentation Alexander arrived on time to his appointment ambulated independently to the appointment room. He did not c/o shoulder pain this session . He did not have his communication device present with him this session, so tx focused on verbally identifying targets to program into the device. Chief Complaint(s) Language Objective Short Term Goals 1. Pt will reduce medical risks by communicating medical information and physical symptoms with 80% accuracy independently via total communication (including AAC device). 07/19/23: Continue goal. Based on last data collection, Alexander was able to communicate medical concerns with approximately 70% accuracy. 09/06/23: Continue goal. Pt remains at approximately 70% accuracy. 2. Pt will utilize AAC device to communicate basic needs/ preferences (food, places, etc ) with 80% accuracy independently. 07/19/23: Continue goal. This goal has not been heavily targeted, with emphasis on training in communicating medical needs. Pt will benefit from continued customization to add preferred foods, drinks, activities, etc. He is showing increased ability to navigate the device independently, but still required mod verbal cues to find certain icons. 09/06/23: Continue goal. Pt with limited utilization of device outside of therapy. NURSING UNIT COORDINATOR continuing to encourage device use in all contexts. Will need to discuss d/c if pt does not begin using device more regularly; however, he is still showing interest in using it at this time though carryover is limited, complicated by outside health concerns. 3. Pt and care partners will benefit from education in use and programming of AAC device. 07/19/23: Continue goal. Still awaiting pt's mother to join session to learn programming of device now that pt has received dedicated device. 09/06/23: Discontinue, goal met . Alf Goals Pt will communicate basic wants and needs with 80% accuracy independently using a total communication approach( verbal, gesture, AAC). 07/19/23: Ongoing goal, continue. 09/06/23: Ongoing goal, continue. Treatment Activities Utilizing multimodal total communication and principles of Supported Conversation for Adults with Aphasia (SCAA), NURSING UNIT COORDINATOR worked with pt to come up with list of other functional targets for communication device. Targets discussed included locations ([place], farm machinery mechanic, [place], [place], [place]), hobbies /interests (various musical artists), and food/recipes. Intermittently trialed pt navigation through device. Occasional trials of verbal production of target words with NURSING UNIT COORDINATOR breaking word into syllables with orthographic cues in addition to immediate model. Instructed the pt that his homework is to spend 15 minutes each day scrolling through the device and exploring icons and folders, and to remember to bring communication device with him everywhere. Assessment Patient Response to Treatment Good Rehab Potential Good Impairments Identified Expressive language,Receptive language,Cognitive communication Progress Towards Goals Good Progress Assessment of Overall Progress Improving Assessment of Improvement Pt was cooperative with total commmunication approach and utilized multimodal methods such as using phone maps for reference, using gestures, etc , to assist in communicating the target message. He was able to produce three-syllable words verbally given max cues today, but unclear if this will be repeatable. Further implementation of the device has the potential to significantly improve pt QOL. However, this will depend on pt's ability and motivation to explore the device, which appears to be significantly hindered by pt's pain and fatigue levels. Principles of motivational interviewing were utilized to increase awareness of deficits and promote use of device. POC and goals updated this date. Reviewed with Patient Home Exercise Program Plan Amount of Therapy Recommended 3 Months Frequency of Treatment Once a Week Length of Session 45 Minutes Treatment Emphasis Next Session Continue with AAC development Therapeutic Contents AAC,Cognitive-Linguistic Training,Expressive Language Training,Receptive Language Training Therapy Recommendations Continue with Current Program
--- NOTE | 2023-09-06 13:16 | ST.OPPOC ---
Physical, Occupational & Speech Therapy At [facility] Visit Care Team Role Provider Type Enzo Keita DO Attending Provider Physician Family Provider Primary Care Provider Referring Provider Address: [address] [place] [address], [address], [place], [address] Speech Pathology Plan of Care Plan of Care Dates 09/06/23-12/06/23 Referring Provider Enzo Keita DO Patient History Alexander is a 57-year-old man with a history of stroke in March of 2021, which the pt states he believes was caused by an adverse reaction to the Covid vaccine. 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 He initially presented to this facility for an evaluation of aphasia on . Prior to starting treatment at this facility, Alexander was briefly seen by an VICE PRESIDENT INVESTOR RELATIONS at [facility] (Haley Knox MA, CF-VICE PRESIDENT INVESTOR RELATIONS), where various treatment frameworks were introduced, including The Context-Based Approach for Wernicke's Aphasia, Supported Conversation for Adults with Aphasia, and Phonomotor Treatment. The last treatment note for speech-language therapy at that facility was from August 2021. Since evaluation at this facility, the pt has been working with the VICE PRESIDENT INVESTOR RELATIONS on total communication , including developing and trialing low-tech AAC (a communication binder with various velcro pictures of relevant locations, foods, interests , etc). Additionally, a phonomotor-based treatment has been trialed to assess whether rehabilitation of spontaneous speech may be attainable. Alexander has had limited carryover between trials of target words with a phonomotor approach. However, a total communication approach, especially with the use of pictures rather than written words, has been successful for Alexander. Tx continued with trials of robust speech- generating AAC device through [employer]. Trial was successful and pt has been issued his own dedicated AAC device through insurance. Impairments Identified Expressive language,Receptive language,Cognitive communication Progress Towards Goals Good Progress Self-awareness of Cognitive- Predictive awareness (abl Communication Deficits General Tasks and Demands Moderate Household Tasks Moderate Interpersonal Interactions Severe Education Severe Employment Severe Community Severe Being Left Alone at Home Moderate Reacting to Emergency Severe Managing Medication Severe Traveling Alone in Community Severe Additional Precautions Legal communication - pt wants to pursue lawsuit Short Term Goals 1. Pt will reduce medical risks by communicating medical information and physical symptoms with 80% accuracy independently via total communication (including AAC device). 07/19/23: Continue goal. Based on last data collection, Alexander was able to communicate medical concerns with approximately 70% accuracy. 09/06/23: Continue goal. Pt remains at approximately 70% accuracy. 2. Pt will utilize AAC device to communicate basic needs/preferences (food, places, etc) with 80% accuracy independently. 07/19/23: Continue goal. This goal has not been heavily targeted, with emphasis on training in communicating medical needs. Pt will benefit from continued customization to add preferred foods, drinks, activities, etc. He is showing increased ability to navigate the device independently, but still required mod verbal cues to find certain icons. 09/06/23: Continue goal. Pt with limited utilization of device outside of therapy. VICE PRESIDENT INVESTOR RELATIONS continuing to encourage device use in all contexts. Will need to discuss d/c if pt does not begin using device more regularly; however, he is still showing interest in using it at this time though carryover is limited, complicated by outside health concerns. 3. Pt and care partners will benefit from education in use and programming of AAC device. 07/19/23: Continue goal. Still awaiting pt's mother to join session to learn programming of device now that pt has received dedicated device . 09/06/23: Discontinue, goal met. Grips Goals Pt will communicate basic wants and needs with 80% accuracy independently using a total communication approach(verbal, gesture, AAC). 07/19/23: Ongoing goal, continue. 09/06/23: Ongoing goal, continue. Comment: Electronically Signed by: KIRSTY Natarajan 09/06/23 8521 If you are in agreement with this Plan of Care, please return a signed and dated copy. I have reviewed this Plan of Care and certify that the skilled therapy services above are required to meet the patient?s needs. Physician Signature Date Printed Name and Credentials
--- NOTE | 2023-09-13 13:13 | ST.OPTN ---
Visit Care Team Role Provider Type Enzo Keita DO Attending Provider Physician Family Provider Primary Care Provider Referring Provider Address: [address] [place] [address], [address], [place], [address] COLD REDUCTION ROLLER Treatment Note COLD REDUCTION ROLLER Treatment Note Start: 02/22/23 16:12 Freq: Status: Active Protocol: Document 09/13/23 13:10 CG (Rec: 09/13/23 13:13 CG [id number]) Speech Pathology Treatment Note Session Time Visit Start Time 12:15 Visit Stop Time 13:05 Total Visit Minutes 50 Visit Information Visit Number 15 Plan of Care Dates 09/06/23-12/06/23 Setting Treatment Setting Outpatient Care Visit Type Note Type Progress Note Next Note Type Next Note Type Treatment Note General Information Patient History Alexander is a 57-year-old man with a history of stroke in March of 2021, which the pt states he believes was caused by an adverse reaction to the Covid vaccine. 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 He initially presented to this facility for an evaluation of aphasia on 02/21/23. Prior to starting treatment at this facility, Alexander was briefly seen by an COLD REDUCTION ROLLER at [facility] (Haley Knox MA, CF-COLD REDUCTION ROLLER), where various treatment frameworks were introduced, including The Context-Based Approach for Wernicke's Aphasia, Supported Conversation for Adults with Aphasia, and Phonomotor Treatment. The last treatment note for speech-language therapy at that facility was from August 2021. Since evaluation at this facility, the pt has been working with the COLD REDUCTION ROLLER on total communication, including developing and trialing low- tech AAC (a communication binder with various velcro pictures of relevant locations , foods, interests, etc). Additionally, a phonomotor- based treatment has been trialed to assess whether rehabilitation of spontaneous speech may be attainable. Alexander has had limited carryover between trials of target words with a phonomotor approach. However, a total communication approach, especially with the use of pictures rather than written words, has been successful for Alexander. Tx continued with trials of robust speech-generating AAC device through [employer]. Trial was successful and pt has been issued his own dedicated AAC device through insurance. Subjective Identification Type Name Observations/Patient Presentation Alexander arrived on time to his appointment ambulated independently to the appointment room. He c/o shoulder pain and fatigue this session, but reports that he will be getting surgery for his left shoulder on Monday. Chief Complaint(s) Language Objective Short Term Goals 1. Pt will reduce medical risks by communicating medical information and physical symptoms with 80% accuracy independently via total communication (including AAC device). 07/19/23: Continue goal. Based on last data collection, Alexander was able to communicate medical concerns with approximately 70% accuracy. 09/06/23: Continue goal. Pt remains at approximately 70% accuracy. 2. Pt will utilize AAC device to communicate basic needs/ preferences (food, places, etc ) with 80% accuracy independently. 07/19/23: Continue goal. This goal has not been heavily targeted, with emphasis on training in communicating medical needs. Pt will benefit from continued customization to add preferred foods, drinks, activities, etc. He is showing increased ability to navigate the device independently, but still required mod verbal cues to find certain icons. 09/06/23: Continue goal. Pt with limited utilization of device outside of therapy. COLD REDUCTION ROLLER continuing to encourage device use in all contexts. Will need to discuss d/c if pt does not begin using device more regularly; however, he is still showing interest in using it at this time though carryover is limited, complicated by outside health concerns. 3. Pt and care partners will benefit from education in use and programming of AAC device. 07/19/23: Continue goal. Still awaiting pt's mother to join session to learn programming of device now that pt has received dedicated device. 09/06/23: Discontinue, goal met . Flat Breakdown Processor Goals Pt will communicate basic wants and needs with 80% accuracy independently using a total communication approach( verbal, gesture, AAC). 07/19/23: Ongoing goal, continue. 09/06/23: Ongoing goal, continue. Treatment Activities COLD REDUCTION ROLLER worked with pt for continued customization of device to increase ability to communicate wants/needs, medical information, and discuss interests to increase socialization and reduce isolation. Utilizing multimodal total communication and principles of Supported Conversation for Adults with Aphasia (SCAA), COLD REDUCTION ROLLER worked with pt to add further functional targets related to preferred music/bands and preferred food/drinks. Intermittently trialed pt navigation through device. Additionally, COLD REDUCTION ROLLER modeled use of the device for a functional conversation. Instructed the pt that his homework is to spend time each day scrolling through the device and exploring icons and folders. Assessment Patient Response to Treatment Good Rehab Potential Good Impairments Identified Expressive language,Receptive language,Cognitive communication Progress Towards Goals Good Progress Assessment of Overall Progress Improving Assessment of Improvement Pt was cooperative with total commmunication approach and utilized multimodal methods such as using phone maps for reference, using gestures, etc , to assist in communicating the target message. Pt was able to independently navigate to target icons in 67% of opportunities today, increasing to 100% given min visual/verbal cues. Further implementation of the device has the potential to significantly improve pt QOL. However, this will depend on pt's ability and motivation to explore the device, which appears to be significantly hindered by pt's pain and fatigue levels. Theoretically, pt participation should improve after shoulder surgery is complete and pain/fatigue levels are decreased. Reviewed with Patient Home Exercise Program Plan Amount of Therapy Recommended 3 Months Frequency of Treatment Once a Week Length of Session 45 Minutes Treatment Emphasis Next Session Continue with AAC development Therapeutic Contents AAC,Cognitive-Linguistic Training,Expressive Language Training,Receptive Language Training Therapy Recommendations Continue with Current Program
--- NOTE | 2023-09-21 13:00 | ST.OPTN ---
Visit Care Team Role Provider Type Enzo Keita DO Attending Provider Physician Family Provider Primary Care Provider Referring Provider Address: [address] [place] [address], [address], [place], [address] SOAKING TANK WORKER Treatment Note SOAKING TANK WORKER Treatment Note Start: 02/22/23 16:12 Freq: Status: Active Protocol: Document 09/21/23 12:57 CG (Rec: 09/21/23 13:00 CG [id number]) Speech Pathology Treatment Note Session Time Visit Start Time 11:15 Visit Stop Time 12:00 Total Visit Minutes 45 Visit Information Visit Number 16 Plan of Care Dates 09/06/23-12/06/23 Setting Treatment Setting Outpatient Care Visit Type Note Type Progress Note Next Note Type Next Note Type Treatment Note General Information Patient History Alexander is a 57-year-old man with a history of stroke in March of 2021, which the pt states he believes was caused by an adverse reaction to the Covid vaccine. 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 He initially presented to this facility for an evaluation of aphasia on 02/21/23. Prior to starting treatment at this facility, Alexander was briefly seen by an SOAKING TANK WORKER at [facility] (Haley Knox MA, CF-SOAKING TANK WORKER), where various treatment frameworks were introduced, including The Context-Based Approach for Wernicke's Aphasia, Supported Conversation for Adults with Aphasia, and Phonomotor Treatment. The last treatment note for speech-language therapy at that facility was from August 2021. Since evaluation at this facility, the pt has been working with the SOAKING TANK WORKER on total communication, including developing and trialing low- tech AAC (a communication binder with various velcro pictures of relevant locations , foods, interests, etc). Additionally, a phonomotor- based treatment has been trialed to assess whether rehabilitation of spontaneous speech may be attainable. Alexander has had limited carryover between trials of target words with a phonomotor approach. However, a total communication approach, especially with the use of pictures rather than written words, has been successful for Alexander. Tx continued with trials of robust speech-generating AAC device through [employer]. Trial was successful and pt has been issued his own dedicated AAC device through insurance. Subjective Identification Type Name Observations/Patient Presentation Alexander arrived on time to his appointment ambulated independently to the appointment room. He currently has his left arm in a sling due to recent shoulder surgery. Chief Complaint(s) Language Objective Short Term Goals 1. Pt will reduce medical risks by communicating medical information and physical symptoms with 80% accuracy independently via total communication (including AAC device). 07/19/23: Continue goal. Based on last data collection, Alexander was able to communicate medical concerns with approximately 70% accuracy. 09/06/23: Continue goal. Pt remains at approximately 70% accuracy. 2. Pt will utilize AAC device to communicate basic needs/ preferences (food, places, etc ) with 80% accuracy independently. 07/19/23: Continue goal. This goal has not been heavily targeted, with emphasis on training in communicating medical needs. Pt will benefit from continued customization to add preferred foods, drinks, activities, etc. He is showing increased ability to navigate the device independently, but still required mod verbal cues to find certain icons. 09/06/23: Continue goal. Pt with limited utilization of device outside of therapy. SOAKING TANK WORKER continuing to encourage device use in all contexts. Will need to discuss d/c if pt does not begin using device more regularly; however, he is still showing interest in using it at this time though carryover is limited, complicated by outside health concerns. 3. Pt and care partners will benefit from education in use and programming of AAC device. 07/19/23: Continue goal. Still awaiting pt's mother to join session to learn programming of device now that pt has received dedicated device. 09/06/23: Discontinue, goal met . Fpc Goals Pt will communicate basic wants and needs with 80% accuracy independently using a total communication approach( verbal, gesture, AAC). 07/19/23: Ongoing goal, continue. 09/06/23: Ongoing goal, continue. Treatment Activities SOAKING TANK WORKER worked with pt for continued customization of device to increase ability to communicate wants/needs, medical information, and discuss interests to increase socialization and reduce isolation. 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 Intermittently trialed pt navigation through device. Assessment Patient Response to Treatment Good Rehab Potential Good Impairments Identified Expressive language,Receptive language,Cognitive communication Progress Towards Goals Good Progress Assessment of Overall Progress Improving Assessment of Improvement Pt was cooperative with total commmunication approach and utilized multimodal methods such as using phone pictures for reference, using gestures, etc, to assist in communicating the target message. Pt was able to independently navigate to target icons in 75% of opportunities today, increasing to 100% given min visual/verbal cues. He is becoming faster with navigating through multi-touch sequences to utilize the device. Further implementation of the device has the potential to significantly improve pt QOL. Will discuss decreasing frequency to allow pt time to implement device usage at home and in the community. Reviewed with Patient Home Exercise Program Plan Amount of Therapy Recommended 3 Months Frequency of Treatment Once a Week Length of Session 45 Minutes Treatment Emphasis Next Session Continue with AAC development Therapeutic Contents AAC,Cognitive-Linguistic Training,Expressive Language Training,Receptive Language Training Therapy Recommendations Continue with Current Program
--- NOTE | 2023-10-04 12:54 | ST.OPTN ---
Visit Care Team Role Provider Type Enzo Keita DO Attending Provider Physician Family Provider Primary Care Provider Referring Provider Address: [address] [place] [address], [address], [place], [address] POLISHING WHEEL SETTER Treatment Note POLISHING WHEEL SETTER Treatment Note Start: 02/22/23 16:12 Freq: Status: Active Protocol: Document 10/04/23 12:50 CG (Rec: 10/04/23 12:54 CG [id number]) Speech Pathology Treatment Note Session Time Visit Start Time 12:15 Visit Stop Time 12:45 Total Visit Minutes 30 Visit Information Visit Number 17 Plan of Care Dates 09/06/23-12/06/23 Setting Treatment Setting Outpatient Care Visit Type Note Type Progress Note Next Note Type Next Note Type Treatment Note General Information Patient History Alexander is a 57-year-old man with a history of stroke in March of 2021, which the pt states he believes was caused by an adverse reaction to the Covid vaccine. 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 He initially presented to this facility for an evaluation of aphasia on 02/21/23. Prior to starting treatment at this facility, Alexander was briefly seen by an POLISHING WHEEL SETTER at [facility] (Haley Knox MA, CF-POLISHING WHEEL SETTER), where various treatment frameworks were introduced, including The Context-Based Approach for Wernicke's Aphasia, Supported Conversation for Adults with Aphasia, and Phonomotor Treatment. The last treatment note for speech-language therapy at that facility was from August 2021. Since evaluation at this facility, the pt has been working with the POLISHING WHEEL SETTER on total communication, including developing and trialing low- tech AAC (a communication binder with various velcro pictures of relevant locations , foods, interests, etc). Additionally, a phonomotor- based treatment has been trialed to assess whether rehabilitation of spontaneous speech may be attainable. Alexander has had limited carryover between trials of target words with a phonomotor approach. However, a total communication approach, especially with the use of pictures rather than written words, has been successful for Alexander. Tx continued with trials of robust speech-generating AAC device through [employer]. Trial was successful and pt has been issued his own dedicated AAC device through insurance. Subjective Identification Type Name Observations/Patient Presentation Alexander arrived on time to his appointment ambulated independently to the appointment room. He currently has his left arm in a sling due to recent shoulder surgery. Chief Complaint(s) Language Objective Short Term Goals 1. Pt will reduce medical risks by communicating medical information and physical symptoms with 80% accuracy independently via total communication (including AAC device). 07/19/23: Continue goal. Based on last data collection, Alexander was able to communicate medical concerns with approximately 70% accuracy. 09/06/23: Continue goal. Pt remains at approximately 70% accuracy. 2. Pt will utilize AAC device to communicate basic needs/ preferences (food, places, etc ) with 80% accuracy independently. 07/19/23: Continue goal. This goal has not been heavily targeted, with emphasis on training in communicating medical needs. Pt will benefit from continued customization to add preferred foods, drinks, activities, etc. He is showing increased ability to navigate the device independently, but still required mod verbal cues to find certain icons. 09/06/23: Continue goal. Pt with limited utilization of device outside of therapy. POLISHING WHEEL SETTER continuing to encourage device use in all contexts. Will need to discuss d/c if pt does not begin using device more regularly; however, he is still showing interest in using it at this time though carryover is limited, complicated by outside health concerns. 3. Pt and care partners will benefit from education in use and programming of AAC device. 07/19/23: Continue goal. Still awaiting pt's mother to join session to learn programming of device now that pt has received dedicated device. 09/06/23: Discontinue, goal met . Shelter Goals Pt will communicate basic wants and needs with 80% accuracy independently using a total communication approach( verbal, gesture, AAC). 07/19/23: Ongoing goal, continue. 09/06/23: Ongoing goal, continue. Treatment Activities Trialed pt navigation through device given various functional scenarios (ordering at a restaurant, describing symptoms at a doctors' appointment, planning a trip with a traveling freight agent) with graded cueing from POLISHING WHEEL SETTER. Assessment Patient Response to Treatment Good Rehab Potential Good Impairments Identified Expressive language,Receptive language,Cognitive communication Progress Towards Goals Good Progress Assessment of Overall Progress Improving Assessment of Improvement Pt was able to independently navigate to target icons in 70 % of opportunities today, increasing to 100% given min visual/verbal cues. He is becoming faster with navigating through multi-touch sequences to utilize the device. Further implementation of the device has the potential to significantly improve pt QOL. Talked to pt about the need for him to start using the device out in the world in order to increase carryover and improve his ability to communicate in real world scenarios. Discussed taking a month off from therapy in order to allow for practice with the device at home. Pt agreeable. Reviewed with Patient Home Exercise Program Plan Amount of Therapy Recommended 3 Months Frequency of Treatment Once a Week Length of Session 45 Minutes Treatment Emphasis Next Session Continue with AAC development Therapeutic Contents AAC,Cognitive-Linguistic Training,Expressive Language Training,Receptive Language Training Therapy Recommendations Continue with Current Program
--- NOTE | 2023-10-10 14:38 | ST.OPTN ---
Visit Care Team Role Provider Type Enzo Keita DO Attending Provider Physician Family Provider Primary Care Provider Referring Provider Address: [address] [place] [address], [address], [place], [address] AD TAKER Treatment Note AD TAKER Treatment Note Start: 02/22/23 16:12 Freq: Status: Active Protocol: Document 10/10/23 14:29 CG (Rec: 10/10/23 14:38 CG [id number]) Speech Pathology Treatment Note Session Time Visit Start Time 12:05 Visit Stop Time 12:20 Total Visit Minutes 15 Visit Information Visit Number 18 Plan of Care Dates 09/06/23-12/06/23 Setting Treatment Setting Outpatient Care Visit Type Note Type Progress Note Next Note Type Next Note Type Treatment Note General Information Patient History Alexander is a 57-year-old man with a history of stroke in March of 2021, which the pt states he believes was caused by an adverse reaction to the Covid vaccine. 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 He initially presented to this facility for an evaluation of aphasia on 02/21/23. Prior to starting treatment at this facility, Alexander was briefly seen by an AD TAKER at [facility] (Haley Knox MA, CF-AD TAKER), where various treatment frameworks were introduced, including The Context-Based Approach for Wernicke's Aphasia, Supported Conversation for Adults with Aphasia, and Phonomotor Treatment. The last treatment note for speech-language therapy at that facility was from August 2021. Since evaluation at this facility, the pt has been working with the AD TAKER on total communication, including developing and trialing low- tech AAC (a communication binder with various velcro pictures of relevant locations , foods, interests, etc). Additionally, a phonomotor- based treatment has been trialed to assess whether rehabilitation of spontaneous speech may be attainable. Alexander has had limited carryover between trials of target words with a phonomotor approach. However, a total communication approach, especially with the use of pictures rather than written words, has been successful for Alexander. Tx continued with trials of robust speech-generating AAC device through [employer]. Trial was successful and pt has been issued his own dedicated AAC device through insurance. Subjective Identification Type Name Observations/Patient Presentation Alexander arrived early to his appointment, which he attended with his mother. Chief Complaint(s) Language Objective Short Term Goals 1. Pt will reduce medical risks by communicating medical information and physical symptoms with 80% accuracy independently via total communication (including AAC device). 07/19/23: Continue goal. Based on last data collection, Alexander was able to communicate medical concerns with approximately 70% accuracy. 09/06/23: Continue goal. Pt remains at approximately 70% accuracy. 2. Pt will utilize AAC device to communicate basic needs/ preferences (food, places, etc ) with 80% accuracy independently. 07/19/23: Continue goal. This goal has not been heavily targeted, with emphasis on training in communicating medical needs. Pt will benefit from continued customization to add preferred foods, drinks, activities, etc. He is showing increased ability to navigate the device independently, but still required mod verbal cues to find certain icons. 09/06/23: Continue goal. Pt with limited utilization of device outside of therapy. AD TAKER continuing to encourage device use in all contexts. Will need to discuss d/c if pt does not begin using device more regularly; however, he is still showing interest in using it at this time though carryover is limited, complicated by outside health concerns. 3. Pt and care partners will benefit from education in use and programming of AAC device. 07/19/23: Continue goal. Still awaiting pt's mother to join session to learn programming of device now that pt has received dedicated device. 09/06/23: Discontinue, goal met . Parts Identifier Goals Pt will communicate basic wants and needs with 80% accuracy independently using a total communication approach( verbal, gesture, AAC). 07/19/23: Ongoing goal, continue. 09/06/23: Ongoing goal, continue. Treatment Activities Caregiver training with pt's mother on use of AAC device and implementation of device across settings (including restaurants, social events, etc). Caregiver training on programming new words into AAC device. Discussion with pt and caregiver regarding POC. Assessment Patient Response to Treatment Good Rehab Potential Good Impairments Identified Expressive language,Receptive language,Cognitive communication Progress Towards Goals Good Progress Assessment of Overall Progress Improving Assessment of Improvement Discussion with pt and his mother today included explanation that AD TAKER appts are to resume in a month after pt has some time to implement the use of the AAC device outside of the home. He is currently only using the device during therapy, and this com writer explained further to the pt and to the pt's mother that carryover and functional gains will be dependent upon pt using the device in real life scenarios. Explained the timeline of recovery after stroke, including that the pt is outside the window of most spontaneous recovery of previous speech-language function. Further explained, however, that there are still functional/QOL gains to be made with the help of AAC device. Pt is unlikely to regain consistent ability to produce target words without phonemic paraphasias; however, he is able to communicate his wants/needs with the use of an AAC device despite the presence of paraphasias. Pt and mother were in agreement with POC and plan to resume with scheduled appt on November 06. Reviewed with Patient Home Exercise Program Plan Amount of Therapy Recommended 3 Months Comment continue after one month off Length of Session 30 Minutes Therapeutic Contents AAC,Cognitive-Linguistic Training,Expressive Language Training,Receptive Language Training Therapy Recommendations Decrease Frequency of Rehabilitation,Other Comment pause for one month
--- NOTE | 2023-11-14 16:16 | ST.OPTN ---
Visit Care Team Role Provider Type Enzo Keita DO Attending Provider Physician Family Provider Primary Care Provider Referring Provider Address: [address] [place] [address], [address], [place], [address] STORE RECEIVER Treatment Note STORE RECEIVER Treatment Note Start: 02/22/23 16:12 Freq: Status: Active Protocol: Document 11/14/23 15:57 CG (Rec: 11/14/23 16:16 CG [id number]) Speech Pathology Treatment Note Session Time Visit Start Time 14:30 Visit Stop Time 15:10 Total Visit Minutes 40 Visit Information Visit Number 19 Plan of Care Dates 09/06/23-12/06/23 Setting Treatment Setting Outpatient Care Visit Type Note Type Progress Note Next Note Type Next Note Type Treatment Note General Information Patient History Alexander is a 57-year-old man with a history of stroke in March of 2021, which the pt states he believes was caused by an adverse reaction to the Covid vaccine. 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 He initially presented to this facility for an evaluation of aphasia on 02/21/23. Prior to starting treatment at this facility, Alexander was briefly seen by an STORE RECEIVER at [facility] (Haley Knox MA, CF-STORE RECEIVER), where various treatment frameworks were introduced, including The Context-Based Approach for Wernicke's Aphasia, Supported Conversation for Adults with Aphasia, and Phonomotor Treatment. The last treatment note for speech-language therapy at that facility was from August 2021. Since evaluation at this facility, the pt has been working with the STORE RECEIVER on total communication, including developing and trialing low- tech AAC (a communication binder with various velcro pictures of relevant locations , foods, interests, etc). Additionally, a phonomotor- based treatment has been trialed to assess whether rehabilitation of spontaneous speech may be attainable. Alexander has had limited carryover between trials of target words with a phonomotor approach. However, a total communication approach, especially with the use of pictures rather than written words, has been successful for Alexander. Tx continued with trials of robust speech-generating AAC device through [employer]. Trial was successful and pt has been issued his own dedicated AAC device through insurance. Subjective Identification Type Name Observations/Patient Presentation Alexander arrived early to his appointment, which he attended with his mother. Chief Complaint(s) Language Objective Short Term Goals 1. Pt will reduce medical risks by communicating medical information and physical symptoms with 80% accuracy independently via total communication (including AAC device). 07/19/23: Continue goal. Based on last data collection, Alexander was able to communicate medical concerns with approximately 70% accuracy. 09/06/23: Continue goal. Pt remains at approximately 70% accuracy. 2. Pt will utilize AAC device to communicate basic needs/ preferences (food, places, etc ) with 80% accuracy independently. 07/19/23: Continue goal. This goal has not been heavily targeted, with emphasis on training in communicating medical needs. Pt will benefit from continued customization to add preferred foods, drinks, activities, etc. He is showing increased ability to navigate the device independently, but still required mod verbal cues to find certain icons. 09/06/23: Continue goal. Pt with limited utilization of device outside of therapy. STORE RECEIVER continuing to encourage device use in all contexts. Will need to discuss d/c if pt does not begin using device more regularly; however, he is still showing interest in using it at this time though carryover is limited, complicated by outside health concerns. 3. Pt and care partners will benefit from education in use and programming of AAC device. 07/19/23: Continue goal. Still awaiting pt's mother to join session to learn programming of device now that pt has received dedicated device. 09/06/23: Discontinue, goal met . Frame Bender Goals Pt will communicate basic wants and needs with 80% accuracy independently using a total communication approach( verbal, gesture, AAC). 07/19/23: Ongoing goal, continue. 09/06/23: Ongoing goal, continue. Treatment Activities Discussion with pt regarding POC and barriers to progress. Re-administered QAB. Lengthy discussion re need for at-home practice with AAC device in order to make progress. Assessment Patient Response to Treatment Good Rehab Potential Good Impairments Identified Expressive language,Receptive language,Cognitive communication Progress Towards Goals Good Progress Assessment of Overall Progress Improving Assessment of Improvement Pt continues to only use his communication device during therapy, and this business writer explained further to the pt that carryover and functional gains will be dependent upon pt using the device in real life scenarios. Re-explained the timeline of recovery after stroke, including that the pt is outside the window of most spontaneous recovery of previous speech-language function. Pt has not complied with STORE RECEIVER instruction to practice with device at home and in the community. He states that he has been unable to practice with his device due to shoulder pain. STORE RECEIVER expressed that if his pain is holding him back from participating, we will need to take a break from speech therapy until this is under control as it is causing him to be non-compliant with home practice. Pt expressed understanding. Discussed that the pt should reach out to PCP for new referral once he feels his shoulder pain is under control. STORE RECEIVER re-administered the QAB for progress monitoring to solidify STORE RECEIVER suspicion that pt has plateud with progress in his verbal language abilities (without AAC). Pt scored the following: Word comprehension7.92 Sentence comprehension2.50 Word finding1.50 Grammatical construction3.88 Speech motor programming2.50 Repetition5.00 Reading5.83 QAB overall4.16 Pt previously scored a 4.38 overall, indicating that the pt's overall aphasia is relatively unchanged. Will d/ c due to lack of progress exacerbated by lack of compliance with home practice. Plan Comment Length of Session 30 Minutes Therapeutic Contents AAC,Cognitive-Linguistic Training,Expressive Language Training,Receptive Language Training Therapy Recommendations Discharge from Speech Therapy
--- NOTE | 2024-06-19 11:06 | ST.OPDS ---
Visit Care Team Role Provider Type Enzo Keita DO Attending Provider Physician Family Provider Primary Care Provider Referring Provider Address: [address] [place] [address], [address], [place], [address] DIRECTOR CONTENT MARKETING Discharge Note DIRECTOR CONTENT MARKETING Discharge Note Start: 02/22/23 16:12 Freq: Status: Active Protocol: Document 11/14/23 15:57 CG (Rec: 11/14/23 16:16 CG [id number]) Speech Pathology Treatment Note Session Time Visit Start Time 14:30 Visit Stop Time 15:10 Total Visit Minutes 40 Visit Information Visit Number 19 Plan of Care Dates 09/06/23-12/06/23 Setting Treatment Setting Outpatient Care Visit Type Note Type Progress Note Next Note Type Next Note Type Treatment Note General Information Patient History Alexander is a 57-year-old man with a history of stroke in March of 2021, which the pt states he believes was caused by an adverse reaction to the Covid vaccine. 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 He initially presented to this facility for an evaluation of aphasia on 02/21/23. Prior to starting treatment at this facility, Alexander was briefly seen by an DIRECTOR CONTENT MARKETING at [facility] (Haley Knox MA, CF-DIRECTOR CONTENT MARKETING), where various treatment frameworks were introduced, including The Context-Based Approach for Wernicke's Aphasia, Supported Conversation for Adults with Aphasia, and Phonomotor Treatment. The last treatment note for speech-language therapy at that facility was from August 2021. Since evaluation at this facility, the pt has been working with the DIRECTOR CONTENT MARKETING on total communication, including developing and trialing low- tech AAC (a communication binder with various velcro pictures of relevant locations , foods, interests, etc). Additionally, a phonomotor- based treatment has been trialed to assess whether rehabilitation of spontaneous speech may be attainable. Alexander has had limited carryover between trials of target words with a phonomotor approach. However, a total communication approach, especially with the use of pictures rather than written words, has been successful for Alexander. Tx continued with trials of robust speech-generating AAC device through [employer] Trial was successful and pt has been issued his own dedicated AAC device through insurance. Subjective Identification Type Name Observations/Patient Presentation Alexander arrived early to his appointment, which he attended with his mother. Chief Complaint(s) Language Objective Short Term Goals 1. Pt will reduce medical risks by communicating medical information and physical symptoms with 80% accuracy independently via total communication (including AAC device). 07/19/23: Continue goal. Based on last data collection, Alexander was able to communicate medical concerns with approximately 70% accuracy. 09/06/23: Continue goal. Pt remains at approximately 70% accuracy. 2. Pt will utilize AAC device to communicate basic needs/ preferences (food, places, etc ) with 80% accuracy independently. 07/19/23: Continue goal. This goal has not been heavily targeted, with emphasis on training in communicating medical needs. Pt will benefit from continued customization to add preferred foods, drinks, activities, etc. He is showing increased ability to navigate the device independently, but still required mod verbal cues to find certain icons. 09/06/23: Continue goal. Pt with limited utilization of device outside of therapy. DIRECTOR CONTENT MARKETING continuing to encourage device use in all contexts. Will need to discuss d/c if pt does not begin using device more regularly; however, he is still showing interest in using it at this time though carryover is limited, complicated by outside health concerns. 3. Pt and care partners will benefit from education in use and programming of AAC device. 07/19/23: Continue goal. Still awaiting pt's mother to join session to learn programming of device now that pt has received dedicated device. 09/06/23: Discontinue, goal met . Divisional Storekeeper Goals Pt will communicate basic wants and needs with 80% accuracy independently using a total communication approach( verbal, gesture, AAC). 07/19/23: Ongoing goal, continue. 09/06/23: Ongoing goal, continue. Treatment Activities Discussion with pt regarding POC and barriers to progress. Re-administered QAB. Lengthy discussion re need for at-home practice with AAC device in order to make progress. Assessment Patient Response to Treatment Good Rehab Potential Good Impairments Identified Expressive language,Receptive language,Cognitive communication Progress Towards Goals Good Progress Assessment of Overall Progress Improving Assessment of Improvement Pt continues to only use his communication device during therapy, and this travel writer explained further to the pt that carryover and functional gains will be dependent upon pt using the device in real life scenarios. Re-explained the timeline of recovery after stroke, including that the pt is outside the window of most spontaneous recovery of previous speech-language function. Pt has not complied with DIRECTOR CONTENT MARKETING instruction to practice with device at home and in the community. He states that he has been unable to practice with his device due to shoulder pain. DIRECTOR CONTENT MARKETING expressed that if his pain is holding him back from participating, we will need to take a break from speech therapy until this is under control as it is causing him to be non-compliant with home practice. Pt expressed understanding. Discussed that the pt should reach out to PCP for new referral once he feels his shoulder pain is under control. DIRECTOR CONTENT MARKETING re-administered the QAB for progress monitoring to solidify DIRECTOR CONTENT MARKETING suspicion that pt has plateud with progress in his verbal language abilities (without AAC). Pt scored the following: Word comprehension7.92 Sentence comprehension2.50 Word finding1.50 Grammatical construction3.88 Speech motor programming2.50 Repetition5.00 Reading5.83 QAB overall4.16 Pt previously scored a 4.38 overall, indicating that the pt's overall aphasia is relatively unchanged. D/ c due to lack of progress exacerbated by lack of compliance with home practice. Plan Amount of Therapy Recommended 3 Months Comment continue after one month off Length of Session 30 Minutes Therapeutic Contents AAC,Cognitive-Linguistic Training,Expressive Language Training,Receptive Language Training Therapy Recommendations Discharge from Speech Therapy
== END 2024-06-26 10:56 | disposition home or self-care (01) ==
LOC: SP 14:30
PROVIDERS: Absent Provider Family Medicine; Family Provider Family Medicine; PCP Family Medicine; Referring Provider Family Medicine; Visit Provider Family Medicine
DX: R47.01 Aphasia (principal); I63.9 Cerebral infarction, unspecified
CPT/HCPCS: 92507; 92523; 92607; 92609

== ENCOUNTER → 2024-01-16 13:07 | Outpatient (CLI) | payer MEDICARE, MEDICAID, SELFPAY ==
[2023-05-03 18:03] VITALS: BMI 36.2
== END ==
LOC: WC 13:09
PROVIDERS: Family Provider Family Medicine; PCP Family Medicine; Referring Provider Podiatrist; Visit Provider Surgery
DX: E11.42 Type 2 diabetes mellitus with diabetic polyneuropathy (principal); Z86.31 Personal history of diabetic foot ulcer
CPT/HCPCS: 99213

== ENCOUNTER → 2024-01-23 12:27 | Outpatient (CLI) | payer OTHER, MEDICAID, SELFPAY ==
[2023-05-03 18:03] VITALS: BMI 36.2
[2024-01-23 14:22] LABS: Hematocrit 39.7 % (41-53); Hemoglobin 13.7 g/dL (13.5-17.5); Mean Corpuscular HGB Conc 34.4 % (30-36); Mean Corpuscular Hemoglobin 31.4 PG (26-34); Mean Corpuscular Volume 91.2 fL (80-100); Platelet Count 265 X10^3/uL (150-400); Red Blood Cell Count 4.35 X10^6/uL (4.5-5.9); Red Cell Distribution Width 14.8 % (11.6-14.8)
[2024-01-23 14:46] LABS: BUN Creatinine Ratio 17.4 (6-22); Blood Urea Nitrogen 16 mg/dL (9-20); Calcium 10.1 mg/dL (8.4-10.2); Carbon Dioxide 24 mmol/L (22-32); Chloride 104 mmol/L (98-107); Cholesterol 169 mg/dL (140-199); Estimated Glomerular Filt Rate > 60 mL/min (>60); Glucose 95 mg/dL (70-100); HDL Cholesterol 73 mg/dL (40-60); HEMOLYSIS < 15 (0-50); Hemoglobin A1C% w Est Avg Glu 5.8 % (4.0-6.0); LDL Cholesterol Calculated 72 mg/dL (<100); Potassium 4.5 mmol/L (3.4-5.1); Sodium 140 mmol/L (137-145); Triglycerides 118 mg/dL (35-150)
== END ==
LOC: LAB 12:29
PROVIDERS: Family Provider Family Medicine; PCP Family Medicine; Referring Provider Family Medicine; Visit Provider Family Medicine
DX: E11.29 Type 2 diabetes mellitus with other diabetic kidney complication (principal); Z12.5 Encounter for screening for malignant neoplasm of prostate; R80.9 Proteinuria, unspecified; E78.5 Hyperlipidemia, unspecified; F17.200 Nicotine dependence, unspecified, uncomplicated; D64.9 Anemia, unspecified
CPT/HCPCS: 36415; 80048; 80061; 83036; 85027; G0103

== ENCOUNTER → 2024-04-23 14:27 | Outpatient (CLI) | payer OTHER, MEDICAID, SELFPAY ==
[2023-05-03 18:03] VITALS: BMI 36.2
[2024-04-23 15:31] LABS: Hemoglobin A1C% w Est Avg Glu 5.8 % (4.0-6.0)
[2024-04-23 15:44] LABS: BUN Creatinine Ratio 17.9 (6-22); Blood Urea Nitrogen 19 mg/dL (9-20); Calcium 9.7 mg/dL (8.4-10.2); Carbon Dioxide 26 mmol/L (22-32); Chloride 104 mmol/L (98-107); Estimated Glomerular Filt Rate > 60 mL/min (>60); Glucose 105 mg/dL (70-100); HEMOLYSIS < 15 (0-50); Potassium 4.8 mmol/L (3.4-5.1); Sodium 138 mmol/L (137-145)
== END ==
PROVIDERS: Family Provider Family Medicine; PCP Family Medicine; Referring Provider Family Medicine; Visit Provider Family Medicine
DX: E11.42 Type 2 diabetes mellitus with diabetic polyneuropathy (principal); E11.29 Type 2 diabetes mellitus with other diabetic kidney complication; R80.9 Proteinuria, unspecified
CPT/HCPCS: 36415; 80048; 83036

== ENCOUNTER → 2024-05-28 11:44 | Outpatient (CLI) | payer MEDICARE, MEDICAID, SELFPAY ==
[2023-05-03 18:03] VITALS: BMI 36.2
--- NOTE | 2024-05-28 | DI.MRI.S_ITS ---
PROCEDURE: MR SHOULDER LT WO CON INDICATIONS: rotator cuff tear or rupture TECHNIQUE: Noncontrast oblique coronal T2 fast spin echo with fat saturation, oblique sagittal T1 spin echo and T2 fast spin echo with fat saturation, axial T1 spin echo and T2 fast spin echo with fat saturation through the shoulder. COMPARISON: [facility], MR, MR SHOULDER LT WO CON, 08/01/2023, 12:12. [facility], MR, MR SHOULDER RT WO CON, 12/20/2022, 13:04. FINDINGS: Image quality: Excellent. Bones: Insertional cysts and mild marrow edema are present at the greater tuberosity (6/9). Susceptibility artifact is present at the greater tuberosity secondary to prior rotator cuff repair (16; 15). The bone marrow signal is otherwise normal. There is no acute fracture or dislocation. Acromioclavicular joint: Moderate osteoarthritis with pericapsular edema. There is a type 2 acromion with an inferiorly directed subacromial spur (02/07). Glenohumeral joint: Mild osteoarthritis. There is a small joint effusion. Labrum: There is circumferential fraying and tearing of the labrum. Cartilage: There is partial thickness chondral loss of the superior-medial humeral articular cartilage (/12) Subacromial-subdeltoid bursa: There is a small amount of fluid in the subacromial-subdeltoid bursa. Rotator cuff: Status post rotator cuff repair and superimposed on moderate-severe tendinosis, there are multifocal partial width, partial-thickness, articular sided and bursal sided tears of the conjoined supraspinatus/infraspinatus tendon, which result in decompression of joint fluid into the subacromial-subdeltoid bursa (03/14-). The joint fluid also progresses medially to exert inferiorly-directed mass effect on the supraspinatus myotendinous junction (/). However, there is no focal tendon retraction or loss of integrity of the tendon-suture anchor unit. There is severe subscapularis tendinosis. The teres minor tendon is intact. Long head of biceps tendon: There is low signal thickening of the long head of the biceps tendon, which is intact within the bicipital groove. There is a thinned and attenuated appearance of the intra-articular portion. Musculature: Mild supraspinatus muscle atrophy is present. Muscle bulk is otherwise preserved without denervation changes. Inferior glenohumeral ligaments/Axillary pouch: The axillary pouch is mildly thickened with low signal Coracoclavicular and coracoacromial ligaments: The coracoclavicular and coracoacromial ligaments are normal. Other: No other acute abnormality. IMPRESSION: 1. Status post rotator cuff repair with multifocal, partial width tears of the conjoined supraspinatus/infraspinatus tendon, with subsequent decompression into the subacromial-subdeltoid bursa. No evidence of full-thickness retraction or loss of integrity of the tendon-suture anchor unit. 2. Moderate-severe supraspinatus and infraspinatus tendinosis, with supraspinatus muscle atrophy. 3. Severe subscapularis tendinosis. 4. Mild glenohumeral osteoarthritis. 5. Moderate acromioclavicular osteoarthritis. 6. Chronic split tearing of the long head of the biceps tendon. Dictated by: Onesimo Barron M.D. on 05/30/2024 at 15:16 Approved by: Onesimo Barron M.D. on 05/30/2024 at 15:28
== END ==
PROVIDERS: Family Provider Family Medicine; PCP Family Medicine; Referring Provider Orthopaedic Surgery; Visit Provider Orthopaedic Surgery
DX: M75.122 Complete rotator cuff tear or rupture of left shoulder, not specified as traumatic (principal); M19.012 Primary osteoarthritis, left shoulder; S46.112A Strain of muscle, fascia and tendon of long head of biceps, left arm, initial encounter; M62.512 Muscle wasting and atrophy, not elsewhere classified, left shoulder; Z98.890 Other specified postprocedural states
CPT/HCPCS: 73221

== ENCOUNTER → 2024-07-18 12:22 | Outpatient (CLI) | payer OTHER, MEDICAID, SELFPAY ==
[2023-05-03 18:03] VITALS: BMI 36.2
[2024-07-18 13:06] LABS: Hemoglobin A1C% w Est Avg Glu 5.8 % (4.0-6.0)
== END ==
PROVIDERS: Family Provider Family Medicine; PCP Family Medicine; Referring Provider Family Medicine; Visit Provider Family Medicine
DX: E11.29 Type 2 diabetes mellitus with other diabetic kidney complication (principal); R80.9 Proteinuria, unspecified; I10 Essential (primary) hypertension
CPT/HCPCS: 36415; 83036

== ENCOUNTER → 2024-07-26 10:40 | Outpatient (CLI) | payer OTHER, MEDICAID, SELFPAY ==
[2023-05-03 18:03] VITALS: BMI 36.2
--- NOTE | 2024-07-26 10:41 | DI.CT.S_ITS ---
PROCEDURE: CT LUNG LOW DOSE SCREENING INDICATIONS: lung cancer screening TECHNIQUE: Noncontrast 2.0-2.5 mm thick sections acquired from the pulmonary apices to the posterior costophrenic angles. 7 mm thick axial MIP, and 5 mm coronal and sagittal reformats were then acquired. For radiation dose reduction, the following was used: automated exposure control, adjustment of mA and/or kV according to patient size. COMPARISON: [facility], CR, XR CHEST 1V, 04/30/2021, 14:04. FINDINGS: Image quality: Diagnostic. Lower Neck: No enlarged lymph nodes. Thyroid: No thyroid nodules which require sonographic follow up, per consensus guidelines. Axillae: No enlarged lymph nodes. Chest Wall: Unremarkable. Bones: Unremarkable. Lungs and Pleura: No pneumothorax or pleural effusions. No consolidation or malignant-appearing nodules. There is a 5 mm focal radiodensity at the undersurface of the major fissure at the anterolateral right lower lobe lung, which does not measure calcific in radiodensity. See image 3/223. Heart: Heart size is normal. No pericardial effusion. Thoracic Vessels: The aorta and pulmonary arteries demonstrate normal size. Mediastinum and Rosario: No enlarged lymph nodes. Esophagus: No wall thickening. No hiatal hernia. Upper Abdomen: Visualized upper abdomen solid organs and bowel loops appear normal. IMPRESSION: There is a 5 mm nodule identified at the undersurface of the major fissure right lower lung. This is best seen on CT series 3, image 223 and could represent a fissural lymph node. No prior comparison CT is available to establish this as chronic. LUNG-RADS category 3; recommend follow-up noncontrast low-dose CT scanning in 6 months given absence of comparison prior study. Clinically Significant Non-pulmonary Findings: None. Dictated by: Danis Christian M.D. on 07/26/2024 at 12:45 Approved by: Danis Christian M.D. on 07/26/2024 at 12:53
== END ==
PROVIDERS: Family Provider Family Medicine; PCP Family Medicine; Referring Provider Family Medicine; Visit Provider Family Medicine
DX: F17.210 Nicotine dependence, cigarettes, uncomplicated (principal); Z12.2 Encounter for screening for malignant neoplasm of respiratory organs; R91.1 Solitary pulmonary nodule
CPT/HCPCS: 71271

== ENCOUNTER 2024-08-19 07:21 | Day surgery (SDC) | payer MEDICARE, SELFPAY ==
[2023-05-03 18:03] VITALS: BMI 36.2
[2024-08-19 07:45] VITALS: BP 127/73; PULSE 77; RESP 16; TEMP 36.7; O2SAT 98
[2024-08-19] MEDS: LACTATED RINGERS 1,000 ML 42 ML IV (07:48)
--- NOTE | 2024-08-19 08:28 | PM.HP.IH.1 ---
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 Type 2 diabetes mellitus with moderate nonproliferative diabetic retinopathy with macular edema, left eye Type 2 diabetes mellitus with mild nonproliferative diabetic retinopathy without macular edema, right eye Type 2 diabetes mellitus with diabetic polyneuropathy Aphasia Tobacco dependence Foot ulcer due to secondary DM Hyperlipidemia Benign essential HTN Type 2 diabetes mellitus with foot ulcer, with long-term current use of insulin Hearing loss Stroke (~04/2021) Acne Cellulitis Surgical History (Updated 09/05/23 @ 09:57 by Alicia Banks RN) Hx of repair of right rotator cuff (05/03/23) Anesthesia History of tonsillectomy and adenoidectomy (~1970) Family History Father Alcohol abuse Sister Heart palpitations Hypertension Grandfather Diabetes mellitus Grandmother No problems noted. Social History household members: none Smoking Status: Current every day smoker Tobacco: How many years used: 40 alcohol intake: current substance use type: does not use Meds Home Medications and Allergies Home Medications Medication Instructions Recorded Confirmed Type blood-glucose meter,continuous #1 ea 01/06/22 07/22/24 Rx (Dexcom G6 Cosmetic Sales Assistant) blood-glucose sensor (Dexcom G6 #3 ea 01/06/22 07/22/24 Rx Sensor device) blood-glucose transmitter (Dexcom #1 ea 01/06/22 07/22/24 Rx G6 Transmitter device) lancets 33 gauge (BD Ultra Fine #100 ea 01/06/22 07/22/24 Rx Lancets) Diabetic shoes size 12W no. 38 #1 ea 12/20/22 07/22/24 Rx with diabetic inserts blood sugar diagnostic (Blood #100 ea 03/09/23 07/22/24 Rx Glucose Test strips) blood sugar diagnostic (True #100 ea 03/10/23 07/22/24 Rx Metrix Glucose Test Strip) blood-glucose meter (True Metrix #1 ea 03/10/23 07/22/24 Rx Glucose Meter) pen needle, diabetic 32 gauge x #100 ea 05/08/23 07/22/24 Rx 5/32 (Droplet Pen Needle) one touch Delica Plus lancets Fine #1 ea 09/12/23 07/22/24 Rx 30g blood sugar diagnostic (OneTouch #100 ea 09/18/23 07/22/24 Rx Verio test strips) amlodipine 10 mg tablet (Norvasc) 10 mg PO DAILY #90 tabs 04/08/24 08/19/24 Rx atorvastatin 80 mg tablet See Rx Instructions .Route 04/24/24 08/19/24 Rx .COMPLEX #90 tabs insulin glargine 100 unit/mL (3 50 unit (0.5 mL) SUBCUT DAILY #45 04/24/24 07/22/24 Rx mL) subcutaneous pen (Lantus mL Solostar U-100 Insulin) lisinopril 40 mg tablet 40 mg PO DAILY blood pressure #90 04/24/24 08/19/24 Rx tabs metformin 500 mg tablet,extended 1,000 mg (2 x 500 mg) PO DAILY for 07/10/24 08/19/24 Rx release 24 hr diabetes mellitus #180 tabs Allergies Allergy/AdvReac Type Severity Reaction Status Date / Time No Known Drug Allergies Allergy Verified 08/19/24 07:34 Exam Vital Signs (past 8 hours): - 08/19/24 07:45 Temperature 98.1 F Pulse Rate 77 Respiratory Rate 16 Blood Pressure 127/73 Pulse Oximetry 98 Oxygen Delivery Method Room Air Oxygen Delivery Method Room Air Narrative Exam Narrative: Oropharynx free of lesions Chest clear to auscultation percussion Cardiac exam is no S3 or murmur Assessment & Plan Assessment & Plan narrative: Need for follow-up screening colonoscopy. Risks, benefits, alternatives have been explained. Time-Based Coding :: [TOTAL MINUTES] spent with patient and on the chart (including review of chart, obtaining history, exam, reviewing outside data, placing orders, documenting exam and treatment plan, and counseling patient) on [DATE]. PROFEE Clinical Data Coordinator Document charge(s): No
--- NOTE | 2024-08-19 08:30 | PM.OP.COLON ---
Operative Date/Time/Diagnoses Date of procedure: 08/19/24 Pre-op diagnosis: See indication and findings Procedure & Clinicians Study performed: Colonoscopy Same procedure as scheduled: No Indications: Screening Surgeon: Saji Mcginnis Procedure Notes Procedure in detail: After informed consent was obtained the patient was placed in left lateral decubitus position. The video colonoscope was introduced the rectum slowly advanced towards cecum but preparation was quite poor from the onset. The scope was removed patient tolerated procedure well. Blood loss none Complications none Sedation mac Findings 1. Very poor prep. We will need to rescheduled with a double dose prep.
[2024-08-19 08:37] VITALS: BP 92/62; PULSE 60; RESP 14; TEMP 36.2; O2SAT 99
--- NOTE | 2024-08-19 08:39 | SUR.OPER ---
IN ADEQUATE PREP
[2024-08-19 08:41] VITALS: BP 99/61; PULSE 60; RESP 15; O2SAT 98
[2024-08-19 08:46] VITALS: BP 101/64; PULSE 65; RESP 16; O2SAT 95
[2024-08-19 08:51] VITALS: BP 107/66; PULSE 63; RESP 16; TEMP 36.5; O2SAT 95
[2024-08-19 09:03] VITALS: BP 111/68; PULSE 62; RESP 16; TEMP 36.5; O2SAT 96
== END 2024-08-19 09:09 | disposition home or self-care (01) ==
PROVIDERS: Family Provider Family Medicine; PCP Family Medicine; Referring Provider Internal Medicine Gastroenterology; Visit Provider Internal Medicine Gastroenterology
PROC: 0DJD8ZZ Inspection of Lower Intestinal Tract, Via Natural or Artificial Opening Endoscopic (ICD-10-PCS; CPT 45378; principal; 2024-08-19 08:30)
DX: Z12.11 Encounter for screening for malignant neoplasm of colon (principal); F17.210 Nicotine dependence, cigarettes, uncomplicated
CPT/HCPCS: G0121; 82962; G0105; J2704

== ENCOUNTER → 2024-10-31 11:57 | Outpatient (CLI) | payer OTHER, SELFPAY ==
[2023-05-03 18:03] VITALS: BMI 36.2
[2024-10-31 12:55] LABS: Hemoglobin A1C% w Est Avg Glu 5.8 % (4.0-6.0)
[2024-10-31 13:09] LABS: BUN Creatinine Ratio 27.5 (6-22); Blood Urea Nitrogen 25 mg/dL (9-20); Calcium 9.3 mg/dL (8.4-10.2); Carbon Dioxide 22 mmol/L (22-32); Chloride 104 mmol/L (98-107); Estimated Glomerular Filt Rate > 60 mL/min (>60); Glucose 147 mg/dL (70-99); HEMOLYSIS < 15 (0-50); Potassium 4.8 mmol/L (3.4-5.1); Sodium 136 mmol/L (137-145)
== END ==
PROVIDERS: Family Provider Family Medicine; PCP Family Medicine; Referring Provider Family Medicine; Visit Provider Family Medicine
DX: E11.3291 Type 2 diabetes mellitus with mild nonproliferative diabetic retinopathy without macular edema, right eye (principal); E11.3312 Type 2 diabetes mellitus with moderate nonproliferative diabetic retinopathy with macular edema, left eye; I10 Essential (primary) hypertension; E11.29 Type 2 diabetes mellitus with other diabetic kidney complication; R80.9 Proteinuria, unspecified
CPT/HCPCS: 36415; 80048; 83036

== ENCOUNTER → 2025-01-30 13:43 | Outpatient (CLI) | payer OTHER, MEDICAID, SELFPAY ==
[2023-05-03 18:03] VITALS: BMI 36.2
== END ==
PROVIDERS: Family Provider Family Medicine; PCP Family Medicine; Referring Provider Physician Assistant Surgical; Visit Provider Physician Assistant Surgical
DX: G56.20 Lesion of ulnar nerve, unspecified upper limb (principal); G56.23 Lesion of ulnar nerve, bilateral upper limbs
CPT/HCPCS: 95885; 95913

== ENCOUNTER 2025-03-20 08:47 | Day surgery (SDC) | payer MEDICARE, SELFPAY ==
[2025-02-20 14:03] VITALS: BMI 36.2
[2025-03-10 14:24] VITALS: BMI 32.1
[2025-03-20] VITALS (8 sets, daily range): BP systolic 113–156; BP diastolic 60–88; PULSE 58–72; RESP 10–20; TEMP 36.1–36.3; O2SAT 94–100
[2025-03-20] MEDS: LACTATED RINGERS 1,000 ML 42 ML IV ×2 (09:42→11:27)
[2025-03-20] MEDS: ACETAMINOPHEN 325 MG TABLET 975 MG PO (09:44)
--- NOTE | 2025-03-20 10:09 | P.OP.PRE_ITS ---
Pre-operative Note COVID-19 COVID-19 status: Not tested Interval Note History & Physical reviewed/Exam performed by Physician: Yes Changes to H&P: No H&P completed within 30 days and has changed as indicated here:: see updated H& P. It has been greater than 30 days.
--- NOTE | 2025-03-20 10:10 | PM.HP.IH.1 ---
History of Present Illness History of Present Illness Date Patient Seen: 03/20/25 Time Patient Seen: 10:05 Chief complaint: SDC Narrative: Chief Complaint: Paresthesias of bilateral hands HISTORY: 59 year old right-hand dominant male who presents to clinic today for evaluation of bilateral hand numbness. He has a history of a stroke in 2020 so history is slightly limited by aphasia, his mother presents to clinic today as a secondary historian. The issue began in September or October, with no specific injury noted, and has progressively worsened. He describes numbness in his pinky and half of his ring finger on both hands w/ L>R, he also notes some pain and weakness in his L pinky. He is not taking anything for the pain. PAST MEDICAL HISTORY: - Stroke in 2020 - Aphasia - Tobacco dependance - Type II DM PHYSICAL EXAMINATION: General: No acute distress. Alert and oriented. Expressive aphasia. Left Upper Extremity: Grossly normal alignment of the left hand w/ the exception of the L pinky and ring finger being held in a slightly flexed position at rest. Slight abduction posturing of the 5th finger. The 4th and 5th fingers are able to be passively extended to full extension. No significant swelling, no ecchymosis, no erythema. Loss of sensation noted in ulnar distribution of the hand most especially in the pinky finger. Atrophy of the index finger intrinsics Right Upper Extremity: Grossly normal alignment of the right hand w/ the exception of slight resting flexion deformity of the pinky finger. Very slight abduction posturing of the 5th finger. The 5th finger is able to be passively extended to full extension. No significant swelling, no ecchymosis, no erythema. Loss of sensation noted in ulnar distribution of the hand, most especially in the pinky finger. Nerve conduction study EMG: Left severe cubital tunnel syndrome. Right severe cubital tunnel syndrome Plan I discussed with Alexander and his power of criminal defense attorney the risks, benefits and alternatives of surgical versus nonsurgical treatment. I discussed with him the risks of surgical treatment to include but not limited to those to arteries COVID, nerves, need for additional surgery. Incomplete resolution of numbness tingling and paresthesias. I discussed the goal of the procedure was to stop further progression of the numbness tingling and paresthesias and weakness. He understands and his caregiver understands and all of their questions were answered. I will see him back for a right ulnar nerve release at the elbow and all other indicated procedures. 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 Peripheral vascular disease, unspecified Stroke (~04/2021) Tobacco dependence Type 2 diabetes mellitus with diabetic polyneuropathy Type 2 diabetes mellitus with foot ulcer, with long-term current use of insulin Type 2 diabetes mellitus with mild nonproliferative diabetic retinopathy with macular edema, bilateral Type 2 diabetes mellitus with mild nonproliferative diabetic retinopathy without macular edema, right eye Type 2 diabetes mellitus with moderate nonproliferative diabetic retinopathy with macular edema, left eye Surgical History (Updated 03/10/25 @ 14:37 by Alicia Banks RN) Anesthesia History of tonsillectomy and adenoidectomy (~1969) Hx of colonoscopy (08/19/24) Hx of repair of right rotator cuff (05/03/23) Family History Father Alcohol abuse Sister Heart palpitations Hypertension Grandfather Diabetes mellitus Grandmother No problems noted. Social History household members: none Smoking Status: Current every day smoker Tobacco: How many years used: 40 alcohol intake: current substance use type: does not use Meds Home Medications and Allergies Home Medications ?Medication ?Instructions ?Recorded ?Confirmed ?Type blood-glucose sensor (Dexcom G6 #3 ea 01/06/22 02/06/25 Rx Sensor device) blood-glucose transmitter (Dexcom #1 ea 01/06/22 02/06/25 Rx G6 Transmitter device) blood-glucose,sluice tender,cont #1 ea 01/06/22 02/06/25 Rx (Dexcom G6 Senior Technical Specialist) lancets 33 gauge (BD Ultra Fine #100 ea 01/06/22 02/06/25 Rx Lancets) Diabetic shoes size 12W no. 38 #1 ea 12/20/22 02/06/25 Rx with diabetic inserts blood sugar diagnostic (Blood #100 ea 03/09/23 02/06/25 Rx Glucose Test strips) blood sugar diagnostic (True #100 ea 03/10/23 02/06/25 Rx Metrix Glucose Test Strip) blood-glucose meter (True Metrix #1 ea 03/10/23 02/06/25 Rx Glucose Meter) pen needle, diabetic 32 gauge x #100 ea 05/08/23 02/06/25 Rx 5/32 (Droplet Pen Needle) one touch Delica Plus lancets Fine #1 ea 09/12/23 02/06/25 Rx 30g blood sugar diagnostic (OneTouch #100 ea 09/18/23 02/06/25 Rx Verio test strips) amlodipine 10 mg tablet (Norvasc) 10 mg PO DAILY #90 tabs 04/08/24 03/20/25 Rx atorvastatin 80 mg tablet See Rx Instructions .Route 04/24/24 03/20/25 Rx .COMPLEX #90 tabs insulin glargine 100 unit/mL (3 50 unit (0.5 mL) SUBCUT DAILY #45 04/24/24 03/20/25 Rx mL) subcutaneous pen (Lantus mL Solostar U-100 Insulin) lisinopril 40 mg tablet 40 mg PO DAILY blood pressure #90 04/24/24 03/20/25 Rx tabs metformin 500 mg tablet,extended 1,000 mg (2 x 500 mg) PO DAILY for 07/10/24 03/20/25 Rx release 24 hr diabetes mellitus #180 tabs ondansetron 4 mg disintegrating 4 mg PO Q8H PRN nausea and 02/06/25 03/20/25 Rx tablet vomiting #14 tabs oxycodone 5 mg tablet 5 mg PO Q4H PRN pain #30 tabs 02/06/25 03/20/25 Rx Allergies Allergy/AdvReac Type Severity Reaction Status Date / Time No Known Drug Allergies Allergy Verified 03/20/25 09:51 Exam Vital Signs (past 8 hours): - 03/20/25 09:52 Temperature 97.3 F L Pulse Rate 67 Respiratory Rate 16 Blood Pressure 128/88 Pulse Oximetry 100 Oxygen Delivery Method Room Air Oxygen Delivery Method Room Air Objective Labs Labs: Laboratory Results - last 24 hr 03/20/25 09:33 POC Whole Bld Glucose 100 H Assessment & Plan Assessment and plan (1) Cubital tunnel syndrome on right: Status: Acute Plan Proceed to OR for right open cubital tunnel release. Time-Based Coding :: [TOTAL MINUTES] spent with patient and on the chart (including review of chart, obtaining history, exam, reviewing outside data, placing orders, documenting exam and treatment plan, and counseling patient) on [DATE]. PROFEE Town Planner Document charge(s): No
--- NOTE | 2025-03-20 11:13 | SUR.OPER ---
Supine on padded OR bed, head on pillow, non operative arm secured on padded arm boards at <90 degrees abduction, operative arm on padded arm table, prepped into sterile field, legs uncrossed, safety belt at thigh, tape over blanket over lower legs. Provider approved final positioning
--- NOTE | 2025-03-20 11:56 | PM.OP.1 ---
Operative Date/Time/Diagnoses Date of procedure: 03/20/25 Time of procedure: 11:00 Pre-op diagnosis: Right cubital tunnel syndrome Post-op diagnosis: same Procedure & Clinicians Procedure: Right ulnar nerve cubital tunnel release and anterior transposition Same procedure(s) as scheduled: Yes Surgeon: Alise Chaves Assisted?: Yes Animal Physiology Teacher: Haylee Jaquez Anesthesia Type: General Operative Notes Findings: see below Closure Type: primary Specimen(s): none sent Applied: other (splint) Estimated Blood Loss (mL): 5 Blood products transfused: none Procedure in detail: Preoperative diagnosis: ?Right cubital tunnel syndrome Procedure performed: ?1) open cubital tunnel release and anterior subcutaneous transposition Postoperative diagnosis: Same Primary Surgeon: Alise Chaves, DO Animal Physiology Teacher:Haylee Jaquez PA-C Anesthesia: ?General EBL: 5 ml Tourniquet: 53 minutes @ 200 mmHg Indication For Surgery: Patient presented with signs and symptoms of cubital tunnel syndrome.? Conservative treatment did not result in adequate symptom improvement. The risks, benefits, and alternatives were discussed. Risks include pain, bleeding, infection, damage to nearby structures, pillar pain, wound healing complications, thumb weakness, numbness, lack of symptom relief, need for further surgery, DVT, PE, stroke, and . Written consent was obtained. Operative Findings: Subluxing ulnar nerve. Procedure in Detail: The patient was met in the pre-operative hold area. Consent was verified and operative extremity was signed. The patient then met with anesthesia and was brought back to the operating room. The patient was placed supine on the operating table. Anesthetic was administered. The extremity was then prepped and draped in the usual sterile fashion. A timeout was performed per protocol. A sterile tourniquet was placed An 8 cm incision was made at the medial aspect of the elbow centered between the medial epicondyle and olecranon.? Dissection was taken down to the cubital tunnel and there was an overlying anconeus epitrochlearis muscle the ulnar nerve was exposed and the cubital was released. Dissection was taken up proximally and to ensure that the ulnar nerve was completely released proximally and distally the nerve was traced into the flexor carpi ulnaris muscle belly the overlying fascia was released and I ensured that the nerve was free distally as well.? After complete release of the ulnar nerve I then ranged the elbow with flexion and extension and the nerve subluxed. I then used vessel loops to mobilize the nerve anteriorly and released some of the attachment so it was free to be moved anteriorly. I then created a subcutaneous fat flap. The nerve was transposed anteriorly and the fat flap was secured to the medial epicondyle with 2-0 FiberWire. After I secured it I ensured that the nerve was not pinched by at any point. The wound was then copiously irrigated. The elbow incision was closed with 2-0 Vicryl and 3-0 Monocryl.? A sterile dressing was applied consisting of Steri-Strips were used over the medial elbow incision next plain gauze was used as well as sterile Webril and a posterior splint was placed. at the end of the case 20 cc 0.25% Marcaine plain was injected into the incision sites.? The patient was awoken and taken to the PACU in stable condition.? All counts were correct at the end of the case.? Complications: none Post-operative Condition: stable Disposition: PACU
== END 2025-03-20 13:19 | disposition home or self-care (01) ==
PROVIDERS: Family Provider Family Medicine; PCP Family Medicine; Referring Provider Orthopaedic Surgery; Visit Provider Orthopaedic Surgery
PROC: (CPT 64718; principal; 2025-03-20 10:15)
DX: G56.21 Lesion of ulnar nerve, right upper limb (principal); E11.9 Type 2 diabetes mellitus without complications; I69.320 Aphasia following cerebral infarction; F17.210 Nicotine dependence, cigarettes, uncomplicated; Z79.4 Long term (current) use of insulin; Z79.84 Long term (current) use of oral hypoglycemic drugs
CPT/HCPCS: 64718; 82962; J0689; J1100; J1885; J2405; J2704; J7120

== ENCOUNTER → 2025-04-03 11:34 | Outpatient (CLI) | payer MEDICARE, SELFPAY ==
[2025-02-20 14:03] VITALS: BMI 36.2
[2025-04-03 12:43] LABS: Alanine Aminotransferase 17 IU/L (<50); Albumin 4.4 g/dL (3.5-5.0); Albumin Globulin Ratio 1.5 (1.0-2.8); Alkaline Phosphatase 77 U/L (38-126); Blood Urea Nitrogen 22 mg/dL (9-20); Calcium 9.6 mg/dL (8.4-10.2); Carbon Dioxide 24 mmol/L (22-32); Chloride 101 mmol/L (98-107); Cholesterol 121 mg/dL (140-199); Estimated Glomerular Filt Rate > 60 mL/min (>60); Globulin 3.0 g/dL (1.7-4.1); Glucose 134 mg/dL (70-99); HDL Cholesterol 61 mg/dL (40-60); HEMOLYSIS < 15 (0-50); Potassium 4.9 mmol/L (3.4-5.1); Sodium 135 mmol/L (137-145); Total Protein 7.4 g/dL (6.3-8.2); Triglycerides 89 mg/dL (35-150)
[2025-04-03 12:51] LABS: Hemoglobin A1C% w Est Avg Glu 5.9 % (4.0-6.0)
== END ==
PROVIDERS: PCP Family Medicine; Referring Provider Family Medicine; Visit Provider Family Medicine
DX: Z12.5 Encounter for screening for malignant neoplasm of prostate (principal); E11.42 Type 2 diabetes mellitus with diabetic polyneuropathy; E78.49 Other hyperlipidemia; I10 Essential (primary) hypertension; Z79.4 Long term (current) use of insulin
CPT/HCPCS: 36415; 80053; 80061; 83036; G0103